=== PATIENT | female | born 1995 | race Caucasian/White ===

== ENCOUNTER 2017-10-12 21:12 | Emergency (ER) | payer MEDICAID, SELFPAY ==
[2017-10-12 21:13] VITALS: BP 144/102; PULSE 87; RESP 20; TEMP 36.5; O2SAT 96; BMI 42.9
[2017-10-12 22:28] LABS: Absolute Lymphocyte Count 2.84 X10^3/ul (0.83-4.51); Absolute Neutrophil Count 10.5 X10^3/uL (2.0-7.7); Basophil# 0.02 X10^3/uL; Basophil% 0.1 % (0-1); Eosinophil# 0.05 X10^3/uL; Eosinophils% 0.3 % (0-5); Hematocrit 45.5 % (37-47); Hemoglobin 15.1 g/dl (12.0-15.0); Lymphocyte # 2.84 X10^3/ul (4.0); Lymphocyte % 19.9 % (19-41); Mean Corp Hgb Conc 33.2 g/gl (32-36); Mean Corpuscular Hgb 29.3 pg (27.0-32.0); Mean Corpuscular Volume 88.2 fL (81-99); Mean Platelet Vol. 9.1 fl (6.2-12.0); Monocyte# 0.84 X10^3/uL; Monocyte% 5.9 % (0-10); Neutrophil # 10.49 X10^3/uL (2.7-7.7); Neutrophil % 73.4 % (47-70); Platelet Count 283 K/mm3 (150-450); RBC Distribution Width CV 12.7 % (11.6-14.6); RBC Distribution Width SD 40.8 fl (35.1-43.9); Red Blood Count 5.16 M/mm3 (4.2-5.4); White Blood Count 14.3 K/mm3 (4.4-11.0)
[2017-10-12 22:29] LABS: POSITIVE COUNT NO; POSITIVE DIFFERENTIAL NO; POSITIVE MORPHOLOGY NO
[2017-10-12 22:50] LABS: Anion Gap 8 (5-15); BUN 7 mg/dL (7-18); BUN/Creat Ratio 9.6 RATIO (10-20); Calcium,Total 8.9 mg/dL (8.5-10.1); Chloride 107 mmol/L (98-107); Creatinine, Serum 0.73 mg/dL (0.55-1.02); EST Glomerular Filtration Rate 104 mL/min (>60); Est Glom Filt Rate - Afr Amer 126 mL/min (>60); Estimated Creatinine Clearance 102.61 ml/min; Glucose 99 mg/dL (74-106); Potassium 3.9 mmol/L (3.5-5.1); Sodium Level 140 mmol/L (136-145)
[2017-10-12 22:51] LABS: Alcohol, Blood (Medical)-Serum < 3.0 mg/dL
[2017-10-12 23:25] LABS: Pregnancy, Serum, hCG Quali. NEGATIVE Negative (0-9 Nonpreg)
--- NOTE | 2017-10-12 23:34 | NURSING ---
CALLED CRISIS TO SEE THIS PT, JEWELS IS CABLE RESPOOLER
[2017-10-12 23:55] VITALS: BP 132/82; PULSE 96; O2SAT 97
[2017-10-13 00:07] LABS: Vista UDS pH Range 6
[2017-10-13 00:20] LABS: Amphetamine Urine VISTA NEGATIVE (<1000 ng/mL); Barbiturate Urine VISTA NEGATIVE (< 200 ng/mL); Benzodiazepine Urine VISTA NEGATIVE (< 200 ng/mL); Cocaine Urine VISTA NEGATIVE (< 300 ng/mL); Ecstacy Urine VISTA NEGATIVE (< 500 ng/mL); Methadone Urine VISTA NEGATIVE (< 300 ng/mL); PCP Urine VISTA NEGATIVE (< 25 ng/mL); THC Urine VISTA NEGATIVE (< 50 ng/mL)
[2017-10-13 00:35] VITALS: BP 140/78; PULSE 82; RESP 17; O2SAT 96
--- NOTE | 2017-10-13 02:32 | ED.DCSUM_ITS ---
- ER Visit Summary Date of Service: 10/13/17 Chief Complaint: Suicidal thoughts History of Present Illness: The patient is a 22 F who has been feeling depressed due to in the past year, experienced of a nephew, then she had a miscarriage, than a month ago she had an ectopic . She just started treatment at the counseling center and is on no medications for depression yet. She was crying and acting out earlier, her fianc? said that when she does that she usually just needs her space and some time alone. However then she was in the bathroom carrying on and so he checked on her and she was getting some pills and acting as if she was trying to take a bunch of them. He said maybe a handful, less than 10 total, she does not know what the medication was as it was someone else's prescription. She said at that time, she had the intention of harming herself now is no longer suicidal though. She regrets doing that. Her boyfriend shook her to get the pills out of her mouth, she ended up swallowing none of them. She has no physical symptoms now and no recent illnesses. They had called crisis and they recommended that she be evaluated in the ER. Physical Examination: Normal vital signs, depressed affect but otherwise her physical exam is normal. Test Results: Labs, toxicology, all negative/normal. Emergency Department Course and Treatment: Crisis evaluated patient, they came up with a safety plan for home and close outpatient follow-up, she will be seen today later, at the counseling center for a counseling appointment. She is asking for something to take on an as-needed basis to help her calm down, I gave her a prescription for Vistaril and spoke with her fianc? separate from the patient, he is comfortable with her having that medication will help her manage it. I gave her a limited supply. Treatment Plan: As above Disposition: Discharge home Impression: Suicidal thoughts Major depression Situational reaction to stress This note was generated with [employer] dictation software. It may contain incorrect words, spelling, and punctuation that were not noted in review of the chart prior to signing ED Disposition - Plan for ED Patient: Disposition: Home or Assisted Living Chief Complaint: Suicidal Instructions: ED Depression Prescriptions: Hydroxyzine Pamoate [Vistaril] 50 mg PO 4X/DAY PRN PRN #20 cap PRN Reason: Anxiety Referrals: Counseling,Center [GROUP OF PHYSICIANS] - Keep Xavier appointment
[2017-10-13 02:33] VITALS: BP 158/97; PULSE 72; RESP 18; O2SAT 96
== END 2017-10-13 02:46 | disposition home or self-care (01) ==
PROVIDERS: Emergency Provider Emergency Medicine
DX: R45.851 Suicidal ideations (principal); F32.9 Major depressive disorder, single episode, unspecified; F43.9 Reaction to severe stress, unspecified; F41.9 Anxiety disorder, unspecified; E66.9 Obesity, unspecified
CPT/HCPCS: 80048; 80307; 80320; 84703; 85025; 99284; G0480

== ENCOUNTER 2018-03-14 09:46 | Emergency (ER) | payer MEDICAID, SELFPAY ==
[2018-03-14 09:47] VITALS: BP 137/82; PULSE 112; RESP 18; TEMP 36.3; O2SAT 95; BMI 42.1
--- NOTE | 2018-03-14 10:18 | ED.DCSUM_ITS ---
- ER Visit Summary Date of Service: 03/14/18 Chief Complaint: [Abdominal pain] History of Present Illness: The patient is a 22 F [presents the emergency department with complaint of abdominal pain off and on for the last 2 weeks. Patient states the first episode she had was about 2 weeks ago and it woke her up from sleep one morning. Patient states the pain will typically last about an hour and then resolved. Patient states at times she gets nauseated and does vomit when the pain hits. Patient states that about a week and a half ago she started having watery stools and has had typically anywhere from 5-10 watery stools per day. Patient denies any fever. She denies recent antibiotic usage or recent travel. Patient denies any sick contacts.] Physical Examination: [HEENT-PERRLA, EOMI. Cranial nerves II through XII grossly intact. TMs clear. Mucous membranes moist. No adenopathy. Cardiovascular-regular rate and rhythm without murmur or ectopy Lungs-clear to auscultation, chest wall stable without crepitus or subcu emphysema Abdomen-normoactive bowel sounds, soft. Patient has some diffuse tenderness on palpation with some mild guarding. No rebound, rigidity or perineal signs noted. Patient has a negative Angela sign. Extremities-intact ?4, normal range of motion, normal pulses, atraumatic] Test Results: [CBC with differential obtained showed a white count of 10.7, hemoglobin 14.6, hematocrit 44, platelets 269. Chemistries showed slight depressed potassium at 2.9 chemistries otherwise unremarkable. LFTs were normal. Urinalysis was unremarkable. HCG was negative.] Emergency Department Course and Treatment: [Patient was medicated in the emergency department with Bentyl, Toradol, and Phenergan.] Treatment Plan: [At this point I do not feel any imaging is indicated as patient has had intermittent abdominal pain for weeks. Her abdominal exam is benign. She has no tenderness over the area of the gallbladder. I do not feel her exam and history consistent with appendicitis. Stool was sent for enteric pathogens.] Disposition: [Discharged home in stable condition]. Patient will be referred to Dr. Janneth Cespedes for follow-up if her symptoms persist. Impression: [Abdominal pain-etiology uncertain Diarrhea] This note was generated with [employer]ation software. It may contain incorrect words, spelling, and punctuation that were not noted in review of the chart prior to signing ED Disposition - Plan for ED Patient: Chief Complaint: Abd Pain Referrals: Care Physician,No Primary [Primary Care Provider] -
[2018-03-14] MEDS: Ketorolac 30 MG/ML Syringe IV (10:27)
[2018-03-14] MEDS: Dicyclomine 20 MG/2 ML Vial IM (10:27)
[2018-03-14] MEDS: 0.9% Normal Saline 1,000 ML 125 ML IV (10:27)
[2018-03-14 10:34] LABS: Color, Urine Yellow (Yellow); Glucose, Dipstick Normal (Normal); Ketone-Dipstick 5 mg/dl (Negative); Leukocyte Esterase-Dipstick 100 /ul (Negative); Nitrite-Dipstick Negative (Negative); Occult Blood-Urine 10 /ul (Negative); Protein-Dipstick 30 mg/dl (Negative); Urine Clarity Cloudy (Clear); Urine Urobilinogen 1 mg/dl (Normal)
[2018-03-14 10:35] LABS: Absolute Lymphocyte Count 2.43 X10^3/ul (0.83-4.51); Absolute Neutrophil Count 7.3 X10^3/uL (2.0-7.7); Basophil# 0.03 X10^3/uL; Basophil% 0.3 % (0-1); Eosinophil# 0.19 X10^3/uL; Eosinophils% 1.8 % (0-5); Hematocrit 43.7 % (37-47); Hemoglobin 14.6 g/dl (12.0-15.0); Lymphocyte # 2.43 X10^3/ul (4.0); Lymphocyte % 22.8 % (19-41); Mean Corp Hgb Conc 33.4 g/gl (32-36); Mean Corpuscular Volume 86.9 fL (81-99); Mean Platelet Vol. 8.8 fl (6.2-12.0); Monocyte# 0.71 X10^3/uL; Monocyte% 6.6 % (0-10); Neutrophil # 7.31 X10^3/uL (2.7-7.7); Neutrophil % 68.4 % (47-70); Platelet Count 269 K/mm3 (150-450); RBC Distribution Width CV 13.3 % (11.6-14.6); RBC Distribution Width SD 42.3 fl (35.1-43.9); Red Blood Count 5.03 M/mm3 (4.2-5.4); White Blood Count 10.7 K/mm3 (4.4-11.0)
[2018-03-14 10:40] LABS: POSITIVE COUNT NO; POSITIVE DIFFERENTIAL NO; POSITIVE MORPHOLOGY NO; Urine Bilirubin Dipstick 1 mg/dL (Negative)
[2018-03-14 10:43] LABS: Bacteria 2+ /hpf (None Seen); Calcium Oxalate Crystals Ur 1+ /hpf (<or=2+); Mucous, Urine 2+ /hpf (<or=2+); Red Blood Cells-Urine 0-5 SEEN /hpf (0-5); Squamous Epithelial Cells - UA 5-10 SEEN /hpf (5-10); White Blood Cells 0-5 SEEN /hpf (0-5)
[2018-03-14 10:51] LABS: AST(SGOT) 15 U/L (15-37); Alanine Aminotransfer ALT/SGPT 25 U/L (13-56); Albumin, Serum 3.7 g/dL (3.2-5.0); Alkaline Phosphatase 106 U/L (45-117); Anion Gap 10 (5-15); BUN 7 mg/dL (7-18); BUN/Creat Ratio 8.1 RATIO (10-20); Calcium,Total 8.3 mg/dL (8.5-10.1); Chloride 104 mmol/L (98-107); Creatinine, Serum 0.86 mg/dL (0.55-1.02); EST Glomerular Filtration Rate 85 mL/min (>60); Est Glom Filt Rate - Afr Amer 103 mL/min (>60); Globulin 3.8 g/dL (2.2-4.2); Glucose 103 mg/dL (74-106); Lipase 83 U/L (73-393); Potassium 2.9 mmol/L (3.5-5.1); Protein, Total 7.5 g/dL (6.4-8.2); Sodium Level 141 mmol/L (136-145)
[2018-03-14 10:53] LABS: Pregnancy, Serum, hCG Quali. NEGATIVE Negative (0-9 Nonpreg)
[2018-03-14] MEDS: proMETHazine 25 MG/ML Syringe 12.5 MG IV (11:45)
[2018-03-14 11:47] VITALS: BP 134/83; PULSE 91; RESP 15; O2SAT 99
--- NOTE | 2018-03-14 12:01 | ED.DEP ---
ED Disposition - Plan for ED Patient: Chief Complaint: Abd Pain Instructions: ED Abdominal Pain Unkn Cause, ED Gastroenteritis Report Pend Prescriptions: Ondansetron [Zofran Odt] 4 mg PO Q8H PRN PRN #10 tab PRN Reason: Nausea Dicyclomine HCl [Bentyl] 10 mg PO TIDAC #20 cap Lansoprazole [Prevacid] 30 mg PO DAILY #30 cap Referrals: Care Physician,No Primary [Primary Care Provider] - Janneth Cespedes MD [STAFF PHYSICIAN] - 3-5 Days
[2018-03-14 12:10] VITALS: BP 117/81; PULSE 86; RESP 12; O2SAT 99
== END 2018-03-14 12:13 | disposition home or self-care (01) ==
LOC: ED 10:47
PROVIDERS: Emergency Provider Emergency Medicine
DX: R10.9 Unspecified abdominal pain (principal); R19.7 Diarrhea, unspecified; R11.2 Nausea with vomiting, unspecified
CPT/HCPCS: 80053; 81001; 83690; 84703; 85025; 87506; 96361; 96372; 96374; 96375; 99283; J7030

== ENCOUNTER → 2018-09-29 16:26 | Outpatient (CLI) | payer MEDICAID, SELFPAY ==
[2018-09-29 17:41] LABS: hCG Titer Quant., Serum < 1 mIU/mL (<9 non-preg)
== END ==
PROVIDERS: Referring Provider Obstetrics & Gynecology; Visit Provider Obstetrics & Gynecology
DX: N91.2 Amenorrhea, unspecified (principal)
CPT/HCPCS: 36415; 84702

== ENCOUNTER → 2019-07-07 16:37 | Outpatient (CLI) | payer MEDICAID, SELFPAY ==
[2019-07-07 18:18] LABS: hCG Titer Quant., Serum 112 mIU/mL (1-3)
== END ==
PROVIDERS: Visit Provider Obstetrics & Gynecology
DX: N91.2 Amenorrhea, unspecified (principal); O20.0 Threatened abortion; R87.613 High grade squamous intraepithelial lesion on cytologic smear of cervix (HGSIL); Z12.4 Encounter for screening for malignant neoplasm of cervix; Z11.3 Encounter for screening for infections with a predominantly sexual mode of transmission
CPT/HCPCS: 36415; 84702

== ENCOUNTER → 2019-07-09 16:58 | Outpatient (CLI) | payer MEDICAID, SELFPAY ==
[2019-07-09 17:26] LABS: hCG Titer Quant., Serum 77 mIU/mL (1-3)
== END ==
PROVIDERS: Referring Provider Obstetrics & Gynecology; Visit Provider Obstetrics & Gynecology
DX: N91.2 Amenorrhea, unspecified (principal); O20.0 Threatened abortion; Z3A.00 Weeks of gestation of pregnancy not specified
CPT/HCPCS: 36415; 84702

== ENCOUNTER 2019-07-14 16:36 | Outpatient (RCR) | payer MEDICAID, SELFPAY ==
[2019-07-14 17:48] LABS: hCG Titer Quant., Serum 43 mIU/mL (1-3)
== END 2019-07-14 18:00 | disposition home or self-care (01) ==
LOC: LAB 16:36
PROVIDERS: Referring Provider Obstetrics & Gynecology; Visit Provider Obstetrics & Gynecology
DX: O03.9 Complete or unspecified spontaneous abortion without complication (principal)
CPT/HCPCS: 36415; 84702

== ENCOUNTER 2020-04-11 16:30 | Emergency (ER) | payer MEDICAID, SELFPAY ==
[2020-04-11 16:31] VITALS: BP 142/62; PULSE 99; RESP 19; TEMP 36.9; O2SAT 96; BMI 49.4
[2020-04-11 17:08] VITALS: BP 142/62; PULSE 99; RESP 19; TEMP 36.9; O2SAT 96
--- NOTE | 2020-04-11 17:11 | CT_ITS ---
STUDY: CT ABDOMEN AND PELVIS WITH CONTRAST REASON FOR EXAM: Female, 24 years old. LT ABD PAIN. H/O R SIDE OVARIAN CYST SX LAST FRI RADIATION DOSAGE (If Supplied By Facility): CTDIvol = ( 13.75 ) mGy, DLP = ( 1357.82 ) mGycm TECHNIQUE: Transaxial images were obtained from the dome of the diaphragm to the symphysis pubis without oral contrast. Oral and amp; IV Gastrografin and amp; 100mL Isovue-300 was administered. Sagittal and coronal images were reconstructed. Individualized dose optimization techniques were used for this CT. COMPARISON: Previous study of 03/06/2016 FINDINGS: The visualized lung bases are unremarkable. The visualized portions of the heart are within normal limits. Normal liver. Normal gallbladder and extrahepatic biliary system. Normal spleen. Normal pancreas. Normal bilateral adrenal glands. Normal right kidney. Normal left kidney. Normal visualized stomach. Normal small intestine. Normal colon. The appendix is visualized and appears normal. Normal abdominal aorta. Normal inferior vena cava. Normal retroperitoneum. Normal urinary bladder. Uterus and adnexal structures are within normal limits. There is a tiny amount of free fluid in the deep pelvis. There are several punctate air densities in the subcutaneous soft tissues of the umbilical region and left rectus muscle. Normal osseous structures. CT/Abdomen/Pelvis WITH Contrast IMPRESSION: Tiny amount of free fluid in the deep pelvis. No ovarian cyst is seen. Several punctate air densities seen in the subcutaneous soft tissues of the umbilical region and left rectus muscle. These are of unknown etiology or significance. Electronically Signed: Bart Sanchez MD at 19:30 EDT , Service support ,
--- NOTE | 2020-04-11 17:14 | ED.DCSUM_ITS ---
- ER Visit Summary Date of Service: 04/11/20 Chief Complaint: Abdominal pain History of Present Illness: The patient is a 24 F who presents with abdominal pain that began yesterday. Patient states it has gradually gotten worse. Patient describes the pain is burning and aching. Patient states the pain is over the lower abdomen. Patient states it started on the left but is spreading over to the right side. Patient states her pain is worse with movement. Patient states she had recent surgery 5 days ago for ovarian cyst. Patient denies any nausea or vomiting. Patient denies any diarrhea, melena, or hematochezia. Patient denies any dysuria or hematuria. Patient denies any fevers or chills. Patient states she is currently on her menstrual cycle. Physical Examination: Vital signs are stable. Patient is afebrile. Patient is in no acute distress. Oral mucosa is pink and moist. Neck is supple. Trachea is midline. There is no JVD. Heart was regular rate and rhythm. Lungs are clear and equal bilaterally. Abdomen is soft. Bowel sounds are normal. There is tenderness over the lower abdomen. There is no rebound or guarding noted. There is some mild erythema and induration over the lower part of the incision. There is no discharge or drainage. There is no fluctuance or abscess formation. Cranial nerves II through XII are intact. There are no focal motor or sensory deficits noted. Test Results: CBC shows mild leukocytosis of 14.8. Comprehensive metabolic profile and urinalysis were normal. Lactate was normal. Serum hCG was negative. CT scan of the abdomen and pelvis was obtained. There is no acute intra-abdominal pathology. There are small pockets of air in the infraumbilical area. This is most likely consistent with recent surgery. Interpreted by the radiologist and reviewed by myself. Emergency Department Course and Treatment: Patient was given morphine and Zofran here. Patient was given a dose of Unasyn here. Patient was started on Augmentin. Patient was instructed to follow-up with her surgeon and primary care physician in 5 to 7 days. Patient was instructed to return if worse in any way. Patient understood and was agreeable with the plan. All questions were answered. Disposition: Discharge home Impression: Abdominal cellulitis This note was generated with [employer] dictation software. It may contain incorrect words, spelling, and punctuation that were not noted in review of the chart prior to signing ED Disposition - Plan for ED Patient: Disposition: Home or Assisted Living Diagnosis: Abdominal wall cellulitis Instructions: ED Cellulitis Prescriptions: Amox/Clavulanate Tablet [Augmentin Tablet] 875 mg PO Q12H #20 tab Prescription Printed Hydrocodone Bitart/Apap 5-325 [Art 5MG-325MG] 1 tab PO Q6H PRN PRN 3 Days #10 tab PRN Reason: Pain Prescription Printed Referrals: Carlos Zavala MD [Primary Care Provider] -
[2020-04-11 17:48] LABS: Absolute Lymphocyte Count 2.61 X10^3/uL (0.83-4.51); Absolute Neutrophil Count 11.1 X10^3/uL (2.0-7.7); Basophil# 0.04 X10^3/uL; Basophil% 0.3 % (0-1); Eosinophil# 0.11 X10^3/uL; Eosinophils% 0.7 % (0-5); Hematocrit 43.2 % (37-47); Lymphocyte # 2.61 X10^3/ul (4.0); Lymphocyte % 17.6 % (19-41); Mean Corp Hgb Conc 32.4 g/dL (32-36); Mean Corpuscular Hgb 29.2 pg (27.0-32.0); Mean Platelet Vol. 9.1 fl (6.2-12.0); Monocyte# 0.89 X10^3/uL; NRBC Flagged by Analyzer 0 % (0-5); Neutrophil % 74.8 % (47-70); Platelet Count 326 K/mm3 (150-450); RBC Distribution Width CV 12.6 % (11.6-14.6); RBC Distribution Width SD 41.6 fl (35.1-43.9); White Blood Count 14.8 K/mm3 (4.4-11.0)
[2020-04-11 17:50] LABS: Bacteria 0 SEEN /hpf (None Seen); Mucous, Urine 0 SEEN /hpf (<or=2+); Red Blood Cells-Urine 0 SEEN /hpf (0-5)
[2020-04-11 17:52] LABS: Color, Urine Yellow (Yellow); Glucose, Dipstick Normal (Normal); Ketone-Dipstick Negative (Negative); Leukocyte Esterase-Dipstick 25 /ul (Negative); Nitrite-Dipstick Negative (Negative); Occult Blood-Urine 10 /ul (Negative); Protein-Dipstick Negative (Negative); Urine Bilirubin Dipstick Negative (Negative); Urine Clarity Clear (Clear); Urine Urobilinogen Normal (Normal)
[2020-04-11] MEDS: 0.9% Normal Saline 1,000 ML 1000 ML IV (17:56)
[2020-04-11] MEDS: Ondansetron 4 MG/2 ML Vial IV (17:57)
[2020-04-11] MEDS: Morphine 4 MG/ML Syringe IV (17:58)
[2020-04-11 18:06] LABS: ALB/GLOB Ratio 0.9 RATIO (0.9-2.4); AST(SGOT) 16 U/L (15-37); Alanine Aminotransfer ALT/SGPT 44 U/L (13-56); Albumin, Serum 3.5 g/dL (3.2-5.0); Alkaline Phosphatase 100 U/L (45-117); Anion Gap 4 (5-15); BUN 8 mg/dL (7-18); BUN/Creat Ratio 11.3 RATIO (10-20); Calcium,Total 8.8 mg/dL (8.5-10.1); Chloride 104 mmol/L (98-107); Creatinine, Serum 0.71 mg/dL (0.55-1.02); EST Glomerular Filtration Rate 106 mL/min (>60); Est Glom Filt Rate - Afr Amer 128 mL/min (>60); Estimated Creatinine Clearance 99.33 ml/min; Glucose 78 mg/dL (74-106); Potassium 3.5 mmol/L (3.5-5.1); Protein, Total 7.5 g/dL (6.4-8.2); Sodium Level 140 mmol/L (136-145)
[2020-04-11 18:08] LABS: Internal QC Validated? YES +Cl - CLEAR BKGD; Pregnancy, Serum, hCG Quali. NEGATIVE Negative
[2020-04-11 18:27] LABS: Lactic Acid 1.3 mmol/L (0.4-1.9)
[2020-04-11 19:01] LABS: Squamous Epithelial Cells - UA 5-10 SEEN /hpf (5-10); White Blood Cells 0-5 SEEN /hpf (0-5)
[2020-04-11 19:31] VITALS: BP 137/94; PULSE 97; RESP 16; RESP 18; TEMP 37.4; O2SAT 97
[2020-04-11 21:03] VITALS: BP 141/93; PULSE 90; PULSE 96; RESP 14; RESP 16; TEMP 37.2; O2SAT 98; O2SAT 99
[2020-04-11 22:07] VITALS: BP 141/93; PULSE 96; RESP 16; TEMP 37.2; O2SAT 99
== END 2020-04-11 22:09 | disposition home or self-care (01) ==
PROVIDERS: Emergency Provider Emergency Medicine; PCP Family Medicine
DX: L03.311 Cellulitis of abdominal wall (principal); E66.9 Obesity, unspecified; K21.9 Gastro-esophageal reflux disease without esophagitis; F41.9 Anxiety disorder, unspecified; G43.909 Migraine, unspecified, not intractable, without status migrainosus; Z79.899 Other long term (current) drug therapy
CPT/HCPCS: 74177; 80053; 81001; 83605; 84703; 85025; 96361; 96365; 96374; 96375; 99285; J7030; A4216; J0295; J2405

== ENCOUNTER 2020-04-12 22:10 | Emergency (ER) | payer MEDICAID, SELFPAY ==
[2020-04-11 16:31] VITALS: BMI 49.4
[2020-04-12 22:11] VITALS: BP 158/86; PULSE 89; RESP 16; TEMP 36.4; O2SAT 96; BMI 49.4
--- NOTE | 2020-04-12 23:14 | ED.VIS.GI ---
History of Present Illness Chief Complaint: Wound Informant: Patient - Abdominal Pain/Flank Pain Onset: Days Context: Gradual Onset Narrative: Patient is a 24-year-old female with morbid obesity presenting with drainage from her operative incision site. Patient had exploratory laparoscopy on 04/06 at [facility] for concern for suspected right ovarian torsion. He was found to have a ruptured hemorrhagic cyst. She came to the ER yesterday where she was seen for worsening pain in her incision site and redness. Patient was thought to have cellulitis and had a CT and blood work. She was given a dose of Unasyn and discharged home with Augmentin. Patient followed up with her local OB, Dr. Vega at [facility] today. Was thought that her abdominal pain was more from muscle soreness associated with her incision?per the patient. Tonight patient did not have any change in her pain was continued to have diffuse abdominal pain. She started to have bloody drainage from the base of her incision and came to the emergency room for further evaluation. She denies any fever or chills. She denies any nausea or vomiting. Said some mild constipation but attributes that to her pain medication. Her last bowel movement was yesterday. She been taking Percocet at home for pain. Patient denies any urinary symptoms. Past Medical History - Allergies and Home Meds Allergies/Adverse Reactions: Allergies hydromorphone HCl [From Dilaudid] Allergy (Severe, Verified 04/12/20 22:13) Anaphylaxis meperidine HCl [From Demerol] Adverse Reaction (Verified 04/12/20 22:13) PT STATES DOES NOT LIKE THE WAY IT MAKES HER FEEL Primary Care Physician: Carlos Zavala MD [Primary Care Provider] - Bright Vega MD [STAFF PHYSICIAN] - Past Medical History: - - History of ectopic Surgical History: - - Left salpingectomy Lives: Spouse/ Significant Other Smoking Status: Former smoker Review of Systems General: Denies: Chills, Fever, Sweats Eyes: Denies: Visual changes - bilaterally, Diplopia ENT: Denies: Rhinorrhea, Sore throat Cardiovascular: Denies: Chest pain, Palpitations Respiratory: Denies: Dyspnea, Cough, Dyspnea on exertion Gastrointestinal: Reports: Abdominal pain, Constipation. Denies: Nausea, Vomiting, Diarrhea, Melena, Hematochezia Genitourinary: Denies: Dysuria, Hematuria, Frequency Musculoskeletal: Denies: Back pain, Extremity Pain Skin: Reports: Wounds - Lower mid abdomen. Denies: Rash Neurological: Denies: Headache, Weakness, Numbness Physical Exam Vital Signs/Narrative: Vital Signs Temp Pulse Resp BP Pulse Ox 04/12/20 22:11 97.6 F L 89 16 158/86 H 96 Inital Vital Signs reviewed: Yes General: Well nourished, Well developed, Obese, No Acute Distress Head: Normocephalic, Atraumatic Eyes: Perrl, EOMI ENT: Moist mucous membranes, No rhinorrhea Neck: Supple, Nontender Cardiovascular: Regular rate, Regular rhythm, No murmurs Respiratory: No distress, CTA bilaterally, Chest nontender Abdomen: Soft, Nondistended, Normal bowel sounds, Tender - Diffuse but more focused in the suprapubic region and the left side. Negative for: Guarding, Rebound tenderness Back: Nontender, Normal Inspection. Negative for: CVA tenderness Extremities: Nontender, No edema Skin: Normal color, Rash, - - Surgical midline incision below the level of the umbilicus. At the base of the incision patient has bloody/purulent discharge coming out with surrounding erythema and some mild skin induration. It is tender to palpation. Neurological: Alert, Oriented x3, Cranial nerves II-XII grossly intact, Normal Strength, Normal Sensation Psychological: Normal affect, Normal Mood Diagnostic/Tx/Re-eval Laboratory Data 04/12/20 04/12/20 04/12/20 23:14 23:14 23:14 WBC 13.6 H RBC 4.46 Hgb 13.0 Hct 40.0 MCV 89.7 MCH 29.1 MCHC 32.5 RDW Std Deviation 41.9 RDW Coeff of Michel 12.7 Plt Count 326 MPV 9.4 Immature Gran % (Auto) 0.700 Neut % (Auto) 68.3 Lymph % (Auto) 22.6 [place] % (Auto) 7.2 Eos % (Auto) 0.9 Baso % (Auto) 0.3 Absolute Neuts (auto) 9.3 H Absolute Lymphs (auto) 3.06 Nucleated RBC % 0 Sodium 140 Potassium 4.1 Chloride 107 Carbon Dioxide 29.0 Anion Gap 4 L BUN 11 Creatinine 0.67 Estim Creat Clear Calc 105.26 Est GFR (MDRD) Af Amer 137 Est GFR (MDRD) Non-Af 113 BUN/Creatinine Ratio 16.5 Glucose 102 Lactic Acid 1.3 Calcium 8.6 Total Bilirubin 0.60 AST 56 H ALT 49 Alkaline Phosphatase 109 Total Protein 6.9 Albumin 3.1 L Globulin 3.8 Albumin/Globulin Ratio 0.8 L Lipase 82 Urine Color Urine Clarity Urine pH Ur Specific [place] Urine Protein Urine Glucose (UA) Urine Ketones Urine Occult Blood Urine Nitrite Urine Bilirubin Urine Urobilinogen Ur Leukocyte Esterase Urine RBC Urine WBC Ur Squamous Epith Cells Urine Bacteria Urine Mucus Urine Test 04/13/20 04/13/20 00:01 00:01 WBC RBC Hgb Hct MCV MCH MCHC RDW Std Deviation RDW Coeff of Michel Plt Count MPV Immature Gran % (Auto) Neut % (Auto) Lymph % (Auto) [place] % (Auto) Eos % (Auto) Baso % (Auto) Absolute Neuts (auto) Absolute Lymphs (auto) Nucleated RBC % Sodium Potassium Chloride Carbon Dioxide Anion Gap BUN Creatinine Estim Creat Clear Calc Est GFR (MDRD) Af Amer Est GFR (MDRD) Non-Af BUN/Creatinine Ratio Glucose Lactic Acid Calcium Total Bilirubin AST ALT Alkaline Phosphatase Total Protein Albumin Globulin Albumin/Globulin Ratio Lipase Urine Color Yellow Urine Clarity Clear Urine pH 7.0 Ur Specific [place] 1.010 Urine Protein Negative Urine Glucose (UA) Normal Urine Ketones Negative Urine Occult Blood 150 H Urine Nitrite Negative Urine Bilirubin Negative Urine Urobilinogen 12 H Ur Leukocyte Esterase 25 H Urine RBC 0-5 SEEN Urine WBC 0-5 SEEN Ur Squamous Epith Cells 0-5 SEEN Urine Bacteria 0 SEEN Urine Mucus 0 SEEN Urine Test Negative - Medical Decision Making Patient is evaluated for bleeding from her operative site. Patient is one-week postop from exploratory laparoscopy for suspected ovarian torsion. Patient did not have a torsion. She has had difficulty with pain control since the surgery and was seen yesterday and diagnosed with surgical site and cellulitis. Patient's drainage is consistent with a spontaneous draining abscess. CT from yesterday is reviewed which does show small superficial abscess this suspect is the source of the drainage. Patient has improvement of her leukocytosis and while her abdomen is tender it is not peritoneal. Her lactate is normal. She does not have any acute laboratory abnormalities. I do not think repeat imaging is indicated at this time. Patient is given morphine and Zofran for pain control in the emergency room. Wound culture is obtained from the site but patient will be continued on Augmentin. I do not think there is been enough time to consider this a failure of outpatient antibiotics as she was a started on them yesterday. In addition as the surgical site is now draining well I do not think it needs to be opened up further. Case is discussed with Dr. Vega, her [employer], who is agreeable with this plan. He actually evaluated her earlier today and it sounds like her abdominal exam is not changed except for the now draining abscess. Patient is counseled on signs and symptoms requiring return to the emergency room. Patient verbalizes agreement and understand this plan. Patient discharged home in stable and improved condition. ED Disposition - Plan for ED Patient: Disposition: Home or Assisted Living Diagnosis: Abdominal wall abscess at site of surgical wound Instructions: ED Abscess Antibiotic Treatment Only, ED Wound Infection after surgery Referrals: Carlos Zavala MD [Primary Care Provider] - Bright Vega MD [STAFF PHYSICIAN] - Additional Instructions: Continue taking antibiotics as prescribed. Continue to encourage drainage of the abscess with warm compresses. Please follow-up closely with your [employer], Dr. Vega.
[2020-04-12] MEDS: morphine 8 MG/ML Syringe 6 MG IV (23:20)
[2020-04-12] MEDS: Ondansetron 4 MG/2 ML Vial IV (23:27)
[2020-04-12 23:52] LABS: Absolute Lymphocyte Count 3.06 X10^3/uL (0.83-4.51); Absolute Neutrophil Count 9.3 X10^3/uL (2.0-7.7); Basophil# 0.04 X10^3/uL; Basophil% 0.3 % (0-1); Eosinophil# 0.12 X10^3/uL; Eosinophils% 0.9 % (0-5); Lymphocyte # 3.06 X10^3/ul (4.0); Lymphocyte % 22.6 % (19-41); Mean Corp Hgb Conc 32.5 g/dL (32-36); Mean Corpuscular Hgb 29.1 pg (27.0-32.0); Mean Corpuscular Volume 89.7 fL (81-99); Mean Platelet Vol. 9.4 fl (6.2-12.0); Monocyte# 0.98 X10^3/uL; Monocyte% 7.2 % (0-10); NRBC Flagged by Analyzer 0 % (0-5); Neutrophil # 9.26 X10^3/uL (2.7-7.7); Neutrophil % 68.3 % (47-70); Platelet Count 326 K/mm3 (150-450); RBC Distribution Width CV 12.7 % (11.6-14.6); RBC Distribution Width SD 41.9 fl (35.1-43.9); Red Blood Count 4.46 M/mm3 (4.2-5.4); White Blood Count 13.6 K/mm3 (4.4-11.0)
[2020-04-12 23:54] LABS: ALB/GLOB Ratio 0.8 RATIO (0.9-2.4); AST(SGOT) 56 U/L (15-37); Alanine Aminotransfer ALT/SGPT 49 U/L (13-56); Albumin, Serum 3.1 g/dL (3.2-5.0); Alkaline Phosphatase 109 U/L (45-117); Anion Gap 4 (5-15); BUN 11 mg/dL (7-18); BUN/Creat Ratio 16.5 RATIO (10-20); Calcium,Total 8.6 mg/dL (8.5-10.1); Chloride 107 mmol/L (98-107); Creatinine, Serum 0.67 mg/dL (0.55-1.02); EST Glomerular Filtration Rate 113 mL/min (>60); Est Glom Filt Rate - Afr Amer 137 mL/min (>60); Estimated Creatinine Clearance 105.26 ml/min; Globulin 3.8 g/dL (2.2-4.2); Glucose 102 mg/dL (74-106); Lipase 82 U/L (73-393); Potassium 4.1 mmol/L (3.5-5.1); Protein, Total 6.9 g/dL (6.4-8.2); Sodium Level 140 mmol/L (136-145)
[2020-04-13 00:01] LABS: Lactic Acid 1.3 mmol/L (0.4-1.9)
[2020-04-13 00:10] LABS: Bacteria 0 SEEN /hpf (None Seen); Mucous, Urine 0 SEEN /hpf (<or=2+)
[2020-04-13 00:11] LABS: Color, Urine Yellow (Yellow); Glucose, Dipstick Normal (Normal); Ketone-Dipstick Negative (Negative); Leukocyte Esterase-Dipstick 25 /ul (Negative); Nitrite-Dipstick Negative (Negative); Occult Blood-Urine 150 /ul (Negative); Protein-Dipstick Negative (Negative); Urine Bilirubin Dipstick Negative (Negative); Urine Clarity Clear (Clear); Urine Urobilinogen 12 mg/dl (Normal)
[2020-04-13 00:14] LABS: Internal QC Validated? YES +Cl - CLEAR BKGD; Pregnancy, Urine Negative Negative
[2020-04-13 00:16] VITALS: RESP 16
[2020-04-13 00:17] LABS: Red Blood Cells-Urine 0-5 SEEN /hpf (0-5); Squamous Epithelial Cells - UA 0-5 SEEN /hpf (5-10); White Blood Cells 0-5 SEEN /hpf (0-5)
[2020-04-13 02:18] VITALS: RESP 16
== END 2020-04-13 02:18 | disposition home or self-care (01) ==
PROVIDERS: Emergency Provider Emergency Medicine; PCP Family Medicine
DX: T81.41XA Infection following a procedure, superficial incisional surgical site, initial encounter (principal); L02.211 Cutaneous abscess of abdominal wall; K59.00 Constipation, unspecified; E66.01 Morbid (severe) obesity due to excess calories; Z87.891 Personal history of nicotine dependence
CPT/HCPCS: 80053; 81001; 81025; 83605; 83690; 85025; 87070; 87205; 96374; 96375; 99283; A4216; J2405

== ENCOUNTER → 2020-05-03 11:38 | Outpatient (CLI) | payer MEDICAID, SELFPAY ==
[2020-04-12 22:11] VITALS: BMI 49.4
[2020-05-03 12:04] LABS: Bacteria 0 SEEN /hpf (None Seen); Mucous, Urine 0 SEEN /hpf (<or=2+); Red Blood Cells-Urine 0 SEEN /hpf (0-5)
[2020-05-03 14:12] LABS: Color, Urine Yellow (Yellow); Glucose, Dipstick Normal (Normal); Ketone-Dipstick Negative (Negative); Leukocyte Esterase-Dipstick 100 /ul (Negative); Nitrite-Dipstick Negative (Negative); Occult Blood-Urine Negative /ul (Negative); Protein-Dipstick Negative (Negative); Urine Bilirubin Dipstick Negative (Negative); Urine Clarity Sl. Cloudy (Clear); Urine Urobilinogen Normal (Normal)
[2020-05-03 14:18] LABS: Squamous Epithelial Cells - UA 0-5 SEEN /hpf (5-10); White Blood Cells 10-25 SEEN /hpf (0-5)
== END ==
PROVIDERS: PCP Family Medicine; Visit Provider Obstetrics & Gynecology
DX: R30.0 Dysuria (principal)
CPT/HCPCS: 81001; 87077; 87086; 87088; 87186

== ENCOUNTER → 2020-05-22 | Outpatient (CLI) | payer MEDICAID, SELFPAY | END | disposition home or self-care (01) | LOC: LABSPEC 16:47 | PROVIDERS: PCP Family Medicine; Visit Provider Obstetrics & Gynecology | DX: N39.0 Urinary tract infection, site not specified (principal) | CPT/HCPCS: 87086; 87088 ==

== ENCOUNTER → 2020-05-31 16:38 | Outpatient (CLI) | payer MEDICAID, SELFPAY | PROVIDERS: PCP Family Medicine; Visit Provider Obstetrics & Gynecology | DX: R30.0 Dysuria (principal) | CPT/HCPCS: 87077; 87086; 87088; 87186 ==

== ENCOUNTER 2021-12-10 09:37 | Emergency (ER) | payer MEDICAID, SELFPAY ==
[2021-12-10 09:40] VITALS: BP 154/104; PULSE 68; RESP 14; TEMP 36.1; O2SAT 97; BMI 48.7
--- NOTE | 2021-12-10 09:54 | ED.VIS.FEGU ---
HPI HPI - Female History of Present Illness Chief Complaint: Vag Bleeding Detail of Chief Complaint: Patient presents with vaginal bleeding that started 3 days ago Informant: patient Narrative Narrative: Patient presents to the emergency department with vaginal bleeding that initially started 3 days ago and she felt was a normal period. Patient states this morning she was having a lot of lower abdominal cramping which initially started last evening. Patient passed a large clot and I was concerned that she might be having a miscarriage. Patient has not missed any periods. Patient is on the Nexplanon contraceptive. She denies urinary symptoms. Patient states that after she passed a clot she is now just having minimal bleeding. She denies feeling lightheaded or dizzy. Patient is G6, P1 with 3 abortions and 2 ectopic pregnancies. Prior similar symptoms: Yes PFSH PFSH Home Medications amoxicillin-pot clavulanate 875 mg PO Q12H #20 tab 04/11/20 [Rx Last Taken Unknown] meloxicam 15 mg PO DAILY 04/11/20 [History Last Taken Unknown] memantine 10 mg PO DAILY 04/11/20 [History Last Taken Unknown] omeprazole 20 mg PO DAILY 04/11/20 [History Last Taken Unknown] oxycodone-acetaminophen 1 tab PO Q4H PRN PRN 04/11/20 [History Last Taken Unknown] trazodone 50 mg PO QHS 04/11/20 [History Last Taken Unknown] Allergy/AdvReac Type Severity Reaction Status Date / Time hydromorphone HCl Allergy Severe Anaphylaxis Verified 12/10/21 09:39 [From Dilaudid] meperidine HCl [From Demerol] AdvReac PT STATES Verified 12/10/21 09:39 DOES NOT LIKE THE WAY IT MAKES HER FEEL Social History Smoking Status: Former smoker ROS ROS ED Constitutional Constitutional ED: Reports systems reviewed and no addt'l complaints, except as documented; Denies body ache(s), change in weight or chills Eyes Eyes: Denies acute decrease in peripheral vision, change in vision, double vision or loss of vision ENT ENT ED: Reports none; Denies ear pain, lip swelling, loss taste/smell, neck pain, otalgia or sore throat Cardiovascular Cardiovascular: Reports none; Denies abdominal pain, chest pain with activity, leg edema, lightheadedness, palpitations, rapid heart rate or syncope Respiratory/Chest Respiratory/Chest: Reports none; Denies change in mental status, dry cough, dyspnea, hemoptysis, shortness of breath at rest or shortness of breath with exertion Gastrointestinal Gastrointestinal: Reports none and abdominal pain; Denies change in stool character, diarrhea, hematemesis, hematochezia, melena, rectal bleeding or vomiting Genitourinary Genitourinary ED: Reports none and other Details: Vaginal bleeding ; Denies abdominal discomfort, anuria, dysuria, genital pain or polyuria Musculoskeletal Musculoskeletal: Reports none; Denies arthralgias, back pain, difficulty walking, extremity pain, muscle weakness or myalgias Integumentary Reports none; Denies abscess or rash Neurologic Neurologic: Reports none; Denies abnormal gait, confusion, focal weakness, frequent falls, headache(s), loss of vision, numbness, paresthesias, radicular pain, vertigo or weakness Psychiatric Psychiatric: Reports systems reviewed and no addt'l complaints, except as documented and none; Denies behavioral changes, confusion, difficulty concentrating, hallucinations, suicidal ideation, tactile hallucinations or visual hallucinations Endocrine Endocrinology: Denies none, cold intolerance, excessive sweating, fatigue or heat intolerance Hematologic/Lymphatic Hematologic/Lymphatic: Reports none; Denies anemia, easy bleeding or easy bruising Allergic/Immunologic Allergic/Immunologic ED: Denies as per HPI, none, lip swelling, mouth swelling, throat swelling, tongue swelling or hives EXAM Physical Exam Const Vital Signs: 12/10/21 09:40 12/10/21 10:13 Temperature 97 F L Temperature Source Temporal Pulse Rate 68 Pulse Rate [Lying] 72 Pulse Rate [Sitting (for 1 minute prior to obtaining)] 73 Pulse Rate [Standing (for 1 minute prior to obtaining)] 68 Respiratory Rate 14 Blood Pressure 154/104 H Blood Pressure [Lying] 141/77 H Blood Pressure [Sitting (for 1 minute prior to obtaining)] 130/66 H Blood Pressure [Standing (for 1 minute prior to obtaining)] 135/83 H Blood Pressure Mean 120 Blood Pressure Mean [Lying] 98 Blood Pressure Mean [Sitting (for 1 minute prior to obtaining)] 87 Blood Pressure Mean [Standing (for 1 minute prior to obtaining)] 100 Pulse Ox 97 Oxygen Delivery Method Room Air Positive well nourished and well developed General Appearance ED: well developed and NAD HEENT Reports TM's clear and moist mucous membranes normocephalic and atraumatic; Negative for trauma or tenderness Tympanic Membrane ED: Yes TM's clear Eyes PERRL and EOMs intact bilaterally General Eye ED: Negative for pale conjunctiva or scleral icterus Neck no lymphadenopathy, supple and no JVD General: Negative for tenderness Chest Wall inspection of chest normal and palpation of chest normal Chest: Negative for tenderness Resp normal respiratory effort and clear to auscultation bilaterally Effort and Inspection: Negative for respiratory distress or pain with movement Auscultation: Negative for rhonchi, wheezes or diminished lung sounds Cardio regular rate, regular rhythm, S1 normal heart sound, S2 normal heart sound and no murmurs Peripheral Pulses: pulses 2+ throughout GI normal to inspection, nondistended, normoactive bowel sounds, soft to palpation, non-tender, non-distended and no masses Back/Spine no CVA tenderness and no thoracic nor lumbar tenderness Extremity normal to inspection General Extremety ED: Negative for edema General Extremity: Negative for edema Neuro oriented x3, CN's II-XII intact bilaterally, no sensory deficits noted and gait normal Sensorium / Orientation: awake, alert, oriented to person, oriented to place and oriented to time Motor Exam: strength 5/5 throughout and strength abnormal Psych mental status grossly normal Skin no rashes or lesions noted and no wounds MDM MDM MDM Narrative Medical decision making narrative: IV line established on arrival. Lab work was unremarkable. I did do a Hemoccult that was positive although she had brown stool. On rectal exam I did not appreciate any hemorrhoids or fissures or masses in the rectal vault. Patient had a CT scan of the abdomen pelvis due to the fact that she has had bright red blood per rectum for about 3 months. Patient does not know her family history as she is adopted. On CT scan of the abdomen pelvis there is nothing acute noted and no evidence for Crohn's or ulcerative colitis. At this point I feel patient can follow-up with GI for possible colonoscopy. Patient advised to return if persistent heavy bleeding, worsening abdominal pain, lightheadedness, or condition should worsen anyway. Orthostatic vital signs were negative here. Lab Data Attestation: I reviewed the patient's lab results. Labs: Laboratory Results - last 24 hr 12/10/21 12/10/21 12/10/21 09:45 10:05 10:05 WBC 8.3 RBC 4.90 Hgb 14.6 Hct 42.4 MCV 86.5 MCH 29.8 MCHC 34.4 RDW Std Deviation 40.5 RDW Coeff of Michel 12.9 Plt Count 255 MPV 9.0 Immature Gran % (Auto) 0.500 Neut % (Auto) 64.7 Lymph % (Auto) 25.2 [place] % (Auto) 8.8 Eos % (Auto) 0.6 Baso % (Auto) 0.2 Absolute Neuts (auto) 5.3 Absolute Lymphs (auto) 2.08 Nucleated RBC % 0 Serum , Qual NEGATIVE Urine Color Yellow Urine Clarity Sl. Cloudy Urine pH 8.0 Ur Specific [place] 1.010 Urine Protein Negative Urine Glucose (UA) Normal Urine Ketones Negative Urine Occult Blood 250 H Urine Nitrite Negative Urine Bilirubin Negative Urine Urobilinogen Normal Ur Leukocyte Esterase Negative Urine RBC 25-50 SEEN Urine WBC 0 SEEN Ur Squamous Epith Cells 0-5 SEEN Urine Bacteria 1+ Urine Mucus 0 SEEN Radiography Diagnostic Testing: Clinical Impression(s) from Imaging Studies Abdomen/Pelvis CT 12/10/21 10:35 IMPRESSION: Normal enhanced CT of the abdomen and pelvis. Electronically Signed: Saul Ahmadi MD at 11:08 EDT , Discharge Plan Triage Chief Complaint: Vag Bleeding ED Provider: John Smalls Dx/Rx/DC Orders Clinical Impression: Acute lower GI bleeding, Abnormal vaginal bleeding, Abdominal pain Instructions: ED Abdominal Pain Unkn Cause Fem, ED MENSTRUAL CRAMPING, ED Lower GI Bleeding (Stable) Prescriptions: No Action trazodone 50 MG tablet 50 mg PO QHS RF: 0 meloxicam 15 MG tablet 15 mg PO DAILY RF: 0 oxycodone-acetaminophen 1 TABLET tablet 1 tab PO Q4H PRN PRN (Reason: Pain) RF: 0 omeprazole 20 MG capsule,delayed release(DR/EC) 20 mg PO DAILY RF: 0 memantine 10 MG tablet 10 mg PO DAILY RF: 0 amoxicillin-pot clavulanate 875 MG tablet 875 mg PO Q12H Qty: 20 RF: 0 Primary Care Provider: Carlos Zavala Referrals: Carlos Zavala MD [Primary Care Provider] - Shira,DO Oli [STAFF PHYSICIAN] - 3-5 Days Disposition Disposition: Home, Self Care
[2021-12-10 10:05] LABS: Mucous, Urine 0 SEEN /hpf (<or=2+); White Blood Cells 0 SEEN /hpf (0-5)
[2021-12-10 10:07] LABS: Color, Urine Yellow (Yellow); Glucose, Dipstick Normal (Normal); Ketone-Dipstick Negative (Negative); Leukocyte Esterase-Dipstick Negative /ul (Negative); Nitrite-Dipstick Negative (Negative); Occult Blood-Urine 250 /ul (Negative); Protein-Dipstick Negative (Negative); Urine Bilirubin Dipstick Negative (Negative); Urine Clarity Sl. Cloudy (Clear); Urine Urobilinogen Normal (Normal)
[2021-12-10 10:12] LABS: Absolute Lymphocyte Count 2.08 X10^3/uL (0.83-4.51); Absolute Neutrophil Count 5.3 X10^3/uL (2.0-7.7); Basophil# 0.02 X10^3/uL; Basophil% 0.2 % (0-1); Eosinophil# 0.05 X10^3/uL; Eosinophils% 0.6 % (0-5); Hematocrit 42.4 % (37-47); Hemoglobin 14.6 g/dL (12.0-15.0); Lymphocyte # 2.08 X10^3/ul (0.83-4.51); Lymphocyte % 25.2 % (19-41); Mean Corp Hgb Conc 34.4 g/dL (32-36); Mean Corpuscular Hgb 29.8 pg (27.0-32.0); Mean Corpuscular Volume 86.5 fL (81-99); Monocyte# 0.73 X10^3/uL; Monocyte% 8.8 % (0-10); NRBC Flagged by Analyzer 0 % (0-5); Neutrophil # 5.34 X10^3/uL (2.7-7.7); Neutrophil % 64.7 % (47-70); Platelet Count 255 K/mm3 (150-450); RBC Distribution Width CV 12.9 % (11.6-14.6); RBC Distribution Width SD 40.5 fl (35.1-43.9); White Blood Count 8.3 K/mm3 (4.4-11.0)
[2021-12-10 10:13] VITALS: BP 130/66; BP 135/83; BP 141/77; PULSE 68; PULSE 72; PULSE 73
[2021-12-10 10:14] LABS: Red Blood Cells-Urine 25-50 SEEN /hpf (0-5)
[2021-12-10 10:15] LABS: Bacteria 1+ /hpf (None Seen); Squamous Epithelial Cells - UA 0-5 SEEN /hpf (5-10)
[2021-12-10 10:34] LABS: Internal QC Validated? YES +Cl - CLEAR BKGD; Pregnancy, Serum, hCG Quali. NEGATIVE Negative
--- NOTE | 2021-12-10 10:35 | CT_ITS ---
STUDY: CT ABDOMEN AND PELVIS WITH CONTRAST REASON FOR EXAM: Female, 26 years old. Abdominal pain, rectal bleeding RADIATION DOSAGE (If Supplied By Facility): CTDIvol = ( 15.42 ) mGy, DLP = ( 1276.37 ) mGycm TECHNIQUE: Transaxial images were obtained from the dome of the diaphragm to the symphysis pubis without oral contrast. IV 100mL Isovue-300 was administered. Sagittal and coronal images were reconstructed. Individualized dose optimization techniques were used for this CT. COMPARISON: Comparison is made with prior examination dated 04/11/2020. FINDINGS: The visualized lung bases are unremarkable. The visualized portions of the heart are within normal limits. Normal liver. Normal gallbladder and extrahepatic biliary system. Normal spleen. Normal pancreas. Normal bilateral adrenal glands. Normal right kidney. Normal left kidney. Normal visualized stomach. Normal small intestine. Normal colon. The appendix is visualized and appears normal. Normal abdominal aorta. Normal inferior vena cava. Normal retroperitoneum. Normal urinary bladder. Follicles are seen in both ovaries. Normal abdominal wall. Normal osseous structures. CT/Abdomen/Pelvis W IV Cont ONLY IMPRESSION: Normal enhanced CT of the abdomen and pelvis. Electronically Signed: Saul Ahmadi MD at 11:08 EDT ,
== END 2021-12-10 11:24 | disposition home or self-care (01) ==
PROVIDERS: Emergency Provider Emergency Medicine; PCP Family Medicine; Visit Provider Emergency Medicine
DX: K92.2 Gastrointestinal hemorrhage, unspecified (principal); Z87.891 Personal history of nicotine dependence; N93.9 Abnormal uterine and vaginal bleeding, unspecified
CPT/HCPCS: 74177; 81001; 82274; 84703; 85025; 99284; Q9967; A4216

== ENCOUNTER → 2022-03-27 | Outpatient (CLI) | payer MEDICAID, SELFPAY ==
[2022-03-31 22:06] LABS: Chlamydia By Nucleic Acid AMP Negative (Negative)
[2022-03-31 23:29] LABS: Gonococcus By Nucleic Acid AMP Negative (Negative)
== END | disposition home or self-care (01) ==
LOC: LABSPEC 15:34
PROVIDERS: PCP Family Medicine; Visit Provider Obstetrics & Gynecology
DX: Z11.3 Encounter for screening for infections with a predominantly sexual mode of transmission (principal)
CPT/HCPCS: 87491; 87591

== ENCOUNTER 2022-05-27 20:49 | Emergency (ER) | payer MEDICAID, SELFPAY ==
[2022-05-27 20:51] VITALS: BP 129/96; PULSE 93; RESP 16; TEMP 36.2; O2SAT 95; BMI 31.7
--- NOTE | 2022-05-27 21:44 | EDS_ITS ---
HPI History of Present Illness Chief Complaint: Abd Pain Informant: patient Onset/Context/Timing Onset: Yesterday Context: Gradual Onset Timing: Waxes and wanes Current Severity: Mild Maximum Severity: Moderate Narrative Narrative: Patient presents secondary to lower abdominal pain. She points to the suprapubic area and bilateral groin lines. She states she also has some mild back pain making it hard to stand upright. Pain started yesterday and has been waxing and waning since. No fever or chills. She was recently diagnosed with a UTI at urgent care. She is on an antibiotic. We pulled up her urine culture on my chart. This revealed E. coli but mixed gama were noted and there was no antibiotic report available. Patient states that she had her IUD replaced about a month ago and never followed up to ensure it was located appropriately. This has made her nervous that this might be causing her pain. [facility] Medical History Ovarian cyst Home Medications memantine 10 mg tablet 10 mg PO DAILY 04/11/20 [History Last Taken Unknown] omeprazole 20 mg capsule,delayed release 20 mg PO DAILY 04/11/20 [History Last Taken Unknown] trazodone 50 mg tablet 50 mg PO QHS 04/11/20 [History Last Taken Unknown] buspirone 10 mg tablet 10 mg PO BID 05/27/22 [History Last Taken Unknown] hydrochlorothiazide 12.5 mg capsule 12.5 mg PO DAILY 05/27/22 [History Last Taken Unknown] metoprolol succinate 25 mg tablet,extended release 24 hr 25 mg PO DAILY 05/27/22 [History Last Taken Unknown] Allergy/AdvReac Type Severity Reaction Status Date / Time hydromorphone HCl Allergy Severe Anaphylaxis Verified 05/27/22 20:55 [From Dilaudid] meperidine HCl [From Demerol] AdvReac PT STATES Verified 05/27/22 20:55 DOES NOT LIKE THE WAY IT MAKES HER FEEL Surgical History History of salpingectomy Social History Smoking Status: Former smoker ROS ROS ED Constitutional Constitutional ED: Denies chills or fever(s) Eyes Eyes: Denies change in vision or discharge from eye(s) ENT ENT ED: Denies discharge from eye(s), rhinorrhea or sore throat Cardiovascular Cardiovascular: Denies chest pain or palpitations Respiratory/Chest Respiratory/Chest: Denies cough or dyspnea Gastrointestinal Gastrointestinal: Reports abdominal pain; Denies diarrhea, nausea or vomiting Genitourinary Genitourinary ED: Denies difficulty urinating or dysuria Musculoskeletal Musculoskeletal: Reports back pain; Denies extremity pain Integumentary Denies Abrasions or rash Neurologic Neurologic: Denies headache(s) or weakness Psychiatric Psychiatric: Denies anxiety or depression Allergic/Immunologic Allergic/Immunologic ED: Denies lip swelling or urticaria EXAM Physical Exam Const Vital Signs: 05/27/22 20:51 Temperature 97.2 F L Temperature Source Temporal Pulse Rate 93 Respiratory Rate 16 Blood Pressure 129/96 H Blood Pressure Mean 107 Pulse Ox 95 Oxygen Delivery Method Room Air Positive well nourished and well developed General Appearance ED: well developed HEENT Reports normocephalic and head/scalp atraumatic Eyes PERRL and EOMs intact bilaterally Neck supple Chest Wall inspection of chest normal and palpation of chest normal Resp normal respiratory effort and clear to auscultation bilaterally Cardio regular rate and regular rhythm GI normal to inspection, nondistended, normoactive bowel sounds GI Narrative: No reproducible tenderness to palpation. Palpation: soft Back/Spine no CVA tenderness Extremity normal to inspection Neuro oriented x3 and no sensory deficits noted Sensorium / Orientation: alert Motor Exam: strength 5/5 throughout Psych mental status grossly normal Skin no rashes or lesions noted MDM MDM MDM Narrative Medical decision making narrative: Lab work and urinalysis obtained. Pelvis x-ray ordered. Lab Data Attestation: I reviewed the patient's lab results. Labs: Laboratory Results - last 24 hr 05/27/22 05/27/22 05/27/22 21:45 21:45 21:45 WBC 13.2 H RBC 4.95 Hgb 14.8 Hct 44.3 MCV 89.5 MCH 29.9 MCHC 33.4 RDW Std Deviation 41.8 RDW Coeff of Michel 12.8 Plt Count 308 MPV 9.1 Immature Gran % (Auto) 0.800 Neut % (Auto) 61.4 Lymph % (Auto) 31.0 [place] % (Auto) 5.6 Eos % (Auto) 0.7 Baso % (Auto) 0.5 Absolute Neuts (auto) 8.1 H Absolute Lymphs (auto) 4.08 Nucleated RBC % 0 [address] Path Review May foll Atypical Lymphocytes 2+ Reactive Lymphocytes 1+ Platelet Estimate ADEQUATE RBC Morphology N CHROM Anisocytosis RARE Macrocytosis RARE Sodium 143 Potassium 3.3 L Chloride 106 Carbon Dioxide 31.0 Anion Gap 6 BUN 9 Creatinine 0.81 Estim Creat Clear Calc 89.29 Est GFR (MDRD) Af Amer 107 Est GFR (MDRD) Non-Af 89 BUN/Creatinine Ratio 11.1 Glucose 91 Calcium 9.2 Urine Color Yellow Urine Clarity Clear Urine pH 5.0 Ur Specific [place] 1.030 Urine Protein 15 H Urine Glucose (UA) Normal Urine Ketones 5 H Urine Occult Blood 10 H Urine Nitrite Negative Urine Bilirubin Negative Urine Urobilinogen Normal Ur Leukocyte Esterase 25 H Urine RBC 0 SEEN Urine WBC 0-5 SEEN Ur Squamous Epith Cells 0-5 SEEN Urine Bacteria 1+ Urine Mucus 0 SEEN Urine Test Negative Radiography Diagnostic Testing: Clinical Impression(s) from Imaging Studies Pelvis X-Ray 05/27/22 22:00 IMPRESSION: IUD projects over the midline. No acute abnormal finding. Electronically Signed: Ney Medina MD at 22:17 EDT , Treatment and Re-Evaluation Narrative: CBC reveals a mildly elevated white count at 13.2 with no left shift. Chemistry studies significantly for slightly low potassium at 3.3. Urinalysis shows 1+ bacteria with 0-5 white blood cells. Urine test is negative. Pelvis x-ray per my interpretation reveals no acute abnormalities. IUD appears to be in appropriate position. Radiology interpretation is reviewed and agrees. I discussed with the patient I do believe her symptoms are secondary to her UTI which has been partially treated. Repeat urine culture was sent tonight. She is currently on nitrofurantoin. I advised her that if we find that this will n ot cover her infection, she will receive a phone call we will switch her antibiotics. She voices understanding and agreement. Discharge Plan Triage Chief Complaint: Abd Pain ED Provider: Evelyn Win Dx/Rx/DC Orders Clinical Impression: Pelvic pain, UTI (urinary tract infection) Instructions: ED Cystitis Female Adult Prescriptions: No Action trazodone 50 MG tablet 50 mg PO QHS omeprazole 20 MG capsule,delayed release(DR/EC) 20 mg PO DAILY memantine 10 MG tablet 10 mg PO DAILY buspirone 10 mg tablet 10 mg PO BID Label Comments: TAKE 1 TABLET BY MOUTH TWICE DAILY hydrochlorothiazide 12.5 mg capsule 12.5 mg PO DAILY Label Comments: TAKE 1 CAPSULE BY MOUTH ONCE DAILY metoprolol succinate 25 mg tablet extended release 24 hr 25 mg PO DAILY Label Comments: TAKE 1 TABLET BY MOUTH ONCE DAILY Primary Care Provider: Carlos Zavala Referrals: Carlos Zavala MD [Primary Care Provider] - 1 Week if not improving Disposition Disposition: Home, Self Care
[2022-05-27 21:57] LABS: Mucous, Urine 0 SEEN /hpf (<or=2+); Red Blood Cells-Urine 0 SEEN /hpf (0-5)
--- NOTE | 2022-05-27 22:00 | RAD_ITS ---
STUDY: X-RAY - PELVIS REASON FOR EXAM: Female, 26 years old. Pelvic pain, IUD TECHNIQUE: One view of the pelvis was obtained. COMPARISON: 12/10/2021 CT FINDINGS: There is a nonobstructive partially visualized bowel gas pattern. Normal visualized soft tissue structures. IUD projects over the midline. Normal bilateral iliac wings, sacroiliac joints and visualized sacrum. Normal visualized bilateral superior and inferior pubic rami. Normal pubic symphysis. Normal ischial tuberosities. Normal visualized right femoral head. Normal right acetabulum. Normal right hip joint. Normal visualized left femoral head. Normal left acetabulum. Normal left hip joint. RAD/Pelvis 1 or 2 Views IMPRESSION: IUD projects over the midline. No acute abnormal finding. Electronically Signed: Ney Medina MD at 22:17 EDT ,
[2022-05-27 22:01] LABS: Absolute Lymphocyte Count 4.08 X10^3/uL (0.83-4.51); Absolute Neutrophil Count 8.1 X10^3/uL (2.0-7.7); Basophil# 0.06 X10^3/uL; Basophil% 0.5 % (0-1); Eosinophil# 0.09 X10^3/uL; Eosinophils% 0.7 % (0-5); Hematocrit 44.3 % (37-47); Hemoglobin 14.8 g/dL (12.0-15.0); Lymphocyte # 4.08 X10^3/ul (0.83-4.51); Mean Corp Hgb Conc 33.4 g/dL (32-36); Mean Corpuscular Hgb 29.9 pg (27.0-32.0); Mean Corpuscular Volume 89.5 fL (81-99); Mean Platelet Vol. 9.1 fl (6.2-12.0); Monocyte# 0.74 X10^3/uL; Monocyte% 5.6 % (0-10); NRBC Flagged by Analyzer 0 % (0-5); Neutrophil % 61.4 % (47-70); POSITIVE MORPHOLOGY YES; Platelet Count 308 K/mm3 (150-450); RBC Distribution Width CV 12.8 % (11.6-14.6); RBC Distribution Width SD 41.8 fl (35.1-43.9); Red Blood Count 4.95 M/mm3 (4.2-5.4); White Blood Count 13.2 K/mm3 (4.4-11.0)
[2022-05-27 22:02] LABS: Differential Indicated SCAN CRITERIA MET
[2022-05-27 22:09] LABS: Color, Urine Yellow (Yellow); Glucose, Dipstick Normal (Normal); Ketone-Dipstick 5 mg/dl (Negative); Leukocyte Esterase-Dipstick 25 /ul (Negative); Nitrite-Dipstick Negative (Negative); Occult Blood-Urine 10 /ul (Negative); Protein-Dipstick 15 mg/dl (Negative); Urine Bilirubin Dipstick Negative (Negative); Urine Clarity Clear (Clear); Urine Urobilinogen Normal (Normal)
[2022-05-27 22:18] LABS: Anion Gap 6 (5-15); BUN 9 mg/dL (7-18); BUN/Creat Ratio 11.1 RATIO (10-20); Calcium,Total 9.2 mg/dL (8.5-10.1); Chloride 106 mmol/L (98-107); Creatinine, Serum 0.81 mg/dL (0.55-1.02); EST Glomerular Filtration Rate 89 mL/min (>60); Est Glom Filt Rate - Afr Amer 107 mL/min (>60); Estimated Creatinine Clearance 89.29 ml/min; Glucose 91 mg/dL (74-106); Potassium 3.3 mmol/L (3.5-5.1); Sodium Level 143 mmol/L (136-145)
[2022-05-27 22:20] LABS: Bacteria 1+ /hpf (None Seen); Internal QC Validated? YES +Cl - CLEAR BKGD; Squamous Epithelial Cells - UA 0-5 SEEN /hpf (5-10); White Blood Cells 0-5 SEEN /hpf (0-5)
[2022-05-27 22:21] LABS: Pregnancy, Urine Negative Negative
[2022-05-27 22:25] LABS: Anisocytosis RARE; Atypical Lymphocyte 2+ %; Macrocytosis RARE; Platelet Estimate ADEQUATE (ADEQ); Reactive Lymphocyte 1+; Red Cell Morphology N CHROM NORMAL (NORM C&C)
[2022-05-27 23:07] VITALS: BP 117/79; PULSE 88; RESP 18; O2SAT 96
[2022-05-28 12:13] LABS: Pathologist Review Reviewed
== END 2022-05-27 23:07 | disposition home or self-care (01) ==
PROVIDERS: Emergency Provider Emergency Medicine; PCP Family Medicine; Visit Provider Emergency Medicine
DX: N39.0 Urinary tract infection, site not specified (principal); B96.20 Unspecified Escherichia coli [E. coli] as the cause of diseases classified elsewhere; Z87.891 Personal history of nicotine dependence
CPT/HCPCS: 72170; 80048; 81001; 81025; 85025; 87086; 87088; 99283; A4216

== ENCOUNTER 2023-01-21 09:36 | Emergency (ER) | payer MEDICAID, SELFPAY ==
[2023-01-21 09:38] VITALS: BP 156/97; PULSE 76; RESP 14; TEMP 36.2; O2SAT 97; BMI 49.1
--- NOTE | 2023-01-21 09:53 | EX.ED.DYSGE1 ---
HPI History of Present Illness Chief Complaint: Chest Other Informant: patient Onset/Context/Timing Onset: Weeks Context: Gradual Onset Timing: Waxes and wanes Quality: Sharp Location: Lower chest Worsened by: Laying down Relieved by: Sitting up Narrative Narrative: Patient presents with pain and swelling to her lower chest area that has been constant for the past couple weeks. Patient states it is worse when she lays down. Patient states it is better when she sits up. Patient denies any trauma or injury. Patient states the swelling is approximately the size of a baseball. Patient denies any fevers or chills. Patient does admit to some shortness of breath. Patient denies any nausea or vomiting. Patient denies any diaphoresis. [facility] Medical History (Updated 01/21/23 @ 11:[address] Favian Caceres DO) Anxiety Hypertension Ovarian cyst Home Medications memantine 10 mg tablet 10 mg PO DAILY 04/11/20 [History Last Taken Unknown] omeprazole 20 mg capsule,delayed release 20 mg PO DAILY 04/11/20 [History Last Taken Unknown] trazodone 50 mg tablet 50 mg PO QHS 04/11/20 [History Last Taken Unknown] buspirone 10 mg tablet 10 mg PO BID 05/27/22 [History Last Taken Unknown] hydrochlorothiazide 12.5 mg capsule 12.5 mg PO DAILY 05/27/22 [History Last Taken Unknown] metoprolol succinate 25 mg tablet,extended release 24 hr 25 mg PO DAILY 05/27/22 [History Last Taken Unknown] ibuprofen 600 mg tablet 600 mg PO Q8H PRN PRN pain #20 TABLETS 01/21/23 [Rx Last Taken Unknown] Allergy/AdvReac Type Severity Reaction Status Date / Time hydromorphone HCl Allergy Severe Anaphylaxis Verified 01/21/23 09:38 [From Dilaudid] meperidine HCl [From Demerol] AdvReac PT STATES Verified 01/21/23 09:38 DOES NOT LIKE THE WAY IT MAKES HER FEEL Surgical History (Updated 01/21/23 @ 09:[address] Favian Caceres DO) History of salpingectomy Hx of ovarian cystectomy Hx of tonsillectomy Social History Smoking Status: Former smoker ROS ROS ED Constitutional Constitutional ED: Denies chills or fever(s) Eyes Eyes: Denies blurry vision or change in vision ENT ENT ED: Denies rhinorrhea or sore throat Cardiovascular Cardiovascular: Reports chest pain; Denies palpitations Respiratory/Chest Respiratory/Chest: Reports dyspnea; Denies cough Gastrointestinal Gastrointestinal: Denies nausea or vomiting Genitourinary Genitourinary ED: Denies dysuria or hematuria Musculoskeletal Musculoskeletal: Denies back pain or neck pain Integumentary Denies abscess or rash Neurologic Neurologic: Reports headache(s); Denies weakness Allergic/Immunologic Allergic/Immunologic ED: Denies mouth swelling or urticaria EXAM Physical Exam Const Vital Signs: 01/21/23 09:38 Temperature 97.2 F L Temperature Source Temporal Pulse Rate 76 Respiratory Rate 14 Blood Pressure 156/97 H Blood Pressure Mean 116 Pulse Ox 97 Oxygen Delivery Method Room Air Positive well nourished, well developed and obese General Appearance ED: well developed and NAD Nutritional Appearance: obese HEENT Reports moist mucous membranes Neck supple and no JVD Chest Wall Chest Narrative: There is tenderness over the lower sternum and xiphoid process. There is no mass palpated. There is no edema. There is no erythema or warmth. There is no bony crepitance or step-off. GI non-tender and non-distended Palpation: soft Extremity normal to inspection General Extremety ED: Negative for edema or tenderness General Extremity: Negative for edema Neuro oriented x3, CN's II-XII intact bilaterally and no sensory deficits noted Sensorium / Orientation: alert Motor Exam: strength 5/5 throughout Psych mental status grossly normal Skin no rashes or lesions noted MDM MDM MDM Narrative Medical decision making narrative: Differential diagnosis includes musculoskeletal pain, hiatal hernia, GERD, and mass. Chest x-ray will be obtained to assess for sternal fracture and mass. Radiography Diagnostic Testing: PA and lateral chest x-ray was obtained. There are 2 views. On my independent interpretation, lung fernandes are clear. There is normal cardiac silhouette. Bony thorax is normal. There is no acute process noted. Radiologist also interpreted the x-ray and agrees. Treatment and Re-Evaluation :: Patient was given a dose of Toradol here. Patient is feeling better on reevaluation. Patient was advised of her findings. Patient was advised that this may be musculoskeletal in etiology. Patient was instructed to follow-up with her primary care physician in 5 to 7 days. Patient was given a prescription for ibuprofen. Patient understood and was agreeable with the plan. All questions were answered. Discharge Plan Triage Chief Complaint: Chest Other ED Provider: Favian Caceres Dx/Rx/DC Orders Clinical Impression: Chest pain, Morbid obesity with BMI of 45.0-49.9, adult Instructions: ED Chest Wall Pain, Costochondritis, ED Strain Chest Wall Prescriptions: New ibuprofen 600 mg tablet 600 mg PO Q8H PRN PRN (Reason: pain) Qty: 20 0RF No Action trazodone 50 MG tablet 50 mg PO QHS omeprazole 20 MG capsule,delayed release(DR/EC) 20 mg PO DAILY memantine 10 MG tablet 10 mg PO DAILY buspirone 10 mg tablet 10 mg PO BID Label Comments: TAKE 1 TABLET BY MOUTH TWICE DAILY hydrochlorothiazide 12.5 mg capsule 12.5 mg PO DAILY Label Comments: TAKE 1 CAPSULE BY MOUTH ONCE DAILY metoprolol succinate 25 mg tablet extended release 24 hr 25 mg PO DAILY Label Comments: TAKE 1 TABLET BY MOUTH ONCE DAILY Stand Alone Forms: ED Work / School Excuse Primary Care Provider: Carlos Zavala Referrals: Carlos Zavala MD [Primary Care Provider] - 5-7 Days Disposition Disposition: Home, Self Care
[2023-01-21] MEDS: Ketorolac 60 MG/2 ML Vial IM (10:12)
--- NOTE | 2023-01-21 10:40 | RAD_ITS ---
STUDY: X-RAY CHEST REASON FOR EXAM: Female, 27 years old. Chest pain/pressure TECHNIQUE: PA and lateral views of the chest. COMPARISON: None. FINDINGS: The lungs are clear and expanded. There is no demonstrated pleural abnormality. Normal size heart. Normal mediastinum and godfrey. Normal visualized pulmonary arteries. Normal visualized aortic arch and descending thoracic aorta. Normal visualized thoracic spine. Normal visualized ribs, clavicles, and shoulders. There is no demonstrated abnormality of the visualized soft tissue structures of the upper abdomen. RAD/Chest PA and Lateral IMPRESSION: Normal x-ray examination of the chest. Electronically Signed: Denver Luque MD at 10:58 EDT ,
[2023-01-21 11:10] VITALS: BP 113/71; PULSE 75; RESP 16; O2SAT 98
== END 2023-01-21 11:11 | disposition home or self-care (01) ==
PROVIDERS: Emergency Provider Emergency Medicine; PCP Family Medicine; Visit Provider Emergency Medicine
DX: R07.9 Chest pain, unspecified (principal); E66.01 Morbid (severe) obesity due to excess calories; Z68.42 Body mass index [BMI] 45.0-49.9, adult; I10 Essential (primary) hypertension; Z87.891 Personal history of nicotine dependence; F41.9 Anxiety disorder, unspecified; Z79.899 Other long term (current) drug therapy
CPT/HCPCS: 71046; 96372; 99283

== ENCOUNTER 2023-04-28 20:02 | Emergency (ER) | payer MEDICAID, SELFPAY ==
[2023-04-28 20:02] VITALS: BP 133/86; PULSE 88; RESP 18; TEMP 35.5; O2SAT 97; BMI 47.5
--- NOTE | 2023-04-28 20:30 | CT_ITS ---
INDICATION: Pain EXAMINATION: CT ABDOMEN AND PELVIS WITHOUT CONTRAST - CT Abdomen And Pelvis W/O Contrast Injection TECHNIQUE: Helically acquired images were obtained of the abdomen and pelvis without oral or IV contrast. A radiation dose optimization technique was used for this scan. IV Contrast dosage and agent: None. Oral contrast: None. RADIATION DOSAGE (If Supplied By Facility): CTDIvol = ( 23.95 ) mGy, DLP = ( 1268.44 ) mGycm COMPARISON: 12/10/2021. FINDINGS: LOWER CHEST: Lung bases are clear. No cardiomegaly or pericardial effusion. LIVER: Homogeneous. No focal mass. GALLBLADDER AND BILIARY TREE: No calcified gallstones. No gallbladder distension or wall edema. No intra- or extrahepatic biliary ductal dilation. PANCREAS: No focal cystic or solid mass. SPLEEN: Normal size without focal cystic or solid mass. ADRENAL GLANDS: No nodules. KIDNEYS AND URETERS: Normal right kidney. Left lower renal pole stone measuring 5 mm, otherwise unremarkable left kidney. No hydronephrosis. PERITONEUM: No ascites or free air. No other fluid collection. BOWEL: No evidence of acute appendicitis. No stomach or bowel distension. No focal inflammatory change. LYMPH NODES: No enlarged mesenteric or retroperitoneal lymph nodes. VESSELS: Aorta is non-dilated. URINARY BLADDER: Unremarkable. REPRODUCTIVE ORGANS: There is a right adnexal simple cyst measuring 5.3 x 4.2 x 4.8 cm. There is an IUD in place. ABDOMINAL WALL: No discrete abdominal or pelvic wall hernia. BONES: No lytic or blastic abnormality. CT/Abdomen/Pelvis without Cont IMPRESSION: Nonobstructive stone within the left kidney measuring 5 mm. Remainder of abdominal viscera are unremarkable. No acute appendicitis or bowel obstruction. Electronically Signed: Verenicejusta Greertramaine, at 21:40 EDT ,
--- NOTE | 2023-04-28 20:33 | ED.VIS.GI ---
HPI HPI - GI History of Present Illness Chief Complaint: Abd Pain Informant: patient Narrative Narrative: Patient presents with abdominal and flank pain. Patient states she was driving home and started to get some pain in the epigastric area. It seemed to be more on the right than the left. She now states the pain is there and a little bit on her right side. The pain waxes and wanes but never goes away. She gets nausea but no vomiting. No change in bowel habits. She is denying urinary symptoms now. However, she states she was at urgent care about 3 or 4 days ago. She was having pain in her pelvic area every time she urinated. Urine was checked and it was negative for infection. She then thought this was likely an ovarian cyst because she has had those before. That pain is better though. It still there but much better. Patient has never had kidney stone. She has never had cholecystectomy or biliary disease. Only abdominal surgery was ovarian cyst and a right tubal ligation done for ectopic. Of note, chart states she has an allergy to Demerol. She states this is not a true allergy she just does not like how she feels. She states she does have some intolerance of Dilaudid. I was going to get her medicine then I noticed that listed anaphylaxis. She denies this. She states she has never had anaphylaxis to anything. She never had trouble breathing or swelling or even a rash. She has had Percocet and hydrocodone and other pain meds without difficulty. I will treat her with fentanyl. [facility] Medical History Anxiety Hypertension Ovarian cyst Home Medications memantine 10 mg tablet 10 mg PO DAILY 04/11/20 [History Last Taken Unknown] omeprazole 20 mg capsule,delayed release 20 mg PO DAILY 04/11/20 [History Last Taken Unknown] trazodone 50 mg tablet 50 mg PO QHS 04/11/20 [History Last Taken Unknown] buspirone 10 mg tablet 10 mg PO BID 05/27/22 [History Last Taken Unknown] hydrochlorothiazide 12.5 mg capsule 12.5 mg PO DAILY 05/27/22 [History Last Taken Unknown] metoprolol succinate 25 mg tablet,extended release 24 hr 25 mg PO DAILY 05/27/22 [History Last Taken Unknown] ibuprofen 600 mg tablet 600 mg PO Q8H PRN PRN pain #20 TABLETS 01/21/23 [Rx Last Taken Unknown] ondansetron 4 mg disintegrating tablet 4 mg PO Q8H PRN PRN Nausea #10 tabs 04/28/23 [Rx Last Taken Unknown] oxycodone-acetaminophen 5 mg-325 mg tablet 1 tab PO Q6H PRN PRN Pain 3 days #12 TABLETS 04/28/23 [Rx Last Taken Unknown] Allergy/AdvReac Type Severity Reaction Status Date / Time hydromorphone HCl Allergy Severe Anaphylaxis Verified 04/28/23 20:03 [From Dilaudid] meperidine HCl [From Demerol] AdvReac PT STATES Verified 04/28/23 20:03 DOES NOT LIKE THE WAY IT MAKES HER FEEL Surgical History History of salpingectomy Hx of ovarian cystectomy Hx of tonsillectomy Social History Smoking Status: Former smoker ROS ROS ED ROS Narrative A complete review of systems was performed and is negative except as documented in the history of present illness. Some specific details below. Constitutional: No recent fevers or chills. She overall feels good except for the above complaints. EYE: No visual complaints or pain. No change in eye color. ENT: No difficulty swallowing. No swelling. No pain. CV: No chest pain or palpitations. Respiratory: No dyspnea. No hemoptysis. No difficulty taking breaths. GI: Please see history of present illness. : See history of present illness. No hematuria noted. Musculoskeletal: No recent trauma. No pains other than the right flank slightly in the back area. Skin: No rash. Nondiaphoretic. Neuro: No weakness or numbness. Endocrine: No polyuria or polydipsia. EXAM Physical Exam Narrative Exam Narrative: CONSTITUTIONAL: Patient does not look a little bit uncomfortable. She is kind of moving a little bit and holding her right side. HEENT: No notable trauma. Mucous membranes moist. No sinus tenderness. No indication of pain with swallowing. EYES: No conjunctival injection. No proptosis. CARDIOVASCULAR: Regular rate. Regular rhythm. No notable murmur. No JVD. RESPIRATORY: No respiratory distress. Breathing is unlabored. No wheezes. No rhonchi. No rales. No pain with a deep breath. GASTROINTESTINAL: Obese but does not appear to be distended. Bowel sounds are normal. She does have a little bit of epigastric and more right upper quadrant tenderness. But she also has some right CVA area tenderness. No rashes seen. No mass. The left side of her abdomen and lower abdomen are completely benign and do not even referred pain when I palpate the area. GENITOURINARY: No tenderness over the bladder. No notable CVA tenderness. MUSCULOSKELETAL: Atraumatic. No peripheral edema. No cord. No tenderness along the deep venous system. No asymmetry. NEUROLOGICAL: Patient is alert and appropriate. No focal deficit noted. SKIN: No noted rashes. No diaphoresis. PSYCHIATRIC: Patient is calm. Mood is appropriate. Const Vital Signs: 04/28/23 20:02 Temperature 96 F L Temperature Source Temporal Pulse Rate 88 Respiratory Rate 18 Blood Pressure 133/86 H Blood Pressure Mean 101 Pulse Ox 97 Oxygen Delivery Method Room Air MDM MDM MDM Narrative Medical decision making narrative: Patient CBC does show mild elevation of the white count hemoglobin. Platelets are normal. Patient's electrolytes are normal including glucose. No sign of acute kidney injury. Patient's liver function test are normal. Patient's lipase is normal. Patient's serum is negative. Patient's urine shows no significant signs of infection. My independent interpretation of her CT scan of the abdomen does not show any acute process. Final reading shows normal gallbladder. There is a kidney stone left but no obstruction. But she has no symptoms over there. Patient's recheck. There are times she feels good in time she is cramping. She has mild tenderness in right upper quadrant. But she is doing better. We will get her second dose of pain meds. When I saw her the second time the second dose of meds been ordered but not given. I will give her some Toradol also. I think this is likely biliary colic. She states she has had an ovarian cyst that they see on CAT scan. She has had that for a long time. She is not really having much pain down there although. Her pain is up higher. She does have a sister who had a gallbladder removal at somewhere in her young 20s. I explained that without fever recurrent vomiting signs of inflammation we should be able to treat this as an outpatient. Certainly if she develops worsening symptoms she may need to come back. But we would like to try to get this to calm down. I will give her number of surgeon for follow-up. We discussed reasons to return. Lab Data Attestation: I reviewed the patient's lab results. Labs: Laboratory Results - last 24 hr 04/28/23 04/28/23 20:50 21:06 WBC 15.7 H RBC 5.19 Hgb 15.4 H Hct 46.1 MCV 88.8 MCH 29.7 MCHC 33.4 RDW Std Deviation 40.7 RDW Coeff of Michel 12.5 Plt Count 331 MPV 9.2 Immature Gran % (Auto) 0.400 Neut % (Auto) 68.3 Lymph % (Auto) 24.4 [place] % (Auto) 6.0 Eos % (Auto) 0.5 Baso % (Auto) 0.4 Absolute Neuts (auto) 10.7 H Absolute Lymphs (auto) 3.83 Nucleated RBC % 0 Sodium 137 Potassium 3.5 Chloride 105 Carbon Dioxide 23.0 Anion Gap 9 BUN 16 Creatinine 0.87 Estim Creat Clear Calc 82.39 Est GFR (MDRD) Af Amer 99 Est GFR (MDRD) Non-Af 82 BUN/Creatinine Ratio 18.4 Glucose 87 Calcium 9.1 Total Bilirubin 0.40 AST 14 L ALT 33 Alkaline Phosphatase 70 Total Protein 7.3 Albumin 3.9 Globulin 3.4 Albumin/Globulin Ratio 1.1 Lipase 40 Serum , Qual NEGATIVE Urine Color Yellow Urine Clarity Sl. Cloudy Urine pH 5.0 Ur Specific Moffit 1.025 Urine Protein Negative Urine Glucose (UA) Normal Urine Ketones 5 H Urine Occult Blood 10 H Urine Nitrite Negative Urine Bilirubin Negative Urine Urobilinogen Normal Ur Leukocyte Esterase 25 H Urine RBC 0-5 SEEN Urine WBC 0-5 SEEN Ur Squamous Epith Cells 0-5 SEEN Urine Bacteria RARE Urine Mucus 0 SEEN Radiography Diagnostic Testing: Clinical Impression(s) from Imaging Studies Abdomen/Pelvis CT 04/28/23 20:30 IMPRESSION: Nonobstructive stone within the left kidney measuring 5 mm. Remainder of abdominal viscera are unremarkable. No acute appendicitis or bowel obstruction. Electronically Signed: Verenice Dickens, at 21:40 EDT , Discharge Plan Triage Chief Complaint: Abd Pain ED Provider: Joe Samuel Dx/Rx/DC Orders Clinical Impression: Abdominal pain, Nausea, Biliary colic Instructions: ED Pain, Acute, Uncertain Cause Prescriptions: New oxycodone-acetaminophen [oxycodone-acetaminophen] 5-325 mg tablet 1 tab PO Q6H PRN PRN (Reason: Pain) 3 Days Qty: 12 0RF ondansetron [ondansetron] 4 mg tablet,disintegrating 4 mg PO Q8H PRN PRN (Reason: Nausea) Qty: 10 0RF No Action trazodone 50 MG tablet 50 mg PO QHS omeprazole 20 MG capsule,delayed release(DR/EC) 20 mg PO DAILY memantine 10 MG tablet 10 mg PO DAILY buspirone 10 mg tablet 10 mg PO BID Patient Comments: TAKE 1 TABLET BY MOUTH TWICE DAILY hydrochlorothiazide 12.5 mg capsule 12.5 mg PO DAILY Patient Comments: TAKE 1 CAPSULE BY MOUTH ONCE DAILY metoprolol succinate 25 mg tablet extended release 24 hr 25 mg PO DAILY Patient Comments: TAKE 1 TABLET BY MOUTH ONCE DAILY ibuprofen 600 mg tablet 600 mg PO Q8H PRN PRN (Reason: pain) Qty: 20 0RF Primary Care Provider: Carlos Zavala Referrals: Kd Cardona MD [Med Staff - Active Staff] - As soon as possible Carlos Zavala MD [Primary Care Provider] - 3-5 Days Disposition Disposition: Home, Self Care
[2023-04-28 21:01] LABS: Absolute Lymphocyte Count 3.83 X10^3/uL (0.83-4.51); Absolute Neutrophil Count 10.7 X10^3/uL (2.0-7.7); Basophil# 0.06 X10^3/uL; Basophil% 0.4 % (0-1); Eosinophil# 0.08 X10^3/uL; Eosinophils% 0.5 % (0-5); Hematocrit 46.1 % (37-47); Hemoglobin 15.4 g/dL (12.0-15.0); Lymphocyte # 3.83 X10^3/ul (0.83-4.51); Lymphocyte % 24.4 % (19-41); Mean Corp Hgb Conc 33.4 g/dL (32-36); Mean Corpuscular Hgb 29.7 pg (27.0-32.0); Mean Corpuscular Volume 88.8 fL (81-99); Mean Platelet Vol. 9.2 fl (6.2-12.0); Monocyte# 0.94 X10^3/uL; NRBC Flagged by Analyzer 0 % (0-5); Neutrophil # 10.73 X10^3/uL (2.7-7.7); Neutrophil % 68.3 % (47-70); Platelet Count 331 K/mm3 (150-450); RBC Distribution Width CV 12.5 % (11.6-14.6); RBC Distribution Width SD 40.7 fl (35.1-43.9); Red Blood Count 5.19 M/mm3 (4.2-5.4); White Blood Count 15.7 K/mm3 (4.4-11.0)
[2023-04-28] MEDS: 0.9% Normal Saline 1,000 ML 1000 ML IV (21:02)
[2023-04-28] MEDS: Ondansetron 4 MG/2 ML Vial IV (21:03)
[2023-04-28] MEDS: fentaNYL 100 MCG/2 ML Ampul 25 MCG IV ×2 (21:03→21:51)
[2023-04-28 21:11] LABS: Mucous, Urine 0 SEEN /hpf (<or=2+)
[2023-04-28 21:16] LABS: Internal QC Validated? YES +Cl - CLEAR BKGD; Pregnancy, Serum, hCG Quali. NEGATIVE Negative
[2023-04-28 21:18] LABS: ALB/GLOB Ratio 1.1 RATIO (0.9-2.4); AST(SGOT) 14 U/L (15-37); Alanine Aminotransfer ALT/SGPT 33 U/L (13-56); Albumin, Serum 3.9 g/dL (3.2-5.0); Alkaline Phosphatase 70 U/L (45-117); Anion Gap 9 (5-15); BUN 16 mg/dL (7-18); BUN/Creat Ratio 18.4 RATIO (10-20); Calcium,Total 9.1 mg/dL (8.5-10.1); Chloride 105 mmol/L (98-107); Creatinine, Serum 0.87 mg/dL (0.55-1.02); EST Glomerular Filtration Rate 82 mL/min (>60); Est Glom Filt Rate - Afr Amer 99 mL/min (>60); Estimated Creatinine Clearance 82.39 ml/min; Globulin 3.4 g/dL (2.2-4.2); Glucose 87 mg/dL (74-106); Lipase 40 U/L (13-75); Potassium 3.5 mmol/L (3.5-5.1); Protein, Total 7.3 g/dL (6.4-8.2); Sodium Level 137 mmol/L (136-145)
[2023-04-28 21:20] LABS: Color, Urine Yellow (Yellow); Glucose, Dipstick Normal (Normal); Ketone-Dipstick 5 mg/dl (Negative); Leukocyte Esterase-Dipstick 25 /ul (Negative); Nitrite-Dipstick Negative (Negative); Occult Blood-Urine 10 /ul (Negative); Protein-Dipstick Negative (Negative); Specific Gravity, Urine 1.025 (1.002-1.030); Urine Bilirubin Dipstick Negative (Negative); Urine Clarity Sl. Cloudy (Clear); Urine Urobilinogen Normal (Normal)
[2023-04-28 21:34] LABS: Red Blood Cells-Urine 0-5 SEEN /hpf (0-5); Squamous Epithelial Cells - UA 0-5 SEEN /hpf (5-10); White Blood Cells 0-5 SEEN /hpf (0-5)
[2023-04-28 21:35] LABS: Bacteria RARE /hpf (None Seen)
[2023-04-28] MEDS: Ketorolac 15 MG/ML Vial IV (22:22)
== END 2023-04-28 22:43 | disposition home or self-care (01) ==
PROVIDERS: Emergency Provider Emergency Medicine; PCP Family Medicine; Visit Provider Emergency Medicine
DX: K80.50 Calculus of bile duct without cholangitis or cholecystitis without obstruction (principal); Z87.891 Personal history of nicotine dependence; I10 Essential (primary) hypertension; F41.9 Anxiety disorder, unspecified; Z90.6 Acquired absence of other parts of urinary tract; R11.0 Nausea; R10.9 Unspecified abdominal pain
CPT/HCPCS: 74176; 80053; 81001; 83690; 84703; 85025; 99283; J7030; A4216; J2405

== ENCOUNTER 2023-07-01 07:23 | Emergency (ER) | payer SELFPAY ==
[2023-07-01 07:24] VITALS: BP 144/98; PULSE 62; RESP 14; TEMP 36.4; O2SAT 98; BMI 45.3
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
== END 2023-07-01 09:01 | disposition home or self-care (01) ==
PROVIDERS: Emergency Provider Emergency Medicine; PCP Family Medicine; Visit Provider Emergency Medicine
DX: S40.011A Contusion of right shoulder, initial encounter (principal); I10 Essential (primary) hypertension; S20.20XA Contusion of thorax, unspecified, initial encounter; Z87.891 Personal history of nicotine dependence; F41.9 Anxiety disorder, unspecified; Z79.899 Other long term (current) drug therapy; V48.5XXA Car driver injured in noncollision transport accident in traffic accident, initial encounter; Y92.410 Unspecified street and highway as the place of occurrence of the external cause
CPT/HCPCS: 71046; 73030; 99282

== ENCOUNTER 2023-08-29 09:15 | Emergency (ER) | payer SELFPAY ==
[2023-08-29 09:16] VITALS: BP 134/83; PULSE 85; RESP 16; TEMP 35.8; O2SAT 96; BMI 45.4
--- OUTSIDE RECORDS SUMMARY | 2023-08-29 09:42 | XMS RPT_ITS | CCD ---
Author Name Unknown Address [id number] [place] [address] Organization [facility] Care Team Providers Care Department Supervisor Name Role Phone REMINGTON ASKEW MD Admitting Unavailable REMINGTON ASKEW MD Primary Care Unavailable REMINGTON ASKEW MD Attending Unavailable CARLOS OQUENDO Consulting Unavailable CARLOS OQUENDO Referring Unavailable PROVIDER, UNKNOWN Consulting Unavailable DESIRAE, DR KEREN Yip Attending Unavaila LOLLY Murphy DO Consulting Unavailable LOLLY HYLTON DO Referring Unavailable DESIRAE, DR KEREN Yip Admitting Unavaila ble DESIRAE, DR KEREN Yip Primary Care Unavaila ble PROVIDER, UNKNOWN Consulting Unavailable FRANCI BAY MD Admitting Unavailable FRANCI BAY MD Primary Care Unavailable FRANCI BAY MD Attending Unavailable LOLLY HYLTON DO Consulting Unavailable LOLLY HYLTON DO Referring Unavailable PROVIDER, UNKNOWN Consulting Unavailable Carlos Oquendo MD Primary Care Provider CHELSEA JACQUES MD Attending Unavailable CARLOS OQUENDO MD Consulting Unavailable CARLOS OQUENDO MD Referring Unavailable CHELSEA JACQUES MD Admitting Unavailable CHELSEA JACQUES MD Primary Care Unavailable PROVIDER, UNKNOWN Consulting Unavailable LOLLY MILLER DO Admitting Unavailable LOLLY MILLER DO Primary Care Unavailable LOLLY MILLER DO Attending Unavailable RENITA LOPEZ DO Admitting Unavailable RENITA LOPEZ DO Primary Care Unavailable RENITA LOPEZ DO Attending Unavailable CARLOS OQUENDO MD Consulting Unavailable CARLOS OQUENDO MD Referring Unavailable PROVIDER, UNKNOWN Consulting Unavailable ENRRIQUE LOPEZ Admitting Unavailable ENRRIQUE LOPEZ Primary Care Unavailable ENRRIQUE LOPEZ Attending Unavailable CARLOS OQUENDO MD Consulting Unavailable CARLOS OQUENDO MD Referring Unavailable PROVIDER, UNKNOWN Consulting Unavailable Carlos Oquendo MD Primary Care Provider Carlos Oquendo MD Primary Care Provider DESIRAE ST MD Primary Care Physician CAROL GIRON Referring Unavailable AZRA, CARLOS A Primary Care Unavailable CARLTON CHAMBERS Attending Unavailable MACIEL LAI, DESIRAE Melton Primary Care Unavailable DESIRAE ST MD Primary Care Unavailable REID DO, DR DAIN Pulido Consulting Unavailable REID DO, DR DAIN Pulido Admitting Unavailable REID DO, DR DAIN Pulido Attending Unavailable AZRA, CARLOS A Referring Unavailable AZRA, CARLOS A Primary Care Unavailable AZRA, CARLOS A Referring Unavailable AZRA, CARLOS A Primary Care Unavailable AZRACARLOS GIL A Attending Unavailable AZRA, CARLOS A Primary Care Unavailable AZRA, CARLOS A Primary Care Unavailable AZRA, CARLOS A Primary Care Unavailable ISIAH MICHAEL Attending Unavailable AZRA, CARLOS A Primary Care Unavailable MERVIN MATHIS Attending Unavailable KORY PANG Referring Unavailable AZRA, CARLOS A Primary Care Unavailable CAROL GIRON Attending Unavailable AZRA, CARLOS A Primary Care Unavailable AZRA, CARLOS A Primary Care Unavailable VIRAJ JONES Attending Unavailable AZRA, CARLOS A Primary Care Unavailable YANELI MAS Attending Unavailable Allergies Allergy Classification Reported Allergen(s) Allergy Type Date of Onset Reaction(s) Facility (3 sources) HYDROmorphone Drug Allergy [facility] Repository (3 sources) Meperidine Drug Allergy [facility] Repository (20 sources) HYDROmorphone; Translations: [HYDROMORPHONE (BULK)] Drug Allergy 5 Shortness of Breath [facility] Work Phone: (20 sources) Meperidine; Translations: [meperidine] Drug Allergy 7 Mental Status Change, Other: See Comments [facility] Work Phone: (19 sources) topiramate; Translations: [TOPIRAMATE] Drug Allergy 2 Other: See Comments [facility] (6 sources) HYDROmorphone; Translations: [hydromorphone] Drug Allergy 5 Anaphylaxis, Shortness of Breath [facility] Medications Current Medications Medication Drug Class(es) Dates Sig (Normalized) Sig (Original) busPIRone (19 sources) Start: 09-14-2022 Buspar use busPIRone Oral, qDay, 0 Refill(s) Start Date: 09/14/22 Status: Ordered Completed/Discontinued Medications Medication Drug Class(es) Dates Sig (Normalized) Sig (Original) 24 hr desvenlafaxine succinate 25 mg extended release oral tablet (10 sources) Serotonin and Norepinephrine Reuptake Inhibitor Start: 11-06-2022 take 1 tablet by mouth once daily, then take 1 tablet by mouth every twenty-four hours desvenlafaxine ER (PRISTIQ) 25 mg 24 hr tablet Take 25 mg by mouth once daily. 0 11/06/2022 Active Problems Active Problems Problem Classification Problem Date Documented Date Episodic/Chronic Anxiety disorders (19 sources) Mixed anxiety and depressive disorder; Translations: [Anxiety disorder, unspecified] Onset: 03-04-2017 01-14-2021 Chronic Bacterial infection; unspecified site (1 source) Other specified bacterial agents as the cause of diseases classified elsewhere; Translations: [Bacterial sinusitis] Onset: 08-27-2023 Episodic Disorders of lipid metabolism (20 sources) Dyslipidemia; Translations: [Hyperlipidemia, unspecified] Onset: 12-03-2018 12-03-2018 Chronic Esophageal disorders (19 sources) Gastroesophageal reflux disease without esophagitis; Translations: [Gastro-esophageal reflux disease without esophagitis] Onset: 02-07-2020 02-07-2020 Chronic Essential hypertension (20 sources) Essential hypertension; Translations: [Essential (primary) hypertension] Onset: 11-15-2018 12-03-2018 Chronic Immunizations and screening for infectious disease (1 source) Contact with or exposure to other viral diseases; Translations: [Exposure to 2019 novel coronavirus] Episodic Miscellaneous mental health disorders (1 source) Psychological and behavioral factors associated with disorders or diseases classified elsewhere; Translations: [Psychological factors affecting morbid obesity] Onset: 05-20-2023 Chronic Other connective tissue disease (2 sources) Finding of sternum structure; Translations: [Other symptoms and signs involving the musculoskeletal system] Episodic Other connective tissue disease (1 source) Other symptoms and signs involving the musculoskeletal system; Translations: [Xiphoid prominence] Onset: 01-29-2023 Episodic Other liver diseases (18 sources) Lesion of liver; Translations: [Liver disease, unspecified] Onset: 03-04-2017 06-08-2017 Chronic Other lower respiratory disease (1 source) Snoring; Translations: [Snoring] Episodic Other non-traumatic joint disorders (1 source) Pain in elbow; Translations: [Pain in right elbow] Episodic Other non-traumatic joint disorders (1 source) Shoulder pain; Translations: [Pain in right shoulder] Episodic Other nutritional; endocrine; and metabolic disorders (19 sources) Morbid obesity; Translations: [Morbid (severe) obesity due to excess calories] Onset: 06-08-2017 2020 Chronic Other nutritional; endocrine; and metabolic disorders (19 sources) Body mass index 40+ - severely obese; Translations: [Morbid (severe) obesity due to excess calories] Onset: 03-19-2020 01-14-2021 Chronic Other nutritional; endocrine; and metabolic disorders (1 source) Psychosomatic factor in physical condition; Translations: [Morbid (severe) obesity due to excess calories] 04-17-2023 Chronic Other nutritional; endocrine; and metabolic disorders (3 sources) Morbid (severe) obesity due to excess calories; Translations: [Psychological factors affecting morbid obesity] Onset: 08-01-2020 Chronic Other skin disorders (2 sources) Mass of chest wall; Translations: [Localized swelling, mass and lump, trunk] Episodic Other skin disorders (1 source) Localized swelling, mass and lump, trunk; Translations: [Chest wall mass] Onset: 01-29-2023 Episodic Other upper respiratory infections (1 source) Chronic sinusitis, unspecified; Translations: [Bacterial sinusitis] Onset: 08-27-2023 Chronic Ovarian cyst (1 source) Cyst of ovary; Translations: [Unspecified ovarian cyst, unspecified side] Onset: 09-14-2022 Episodic Residual codes; unclassified (1 source) Hypersomnia; Translations: [Hypersomnia, unspecified] Chronic Residual codes; unclassified (7 sources) Obstructive sleep apnea syndrome; Translations: [Obstructive sleep apnea (adult) (pediatric)] Onset: 01-28-2023 01-28-2023 Chronic Residual codes; unclassified (1 source) Hypersomnia, unspecified; Translations: [Hypersomnolence] Onset: 01-08-2023 Chronic Residual codes; unclassified (3 sources) Procedure and treatment not carried out due to patient leaving prior to being seen by health care provider; Translations: [Procedure and treatment not carried out due to patient leaving prior to being seen by health care provider] Onset: 02-19-2022 Episodic Unclassified (1 source) Cough, unspecified; Translations: [Cough, unspecified] Onset: 11-15-2021 Past or Other Problems Problem Classification Problem Date Documented Da te Episodic/Chronic Genitourinary symptoms and ill-defined conditions (3 sources) Urgent desire to urinate; Translations: [Urgency of urination] Onset: 04-25-2023 Episodic Headache; including migraine (19 sources) Headache; Translations: [Headache, unspecified headache type] Onset: 06-08-2017 01-14-2021 Episodic Malaise and fatigue (1 source) Other fatigue; Translations: [Lethargic infant] Onset: 02-04-2023 Episodic Other aftercare (20 sources) Patient encounter status; Translations: [Other half-way (current) drug therapy] Onset: 01-14-2021 01-14-2021 Episodic Other aftercare (1 source) Other half-way (current) drug therapy; Translations: [On angiotensin receptor blockers (ARB)] Onset: 02-04-2023 Episodic Other and unspecified benign neoplasm (18 sources) Dysplastic nevus of skin; Translations: [Melanocytic nevi, unspecified] Onset: 2021 09-16-2021 Episodic Other and unspecified benign neoplasm (5 sources) Lipoma of trunk; Translations: [Benign lipomatous neoplasm of skin and subcutaneous tissue of trunk] Onset: 02-03-2023 02-03-2023 Episodic Other lower respiratory disease (1 source) Snoring; Translations: [Snores] Onset: 01-08-2023 Episodic Other non-traumatic joint disorders (18 sources) Pain in right knee; Translations: [Pain in joint, lower leg] Onset: 01-02-2020 01-02-2020 Episodic Other screening for suspected conditions (not mental disorders or infectious disease) (1 source) Encounter for screening for diabetes mellitus; Translations: [Encounter for screening for diabetes mellitus] Onset: 01-14-2021 Episodic Other upper respiratory disease (18 sources) Mucocele of maxillary sinus; Translations: [Cyst and mucocele of nose and nasal sinus] Onset: 06-17-2017 01-07-2019 Episodic Pneumonia (except that caused by tuberculosis or sexually transmitted disease) (1 source) Pneumonia, unspecified organism; Translations: [Pneumonia, unspecified organism] Onset: 11-15-2021 Episodic Residual codes; unclassified (18 sources) Family history of neoplasm of brain; Translations: [Family history of other specified conditions] Onset: 06-08-2017 06-08-2017 Episodic Screening and history of mental health and substance abuse codes (18 sources) Ex-smoker; Translations: [Personal history of nicotine dependence] Onset: 2021 2021 Episodic Unclassified (1 source) Cough, unspecified; Translations: [Cough, unspecified] Onset: 11-15-2021 Viral infection (18 sources) Condyloma acuminatum of the anogenital region; Translations: [Anogenital (venereal) warts] Onset: 12-21-2014 12-26-2019 Episodic Results Test Name Value Interpretation Reference Range Facil ity Vital Signs Date Time Vital Sign Value Performing Clinician Rli maciejy 04-25-2023 10:25-0400 Body temperature 97.7 [degF] Viraj Jones MD Work Phone: [facility] 04-25-2023 10:25-0400 Body weight 127.01 kg Viraj Jones MD Work Phone: [facility] 04-25-2023 10:25-0400 Diastolic blood pressure 86 mm[Hg] Viraj Jones MD Work Phone: [facility] 04-25-2023 10:25-0400 Heart rate 60 /min Viraj Jones MD Work Phone: [facility] 04-25-2023 10:25-0400 Respiratory rate 18 /min Viraj Jones MD Work Phone: [facility] 04-25-2023 10:25-0400 SaO2% (BldA) [Mass fraction] 96 % Viraj Jones MD Work Phone: [facility] 04-25-2023 10:25-0400 Systolic blood pressure 128 mm[Hg] Viraj Jones MD Work Phone: [facility] 01-27-2023 11:33-0400 Body temperature 99.1 [degF] Carol Giron PA-C Work Phone: [facility] 01-27-2023 11:33-0400 Body weight 127.01 kg Carol Giron PA-C Work Phone: [facility] 01-27-2023 11:33-0400 Diastolic blood pressure 82 mm[Hg] Carol Giron PA-C Work Phone: [facility] 01-27-2023 11:33-0400 Heart rate 90 /min Carol Giron PA-C Work Phone: [facility] 01-27-2023 11:33-0400 Respiratory rate 18 /min Carol Giron PA-C Work Phone: [facility] 01-27-2023 11:33-0400 Systolic blood pressure 130 mm[Hg] Carol Giron PA-C Work Phone: [facility] 12-26-2022 08:10-0400 Body weight 127.91 kg Carlos Oquendo MD Work Phone: [facility] 12-26-2022 08:10-0400 Diastolic blood pressure 98 mm[Hg] Carlos Oquendo MD Work Phone: [facility] 12-26-2022 08:10-0400 Heart rate 84 /min Carlos Oquendo MD Work Phone: [facility] 12-26-2022 08:10-0400 Respiratory rate 18 /min Carlos Oquendo MD Work Phone: [facility] 12-26-2022 08:10-0400 Systolic blood pressure 142 mm[Hg] Carlos Oquendo MD Work Phone: [facility] 09-14-2022 16:22-0500 Body temperature 97.52 [degF] DR DAIN REID DO [facility] 09-14-2022 16:22-0500 Diastolic Blood Pressure Non-Invasive [address] DAIN REID DO [facility] 09-14-2022 16:22-0500 Heart rate 64 /min DR DAIN REID DO [facility] 09-14-2022 16:22-0500 Reason For Taking VItal Signs DR DAIN REID DO [facility] 09-14-2022 16:22-0500 Respiratory rate 16 /min DR DAIN REID DO [facility] 09-14-2022 16:22-0500 Systolic Blood Pressure Non-Invasive [address] DAIN REID DO [address] [place] [address] 09-14-2022 13:44-0500 Diastolic Blood Pressure Non-Invasive [address] DAIN REDI DO [facility] 09-14-2022 13:44-0500 Systolic Blood Pressure Non-Invasive [address] DAIN REID DO [facility] 09-14-2022 09:01-0500 Body temperature 97.34 [degF] DR DAIN REID DO [facility] 09-14-2022 09:01-0500 Diastolic Blood Pressure Non-Invasive [address] DAIN REID DO [facility] 09-14-2022 09:01-0500 Heart rate 75 /min DR DAIN REID DO [facility] 09-14-2022 09:01-0500 Reason For Taking VItal Signs DR DAIN REID DO [facility] 09-14-2022 09:01-0500 Respiratory rate 16 /min DR DAIN REID DO [facility] 09-14-2022 09:01-0500 Systolic Blood Pressure Non-Invasive [address] DAIN REID DO [facility] 09-14-2022 02:20-0500 Body temperature 98.06 [degF] DR DAIN REID DO [facility] 09-14-2022 02:20-0500 Heart rate 65 /min DR DAIN REID DO [facility] 09-14-2022 02:20-0500 Reason For Taking VItal Signs DR DAIN REID DO [facility] 09-14-2022 02:20-0500 Respiratory rate 16 /min DR DAIN REID DO [facility] 09-14-2022 02:16-0500 Body height 162.[address] DAIN REID DO [facility] 09-14-2022 02:16-0500 Body weight 122.[address] DAIN REID DO [facility] 09-14-2022 02:16-0500 Body weight 46.41 kg/m2 DR DAIN REID DO [facility] 09-13-2022 12:55-0500 Body temperature 98.06 [degF] DR DAIN REID DO [facility] 09-13-2022 12:55-0500 Body weight 122.[address] DAIN REID DO [facility] 09-11-2022 10:05-0500 Body temperature 98.01 [degF] Bernadine Hanson APRN.BINDERY CUTTER OPERATOR Work Phone: [facility] 09-11-2022 10:05-0500 Body weight 134.45 kg Bernadine Hanson APRN.BINDERY CUTTER OPERATOR Work Phone: [facility] 09-11-2022 10:05-0500 Diastolic blood pressure 90 mm[Hg] Bernadine Hanson APRN.BINDERY CUTTER OPERATOR Work Phone: [facility] 09-11-2022 10:05-0500 Heart rate 93 /min Bernadine Hanson APRN.BINDERY CUTTER OPERATOR Work Phone: [facility] 09-11-2022 10:05-0500 Respiratory rate 16 /min Bernadine Hanson [employer]IVER.BINDERY CUTTER OPERATOR Work Phone: [facility] 09-11-2022 10:05-0500 SaO2% (BldA) [Mass fraction] 99 % Bernadine Hanson [employer]IVER.BINDERY CUTTER OPERATOR Work Phone: [facility] 09-11-2022 10:05-0500 Systolic blood pressure 124 mm[Hg] Bernadine Hanson [employer] DRIVER.BINDERY CUTTER OPERATOR Work Phone: [facility] 07-22-2022 16:46-0500 Body temperature 97.81 [degF] Jerry Galdino [employer]IVER.BINDERY CUTTER OPERATOR Work Phone: [facility] 07-22-2022 16:46-0500 Body weight 136.53 kg Jerry Ahmadi [employer] DRIVER.BINDERY CUTTER OPERATOR Work Phone: [facility] 07-22-2022 16:46-0500 Diastolic blood pressure 72 mm[Hg] Jerry Galdino [employer] DRIVER.BINDERY CUTTER OPERATOR Work Phone: [facility] 07-22-2022 16:46-0500 Heart rate 76 /min Jerry Galdino [employer] T[employer] DRIVER.BINDERY CUTTER OPERATOR Work Phone: [facility] 07-22-2022 16:46-0500 Respiratory rate 16 /min Jerry Galdino [employer] T[employer] DRIVER.BINDERY CUTTER OPERATOR Work Phone: [facility] 07-22-2022 16:46-0500 SaO2% (BldA) [Mass fraction] 96 % Jerry Galdino [employer] DRIVER.BINDERY CUTTER OPERATOR Work Phone: [facility] 07-22-2022 16:46-0500 Systolic blood pressure 122 mm[Hg] Jerry Galdino [employer] T[employer] DRIVER.BINDERY CUTTER OPERATOR Work Phone: [facility] 05-22-2022 12:24-0400 Body temperature 97.81 [degF] Melvi Novoa [employer] T[employer] DRIVER.BINDERY CUTTER OPERATOR Work Phone: [facility] 05-22-2022 12:24-0400 Diastolic blood pressure 90 mm[Hg] Melvi Novoa [employer] T[employer]ER DRIVER.BINDERY CUTTER OPERATOR Work Phone: [facility] 05-22-2022 12:24-0400 Heart rate 85 /min Melvi Novoa APRN.BINDERY CUTTER OPERATOR Work Phone: [facility] 05-22-2022 12:24-0400 Respiratory rate 18 /min Melvi Novoa APRN.BINDERY CUTTER OPERATOR Work Phone: [facility] 05-22-2022 12:24-0400 SaO2% (BldA) [Mass fraction] 98 % Melvi Novoa APRN.BINDERY CUTTER OPERATOR Work Phone: [facility] 05-22-2022 12:24-0400 Systolic blood pressure 148 mm[Hg] Melvi Novoa APRN.BINDERY CUTTER OPERATOR Work Phone: [facility] Encounters Encounter Date Encounter Type Care Provider Facility Start: 08-27-2023 End: 08-28-2023 ambulatory CARLOS OQUENDO Facility:[id number] Start: 08-17-2023 Refill Carlos gil MD Work Phone: [facility] Procedures Date Procedure Procedure Detail Performing Clinician Start: 04-25-2023 Urnls dip stick/tabl et rgnt auto w/o microscopy Viraj Jones MD Work Phone: Start: 07-22-2022 Radex elbow complete minimum 3 views Jerry Ahmadi APRN.BINDERY CUTTER OPERATOR Work Phone: Start: 05-22-2022 Urnls dip stick/tabl et rgnt auto w/o microscopy Kt Bishop MD Work Phone: Plan of Treatment Date Care Activity Detail Author Start: 2031 Urine microalbumin profile [facility] Start: 01-28-2024 ANNUAL PCP TEAM CHRONIC DISEASE VISIT ANNUAL PCP TEAM CHRONIC DISEASE VISIT [facility] Start: 12-27-2023 ANNUAL PCP TEAM CHRONIC DISEASE VISIT ANNUAL PCP TEAM CHRONIC DISEASE VISIT [facility] Start: 2023 Screening for malignant neoplasm of cervix HPV Testing [facility] Start: 07-22-2023 BP CONTROLLED (<130/80) BP CONTROLLED (<130/80) [facility] Start: 12-26-2022 End: 06-28-2023 Comprehensive metabolic 2000 panel - Serum or Plasma [facility] Work Phone: Immunizations Immunization Date Immunization Notes Care Provider Fa cility 2021 tetanus toxoid, redu ibrahima diphtheria toxoid, and acellular pertussis vaccine, adsorbed Carlos Oquendo MD Work Phone: [facility] Payers Date Payer Category Payer Unknown [id number] 2014 Medicaid [facility] [id number] 2014-Present [phone] [address] [place] [address] Medicaid [id number] 2014 Medicaid [id number] 2014 Unknown [id number] 1993 Unknown [id number] 1993 Unknown [id number] 1993 Unknown [id number] 1993 Unknown [id number] 1993 Unknown [id number] 1993 Unknown [id number] 1993 Unknown [id number] 1993 Unknown [id number] 1993 Unknown [id number] Social History Date Type Detail Facility Start: 03-17-2018 End: 04-25-2023 Tobacco smoking status NHIS Ex-smoker [facility] Start: 03-17-2018 End: 04-25-2023 Tobacco use and exposure Smokeless tobacco non-user [facility] Start: 01-28-2021 End: 05-20-2023 Alcohol intake Current non-drinker of alcohol (finding) [facility] Start: 2021 History SDOH Alcohol Frequency 1 [facility] Start: 2021 History SDOH Alcohol Std Drinks 98 [facility] Start: 2021 History SDOH Social Connections Phone 3 [facility] Start: 2021 History SDOH Social Connections Membership 2 [facility] Start: 12-23-2019 Education 12 [facility] Start: 1995 Sex Assigned At Female [facility] Work Phone: Start: 08-26-2021 End: 07-22-2022 Exposure to SARS-CoV-2 (event) Not sure [facility] End: 04-05-2014 History of tobacco use Current smoker [facility] Tobacco smoking status No Smokin g Status Entered [facility] Start: 08-05-2020 End: 07-30-2021 History of Social function [facility] Start: 08-05-2020 End: 07-30-2021 Social connection and isolation panel [facility] How often do you get together with friends or relatives? Patient refused [facility] Do you belong to any clubs or organizations such as quaker groups, unions, fraternal or athletic groups, or school groups? No [facility] Are you now , , , , never or living with a partner? [facility] How often to you hav e a drink containing alcohol? Never [facility] Do you feel stress - tense, restless, nervous, or anxious, or unable to sleep at night because your mind is troubled all the time - these days [OSQ] To some extent [facility] Center (I/We) worried whetammy er (my/our) food would run out before (I/we) got money to buy more. Never true [facility] Start: 01-04-2020 Gender identity Identifies as female gender (finding) [facility] Work Phone: Start: 01-04-2020 Sexual orientation Heterosexual (finding) [facility] Work Phone: End: 04-05-2014 History of tobacco use Cigarette Smoker [facility] Functional Status Date Assessment Result Facility 09-14-2022 Functional Status Room check performed [facility] 09-14-2022 Functional Status [facility] 09-14-2022 Functional Status [facility] Mental Status Date Assessment Result Facility 09-14-2022 Mental Status Oriented x [facility] 09-14-2022 Mental Status [facility] 09-13-2022 Mental Status [facility] Clinical Notes 02-01-2021 to 08-27-2023 Telephone Encounter - Dena Moore LPN - 08/20/2023 9:09 AM ESTTelephone Encounter - Dena Moore LPN - 08/19/2023 3:02 PM Gaby Arguello Ma 05/07/2023 3:29 PM EDT Note Date & Type Note Facility 08-27-2023 Note HNO ID: [id number] Author: Yaneli Mas APRN.BINDERY CUTTER OPERATOR Service: ? Author Type: Nurse Practitioner Type: Progress Notes Filed: 08/27/2023 1:27 PM Note Text: Matilde Lopes is a 28 year old female who presents with Cough (Cough chest congestion chest pain from coughing 2 days) Matilde is a 28 year old female coming in with patient complaining of coughing for 2 days. Cough is described as productive with yellow sputum. Associated symptoms include congestion and headache, nasal congestion. History is negative for chest pain, sore throat, stridor, trouble breathing, and wheezing. Temperature at home was 103.0. Activity, oral fluid intake and urine output are normal. Treatments have included OTC decongestants dayquil and Nyquil, with no. Past Medical History is negative. PAST MEDICAL HISTORY Diagnosis Date Anxiety and depression 03/04/2017 Seeing Chalo Marcelino at the [facility]. Atypical nevus 2021 left upper back medially near neck: Melanocytic nevous excised 08/2021 Condyloma acuminata 12/21/2014 Ex-smoker 2021 Family history of brain tumor 06/08/2017 Sister Simi (is a genetc tumor) Headache, unspecified headache type 06/08/2017 Liver lesion, left lobe 03/04/2017 Per hepatology 03/20/2017 benign and no further work up needed. Morbid obesity (HCC) 06/08/2017 Morbid obesity (HCC) 06/08/[address] Christian [facility] Mucous retention cyst of maxillary sinus 06/17/2017 large on Rt Obesity, Class III, BMI >= 40 03/19/2020 LIZZY (obstructive sleep apnea) 01/28/202312/2022 referred to sleep med. depression 2012 TOA (tubo-ovarian abscess) 09/08/2014 Well adult exam 2021 Last done: 2021 ACTIVE PROBLEM LIST Condyloma Acuminata Anxiety and Depression Liver Lesion, Left Lobe Family History of Brain Tumor Headache, Unspecified Headache Type Morbid Obesity (Hcc) Mucous Retention Cyst of Maxillary Sinus Hypertension, Essential Dyslipidemia Pain in Both Knees Gerd Without Esophagitis Obesity, Class III, BMI >= 40 Medication Management Encounter for Screening for Diabetes Mellitus Well Adult Exam Ex-Smoker Atypical Nevus Lizzy (Obstructive Sleep Apnea) Lipoma of Torso Current Outpatient Medications Medication Sig Dispense Refill hydroCHLOROthiazide 12.5 mg capsule Take 1 capsule by mouth once daily. 30 capsule 0 metoprolol succinate ER (TOPROL XL) 25 mg 24 hr tablet Take 1 tablet by mouth once daily. 30 tablet 0 lisdexamfetamine (VYVANSE) 40 mg capsule Take 40 mg by mouth once daily. levonorgestrel (LILETTA INTRAUTERINE) by INTRAUTERINE route. traZODone (DESYREL) 50 mg tablet Take 1 tablet by mouth daily at bedtime. [facility] 1 hydroCHLOROthiazide 25 mg tablet 25 mg. desvenlafaxine ER (PRISTIQ) 25 mg 24 hr tablet Take 25 mg by mouth once daily. omeprazole (PRILOSEC) 20 mg capsule Take 1 capsule by mouth once daily. 90 capsule 1 meloxicam (MOBIC) 15 mg tablet Take 1 tablet by mouth once daily. Take with food. (Patient not taking: Reported on 09/11/2022) 30 tablet 5 busPIRone (BUSPAR) 5 mg tablet Take 2 tablets by mouth three times daily. [facility] (Patient not taking: Reported on 04/25/2023) No current facility-administered medications for this visit. Social History Tobacco Use Smoking status: Former Types: Cigarettes Quit date: 04/05/2014 Years since quittin.4 Smokeless tobacco: Never Vaping Use Vaping Use: Never used Substance Use Topics Alcohol use: No Drug use: No Alcohol Use: No Tobacco Use: Quit 04/05/2014. Types: Cigarettes FAMILY HISTORY Adopted: Yes Problem Relation Age of Onset Coronary Artery Disease Mother 53 other (brain tumor) Sister Cancer Maternal Aunt Review of Systems Constitutional: Negative for chills, fever and malaise/fatigue. HENT: Positive for congestion, sinus pain and sore throat. Respiratory: Positive for cough and sputum production. Negative for shortness of breath, wheezing and stridor. Cardiovascular: Negative for chest pain and palpitations. Gastrointestinal: Negative for abdominal pain, nausea and vomiting. Neurological: Positive for headaches. Negative for dizziness. BP 130/90 Pulse 80 Temp 99 Resp 16 Wt 265 lb (120.2kg) SpO2 100% Physical Exam Vitals and nursing note reviewed. Constitutional: Appearance: Normal appearance. HENT: Head: Normocephalic and atraumatic. Right Ear: No mastoid tenderness. Left Ear: No mastoid tenderness. Ears: Comments: Ears: Tympanic membrane's pearly flores, + light reflex, bilateral external canal with erythema , no edema Nose: Comments: Nose: Turbinates with erythema, edema, and discharge, no complete obstructions, boggy nasal, mucus membranes pink, frontal sinus tenderness to percussion Mouth/Throat: Mouth: Mucous membranes are moist. Pharynx: Oropharynx is clear. Posterior oropharyngeal erythema pre (more content not included)... [facility] 08-20-2023 Miscellaneous Notes Left a message for pt to call the office and ask to speak to a nurse. Also mailed a letter to call the office for details, below. Dena Moore LPN Left a message for pt to call the office and ask to speak to a nurse. Dena Moore LPN Left a message for pt to call the office and ask to speak to a nurse. Dena Moore LPN Advise patient refill requests denied. No Showed to appt in May. Was advised in Jul to contact office to make an appt and never did. FREDY 01/27/23 NOV none scheduled Patient has been identified by name and date of : Yes Requested Prescriptions Pending Prescriptions Disp Refills hydroCHLOROthiazide 12.5 mg capsule 30 capsule 0 Sig: Take 1 capsule by mouth once daily. metoprolol succinate ER (TOPROL XL) 25 mg 24 hr tablet 30 tablet 0 Sig: Take 1 tablet by mouth once daily. RX INSTRUCTIONS: Patient aware RX will be sent to pharmacy. No need to notify patient. Rufina Roman documented in this encounter [facility] 05-20-2023 Note HNO ID: [id number] Author: Isiah Michael PSYD Service: ? Author Type: Physician Type: Progress Notes Filed: 05/20/2023 11:43 AM Note Text: [facility] Progress Note 05/20/2023 Billing code: Yousif Patient did not attend, cancel, or reschedule this appointment. [employer] reminder message sent with information for rescheduling. Isiah Michael Psy.D. Clinical Health Psychologist [facility] 05-07-2023 Note HNO ID: [id number] Author: Gaby Flaherty Ma Service: ? Author Type: ? Type: Progress Notes Filed: 05/08/2023 2:44 PM Note Text: CT and ER reports below: Scan on 05/06/2023 5:41 PM by ProviderIrasema PA-C: Consultation - Emergency Medicine Scan on 05/06/2023 5:35 PM by ProviderIrasema PA-C: CT Scan [facility] 05-07-2023 History of Present illness Narrative CT and ER reports below: Scan on 05/06/2023 5:41 PM by ProviderIrasema PA-C: Consultation - Emergency Medicine Scan on 05/06/2023 5:35 PM by ProviderIrasema PA-C: CT Scan documented in this encounter [facility] 04-25-2023 Note HNO ID: [id number] Author: Viraj Jones MD Service: ? Author Type: Physician Type: Progress Notes Filed: 04/25/2023 10:55 AM Note Text: Matilde Lopes is a 27 year old FEMALE who presents with Urinary Problem (Painful urination /Started 1 week ago /), Abdominal Pain (Cramping /Lower ABD/Started last night ), and Vaginal Problem (Patient has an IUD and is worried that it might of moved /Bleeding /Patient states it only happens when she urinates ) 27 years old female present with painful urination for the last 1 week Mild lower abdominal pain and cramping Patient stated that when she urinated some vaginal bleeding although not very significant bleeding Stopped when she stopped the urination She has IUD, she is concerned that IUD might have moved She is planning to see a CLINICAL QUALITY MANAGER next week There is no persistent vaginal bleeding No fever or chills. Abdominal Pain Associated symptoms include dysuria. Vaginal Problem Associated symptoms include abdominal pain. PAST MEDICAL HISTORY Diagnosis Date Anxiety and depression 03/04/2017 Seeing Chalo Marcelino at the [facility]. Atypical nevus 2021 left upper back medially near neck: Melanocytic nevous excised 08/2021 Condyloma acuminata 12/21/2014 Ex-smoker 2021 Family history of brain tumor 06/08/2017 Sister Simi (is a genetc tumor) Headache, unspecified headache type 06/08/2017 Liver lesion, left lobe 03/04/2017 Per hepatology 03/20/2017 benign and no further work up needed. Morbid obesity (HCC) 06/08/2017 Morbid obesity (HCC) 06/08/[address] [facility] Mucous retention cyst of maxillary sinus 06/17/2017 large on Rt Obesity, Class III, BMI >= 40 03/19/2020 LIZZY (obstructive sleep apnea) 01/28/202312/2022 referred to sleep med. depression 2013 TOA (tubo-ovarian abscess) 09/08/2014 Well adult exam 2021 Last done: 2021 ACTIVE PROBLEM LIST Condyloma Acuminata Anxiety and Depression Liver Lesion, Left Lobe Family History of Brain Tumor Headache, Unspecified Headache Type Morbid Obesity (Hcc) Mucous Retention Cyst of Maxillary Sinus Hypertension, Essential Dyslipidemia Pain in Both Knees Gerd Without Esophagitis Obesity, Class III, BMI >= 40 Medication Management Encounter for Screening for Diabetes Mellitus Well Adult Exam Ex-Smoker Atypical Nevus Lizzy (Obstructive Sleep Apnea) Lipoma of Torso Current Outpatient Medications Medication Sig Dispense Refill hydroCHLOROthiazide 25 mg tablet 25 mg. lisdexamfetamine (VYVANSE) 40 mg capsule Take 40 mg by mouth once daily. omeprazole (PRILOSEC) 20 mg capsule Take 1 capsule by mouth once daily. 90 capsule 1 metoprolol succinate ER (TOPROL XL) 25 mg 24 hr tablet Take 1 tablet by mouth once daily. 90 tablet 1 levonorgestrel (LILETTA INTRAUTERINE) by INTRAUTERINE route. traZODone (DESYREL) 50 mg tablet Take 1 tablet by mouth daily at bedtime. [facility] 30 tablet 1 desvenlafaxine ER (PRISTIQ) 25 mg 24 hr tablet Take 25 mg by mouth once daily. hydroCHLOROthiazide 12.5 mg capsule Take 1 capsule by mouth once daily. (Patient not taking: Reported on 04/25/2023) 90 capsule 1 meloxicam (MOBIC) 15 mg tablet Take 1 tablet by mouth once daily. Take with food. (Patient not taking: Reported on 09/11/2022) 30 tablet 5 busPIRone (BUSPAR) 5 mg tablet Take 2 tablets by mouth three times daily. [facility] (Patient not taking: Reported on 04/25/2023) No current facility-administered medications for this visit. Social History Tobacco Use Smoking status: Former Types: Cigarettes Quit date: 04/05/2014 Years since quittin.0 Smokeless tobacco: Never Vaping Use Vaping Use: Never used Substance Use Topics Alcohol use: No Drug use: No Alcohol Use: No Tobacco Use: Quit 04/05/2014. Types: Cigarettes FAMILY HISTORY Adopted: Yes Problem Relation Age of Onset Coronary Artery Disease Mother 53 other (brain tumor) Sister Cancer Maternal Aunt Review of Systems Gastrointestinal: Positive for abdominal pain. Genitourinary: Positive for dysuria and vaginal discharge. Occasional vaginal bleeding All other systems reviewed and are negative. BP 128/86 Pulse 60 Temp (Src) 97.7 (Temporal) Resp 18 Wt 280 lb (127.0kg) SpO2 96% LMP 04/01/2023 Physical Exam Vitals reviewed. Constitutional: General: She is not in acute distress. Appearance: Normal appearance. She is not ill-appearing or toxic-appearing. Cardiovascular: Rate and Rhythm: Normal rate and regular rhythm. Heart sounds: Normal heart sounds. Pulmonary: Effort: Pulmonary effort is normal. Breath sounds: Normal breath sounds. Abdominal: General: Abdomen is flat. There is no distension. Palpations: Abdomen is soft. Tenderness: There is no abdominal tenderness. There is no right CVA tenderness, left CVA tenderness, guarding or rebound. Neurolo (more content not included)... [facility] 04-25-2023 Instructions Viraj Jones MD - 04/25/2023 10:53 AM EDT Maintain hydration Follow-up with your CLINICAL QUALITY MANAGER for further evaluation and care of your symptoms Explained details documented in this encounter [facility] 04-25-2023 History of Present illness Narrative Matilde Lopes is a 27 year old FEMALE who presents with Urinary Problem (Painful urination /Started 1 week ago /), Abdominal Pain (Cramping /Lower ABD/Started last night ), and Vaginal Problem (Patient has an IUD and is worried that it might of moved /Bleeding /Patient states it only happens when she urinates ) 27 years old female present with painful urination for the last 1 week Mild lower abdominal pain and cramping Patient stated that when she urinated some vaginal bleeding although not very significant bleeding Stopped when she stopped the urination She has IUD, she is concerned that IUD might have moved She is planning to see a CLINICAL QUALITY MANAGER next week There is no persistent vaginal bleeding No fever or chills. Abdominal Pain Associated symptoms include dysuria. Vaginal Problem Associated symptoms include abdominal pain. PAST MEDICAL HISTORY Diagnosis Date Anxiety and depression 03/04/2017 Seeing Chalo Marcelino at the [facility]. Atypical nevus 2021 left upper back medially near neck: Melanocytic nevous excised 08/2021 Condyloma acuminata 12/21/2014 Ex-smoker 2021 Family history of brain tumor 06/08/2017 Sister Simi (is a genetc tumor) Headache, unspecified headache type 06/08/2017 Liver lesion, left lobe 03/04/2017 Per hepatology 03/20/2017 benign and no further work up needed. Morbid obesity (HCC) 06/08/2017 Morbid obesity (HCC) 06/08/[address] Christian [facility] Mucous retention cyst of maxillary sinus 06/17/2017 large on Rt Obesity, Class III, BMI >= 40 03/19/2020 LIZZY (obstructive sleep apnea) 01/28/202312/2022 referred to sleep med. depression 2012 TOA (tubo-ovarian abscess) 09/08/2014 Well adult exam 2021 Last done: 2021 ACTIVE PROBLEM LIST Condyloma Acuminata Anxiety and Depression Liver Lesion, Left Lobe Family History of Brain Tumor Headache, Unspecified Headache Type Morbid Obesity (Hcc) Mucous Retention Cyst of Maxillary Sinus Hypertension, Essential Dyslipidemia Pain in Both Knees Gerd Without Esophagitis Obesity, Class III, BMI >= 40 Medication Management Encounter for Screening for Diabetes Mellitus Well Adult Exam Ex-Smoker Atypical Nevus Lizzy (Obstructive Sleep Apnea) Lipoma of Torso Current Outpatient Medications Medication Sig Dispense Refill hydroCHLOROthiazide 25 mg tablet 25 mg. lisdexamfetamine (VYVANSE) 40 mg capsule Take 40 mg by mouth once daily. omeprazole (PRILOSEC) 20 mg capsule Take 1 capsule by mouth once daily. 90 capsule 1 metoprolol succinate ER (TOPROL XL) 25 mg 24 hr tablet Take 1 tablet by mouth once daily. 90 tablet 1 levonorgestrel (LILETTA INTRAUTERINE) by INTRAUTERINE route. traZODone (DESYREL) 50 mg tablet Take 1 tablet by mouth daily at bedtime. [facility] 30 tablet 1 desvenlafaxine ER (PRISTIQ) 25 mg 24 hr tablet Take 25 mg by mouth once daily. hydroCHLOROthiazide 12.5 mg capsule Take 1 capsule by mouth once daily. (Patient not taking: Reported on 04/25/2023) 90 capsule 1 meloxicam (MOBIC) 15 mg tablet Take 1 tablet by mouth once daily. Take with food. (Patient not taking: Reported on 09/11/2022) 30 tablet 5 busPIRone (BUSPAR) 5 mg tablet Take 2 tablets by mouth three times daily. [facility] (Patient not taking: Reported on 04/25/2023) No current facility-administered medications for this visit. Social History Tobacco Use Smoking status: Former Types: Cigarettes Quit date: 04/05/2014 Years since quittin.0 Smokeless tobacco: Never Vaping Use Vaping Use: Never used Substance Use Topics Alcohol use: No Drug use: No Alcohol Use: No Tobacco Use: Quit 04/05/2014. Types: Cigarettes FAMILY HISTORY Adopted: Yes Problem Relation Age of Onset Coronary Artery Disease Mother 53 other (brain tumor) Sister Cancer Maternal Aunt Review of Systems Gastrointestinal: Positive for abdominal pain. Genitourinary: Positive for dysuria and vaginal discharge. Occasional vaginal bleeding All other systems reviewed and are negative. BP 128/86 Pulse 60 Temp (Src) 97.7 (Temporal) Resp 18 Wt 280 lb (127.0kg) SpO2 96% LMP 04/01/2023 Physical Exam Vitals reviewed. Constitutional: General: She is not in acute distress. Appearance: Normal appearance. She is not ill-appearing or toxic-appearing. Cardiovascular: Rate and Rhythm: Normal rate and regular rhythm. Heart sounds: Normal heart sounds. Pulmonary: Effort: Pulmonary effort is normal. Breath sounds: Normal breath sounds. Abdominal: General: Abdomen is flat. There is no distension. Palpations: Abdomen is soft. Tenderness: There is no abdominal tenderness. There is no right CVA tenderness, left CVA tenderness, guarding or rebound. Neurological: Mental Status: She is alert. Explained to patient that urine did not show any findings suggestive for infection. Regarding her IUD which she is concerned that he might have moved I explained to patient that if it is in vaginal canal then I may be able to evaluate and take it out but if it is not in vaginal canal there will be nothing much I could do about her IUD situation. Stated that she does not think that it is not vaginal canal and also that she would prefer to see the CLINICAL QUALITY MANAGER to get herself evaluated and do not want an examination here today, which I agree with her as well. Explained to her that there is no need of antibiotics because urine did not show UTI she did not want Pyridium for symptom relief ASSESSMENT/PLAN: 1. Dysuria - ICD9: 788.1, ICD10: R30.0 - URINALYSIS, DIPSTICK ONLY Maintain hydration Follow-up with your CLINICAL QUALITY MANAGER for further evaluation and care of your symptoms Explained details Patient understand and agreed Viraj Jones MD documented in this encounter [facility] 04-17-2023 Note HNO ID: [id number] Author: Mervin Mathis, PhD Service: ? Author Type: Psychologist Type: Progress Notes Filed: 04/17/2023 2:28 PM Note Text: Matilde Lopes [id number] April 17, 2023 [facility] Bariatric and Metabolic [facility] M61 Psychology Orientation/ Welcome Group CPT: NO CHARGE (informational seminar/no treatment provided) 1:00-2:00pm Psychology Orientation Seminar Patients attended an informational seminar as their first step in the BMI program. Patients provided verbal consent related to the use of virtual visits and were reminded of the limits of confidentiality. Provided basic information about bariatric surgery procedures, benefits, lifestyle changes needed, and psychological risks. Patients were oriented to the multidisciplinary process, role of psychology in the bariatric program, and various behavioral health services provided. Reviewed psychosocial adjustment issues common after surgery, and how such problems can be prevented with pre- and post-op care. Also discussed risks of alcohol, nicotine, and marijuana after surgery and reviewed requirements for cessation and toxicology screenings. Patients were encouraged to seek or intensify mental health treatment if needed, and provided with resources to find mental health care. Lastly, briefly reviewed benefits of food diaries and encouraged patients to begin identifying barriers to weight management by tracking intake. Orders for referrals and toxicology screens were placed if requested by the patient. Following the session, patients were provided with a copy of the presentation slides, a list of recommended readings including a link to the BMI manual, and a mental health documentation form to give to mental health providers, if applicable. Orders placed by patient request: NONE Plan: Patient to be scheduled for an individual psychology consultation visit. Mervin Mathis, Ph.D. Psychologist [facility] 04-17-2023 History of Present illness Narrative Matilde Lopes [id number] April 17, 2023 [facility] Bariatric and Metabolic [facility] M61 Psychology Orientation/ Welcome Group CPT: NO CHARGE (informational seminar/no treatment provided) 1:00-2:00pm Psychology Orientation Seminar Patients attended an informational seminar as their first step in the BMI program. Patients provided verbal consent related to the use of virtual visits and were reminded of the limits of confidentiality. Provided basic information about bariatric surgery procedures, benefits, lifestyle changes needed, and psychological risks. Patients were oriented to the multidisciplinary process, role of psychology in the bariatric program, and various behavioral health services provided. Reviewed psychosocial adjustment issues common after surgery, and how such problems can be prevented with pre- and post-op care. Also discussed risks of alcohol, nicotine, and marijuana after surgery and reviewed requirements for cessation and toxicology screenings. Patients were encouraged to seek or intensify mental health treatment if needed, and provided with resources to find mental health care. Lastly, briefly reviewed benefits of food diaries and encouraged patients to begin identifying barriers to weight management by tracking intake. Orders for referrals and toxicology screens were placed if requested by the patient. Following the session, patients were provided with a copy of the presentation slides, a list of recommended readings including a link to the BMI manual, and a mental health documentation form to give to mental health providers, if applicable. Orders placed by patient request: NONE Plan: Patient to be scheduled for an individual psychology consultation visit. Mervin Mathis, Ph.D. Psychologist documented in this encounter [facility] 03-17-2023 Miscellaneous Notes Sent letter. Megan Novoa MA Left additional message for patient to contact office. Sent my chart message. Megan Novoa MA Can we try to re-contact patient and if no success send a letter. Left message for patient to call office back Reyna Calvert Ma Let patient know her sleep study does show sleep apnea. I have placed a referral to see sleep med. documented in this encounter [facility] 01-27-2023 Note HNO ID: [id number] Author: Carol Giron PA-C Service: ? Author Type: Physician Implementation Architect Type: Progress Notes Filed: 01/27/2023 11:59 AM Note Text: Chief Complaint Patient presents with: Recheck: Blood pressure HPI Matilde Lopes is a 27 year old female who presents here today for BP recheck. At last visit, patient had been off of her her HTN medications and BP was elevated. Since then she restarted medication. Has not had any issues. Patient states she has a lump in the middle of her chest. Has had it for a few months. Last week there was pain in this area as well. Went to ER due to the pain, CXR was negative. Patient states that since last week the lump is about the same size. Not as painful. Past medical history, appointments, medications, allergies reviewed. Previous Medical History PAST MEDICAL HISTORY Diagnosis Date Anxiety and depression 03/04/2017 [facility] Atypical nevus 2021 left upper back medially near neck: Melanocytic nevous excised 08/2021 Condyloma acuminata 12/21/2014 Ex-smoker 2021 Family history of brain tumor 06/08/2017 Sister Simi (is a genet tumor) Headache, unspecified headache type 06/08/2017 Liver lesion, left lobe 03/04/2017 Per hepatology 03/20/2017 benign and no further work up needed. Morbid obesity (HCC) 06/08/2017 Morbid obesity (HCC) 06/08/[address] [facility] Mucous retention cyst of maxillary sinus 06/17/2017 large on Rt Obesity, Class III, BMI >= 40 03/19/2020 depression 2013 TOA (tubo-ovarian abscess) 09/08/2014 Well adult exam 2021 Last done: 2021 Previous Surgical History PAST SURGICAL HISTORY Procedure Laterality Date ESOPHAGOGASTRODUODENOSCOPY TRANSORAL DIAGNOSTIC 05/04/2018 EGD EXTRACTION, ERUPTED TOOTH OR EXPOSED ROOT (ELEVATION AND/OR FORCEPS REMOVAL) 2015 PAST SURGICAL HISTORY OF 2002 cyst taken of back of both legs PAST SURGICAL HISTORY OF 2016 left oopherectomy secondary to ectopic. TONSILLECTOMY HX 2016 Family History FAMILY HISTORY Adopted: Yes Problem Relation Age of Onset Coronary Artery Disease Mother 53 other (brain tumor) Sister Cancer Maternal Aunt Patient Allergies ALLERGIES Allergen Reactions Demoral [Meperidine] Mental Status Change Dilaudid [Hydromorp* Shortness of Breath Topamax [Topiramate] Other: See Comments Unknown Current Medications Current Outpatient Medications on File Prior to Visit Medication Sig desvenlafaxine ER (PRISTIQ) 25 mg 24 hr tablet Take 25 mg by mouth once daily. hydroCHLOROthiazide 12.5 mg capsule Take 1 capsule by mouth once daily. omeprazole (PRILOSEC) 20 mg capsule Take 1 capsule by mouth once daily. metoprolol succinate ER (TOPROL XL) 25 mg 24 hr tablet Take 1 tablet by mouth once daily. levonorgestrel (LILETTA INTRAUTERINE) by INTRAUTERINE route. busPIRone (BUSPAR) 5 mg tablet Take 2 tablets by mouth three times daily. [facility] traZODone (DESYREL) 50 mg tablet Take 1 tablet by mouth daily at bedtime. Chalo Lowe at the [facility] meloxicam (MOBIC) 15 mg tablet Take 1 tablet by mouth once daily. Take with food. (Patient not taking: Reported on 09/11/2022) No current facility-administered medications on file prior to visit. Social History Social History Tobacco Use Smoking status: Former Smokeless tobacco: Never Substance Use Topics Alcohol use: No Drug use: No Review of Symptoms REVIEW OF SYSTEMS See hpi EXAM: BP 130/82 (BP Site: Left Arm, BP Position: Sitting, BP Cuff Size: Large Adult) Pulse 90 Temp 37.3 ?C (99.1 ?F) Resp 18 Wt 127 kg (280 lb) LMP (LMP Unknown) BMI 45.89 kg/m? General Appearance: Well appearing, alert, in no acute distress, well-hydrated, well nourished.. Chest wall.: Tenderness and swelling over xiphoid process. No pain of sternum. No step off noted. . Health Maintenance List HEPATITIS B(1 of 3 - 3-dose series) Never done COVID-19 VACCINE(1) Never done BP CONTROLLED (<130/80) Never done PAP TESTING Never done ANNUAL PCP TEAM CHRONIC DISEASE VISIT due on 12/27/2023 DTAP,TDAP,TD(2 - Td or Tdap) due on 2031 HEPATITIS C SCREENING Completed HIV SCREENING Completed INFLUENZA Discontinued Data reviewed ASSESSMENT/PLAN: 1. Hypertension, essential - ICD9: 401.9, ICD10: I10 (primary diagnosis) - good control - Continue current medication(s) - Recommended regular aerobic exercise. - Recommend home blood pressure monitoring, to bring results in on next visit - Goal of BP <130/80 2. Chest wall mass - ICD9: 786.6, ICD10: R22.2 Will get US. Suspect xiphoid sprain. If US is normal and pain is continuing, will pursue MRI for furthe4 eval of the mass. - US CHEST WALL/SOFT TISSUE 3. Xiphoid prominence - ICD9: 733.99, ICD10: R29.898 As above. - US CHEST WALL/SOFT TISSUE Carol Giron PA-C [facility] 01-27-2023 History of Present illness Narrative Chief Complaint Patient presents with: Recheck: Blood pressure HPI Matilde Lopes is a 27 year old female who presents here today for BP recheck. At last visit, patient had been off of her her HTN medications and BP was elevated. Since then she restarted medication. Has not had any issues. Patient states she has a lump in the middle of her chest. Has had it for a few months. Last week there was pain in this area as well. Went to ER due to the pain, CXR was negative. Patient states that since last week the lump is about the same size. Not as painful. Past medical history, appointments, medications, allergies reviewed. Previous Medical History PAST MEDICAL HISTORY Diagnosis Date Anxiety and depression 03/04/2017 Seeing Chalo Marcelino at the [facility]. Atypical nevus 2021 left upper back medially near neck: Melanocytic nevous excised 08/2021 Condyloma acuminata 12/21/2014 Ex-smoker 2021 Family history of brain tumor 06/08/2017 Sister Simi (is a genetc tumor) Headache, unspecified headache type 06/08/2017 Liver lesion, left lobe 03/04/2017 Per hepatology 03/20/2017 benign and no further work up needed. Morbid obesity (HCC) 06/08/2017 Morbid obesity (HCC) 06/08/[address] [facility] Mucous retention cyst of maxillary sinus 06/17/2017 large on Rt Obesity, Class III, BMI >= 40 03/19/2020 depression 2013 TOA (tubo-ovarian abscess) 09/08/2014 Well adult exam 2021 Last done: 2021 Previous Surgical History PAST SURGICAL HISTORY Procedure Laterality Date ESOPHAGOGASTRODUODENOSCOPY TRANSORAL DIAGNOSTIC 05/04/2018 EGD EXTRACTION, ERUPTED TOOTH OR EXPOSED ROOT (ELEVATION AND/OR FORCEPS REMOVAL) 2016 PAST SURGICAL HISTORY OF 2002 cyst taken of back of both legs PAST SURGICAL HISTORY OF 2016 left oopherectomy secondary to ectopic. TONSILLECTOMY HX 2016 Family History FAMILY HISTORY Adopted: Yes Problem Relation Age of Onset Coronary Artery Disease Mother 53 other (brain tumor) Sister Cancer Maternal Aunt Patient Allergies ALLERGIES Allergen Reactions Demoral [Meperidine] Mental Status Change Dilaudid [Hydromorp* Shortness of Breath Topamax [Topiramate] Other: See Comments Unknown Current Medications Current Outpatient Medications on File Prior to Visit Medication Sig desvenlafaxine ER (PRISTIQ) 25 mg 24 hr tablet Take 25 mg by mouth once daily. hydroCHLOROthiazide 12.5 mg capsule Take 1 capsule by mouth once daily. omeprazole (PRILOSEC) 20 mg capsule Take 1 capsule by mouth once daily. metoprolol succinate ER (TOPROL XL) 25 mg 24 hr tablet Take 1 tablet by mouth once daily. levonorgestrel (LILETTA INTRAUTERINE) by INTRAUTERINE route. busPIRone (BUSPAR) 5 mg tablet Take 2 tablets by mouth three times daily. [facility] traZODone (DESYREL) 50 mg tablet Take 1 tablet by mouth daily at bedtime. [facility] meloxicam (MOBIC) 15 mg tablet Take 1 tablet by mouth once daily. Take with food. (Patient not taking: Reported on 09/11/2022) No current facility-administered medications on file prior to visit. Social History Social History Tobacco Use Smoking status: Former Smokeless tobacco: Never Substance Use Topics Alcohol use: No Drug use: No Review of Symptoms REVIEW OF SYSTEMS See hpi EXAM: BP 130/82 (BP Site: Left Arm, BP Position: Sitting, BP Cuff Size: Large Adult) Pulse 90 Temp 37.3 C (99.1 F) Resp 18 Wt 127 kg (280 lb) LMP (LMP Unknown) BMI 45.89 kg/m General Appearance: Well appearing, alert, in no acute distress, well-hydrated, well nourished.. Chest wall.: Tenderness and swelling over xiphoid process. No pain of sternum. No step off noted. . Health Maintenance List HEPATITIS B(1 of 3 - 3-dose series) Never done COVID-19 VACCINE(1) Never done BP CONTROLLED (<130/80) Never done PAP TESTING Never done ANNUAL PCP TEAM CHRONIC DISEASE VISIT due on 12/27/2023 DTAP,TDAP,TD(2 - Td or Tdap) due on 2031 HEPATITIS C SCREENING Completed HIV SCREENING Completed INFLUENZA Discontinued Data reviewed ASSESSMENT/PLAN: 1. Hypertension, essential - ICD9: 401.9, ICD10: I10 (primary diagnosis) - good control - Continue current medication(s) - Recommended regular aerobic exercise. - Recommend home blood pressure monitoring, to bring results in on next visit - Goal of BP <130/80 2. Chest wall mass - ICD9: 786.6, ICD10: R22.2 Will get US. Suspect xiphoid sprain. If US is normal and pain is continuing, will pursue MRI for furthe4 eval of the mass. - US CHEST WALL/SOFT TISSUE 3. Xiphoid prominence - ICD9: 733.99, ICD10: R29.898 As above. - US CHEST WALL/SOFT TISSUE Carol Giron PA-C documented in this encounter [facility] 01-22-2023 Note HNO ID: [id number] Author: Megan Nvooa MA Service: ? Author Type: Forestry Adviser Type: Progress Notes Filed: 01/22/2023 9:59 PM Note Text: Scan on 01/21/2023 11:01 AM by External Provider, RUFUSC: X-ray Scan on 01/21/2023 6:28 PM by External Provider, RUFUSC: Consultation - Emergency Medicine Megan Novoa MA [facility] 01-15-2023 Note HNO ID: [id number] Author: Deyanira Horton Service: ? Author Type: ? Type: Progress Notes Filed: 01/15/2023 12:03 PM Note Text: Sleep Study Check-In Documentation Date: January 15, 2023 Name: Matilde Lopes Comments: HST was returned in working order without all sleep questionnaires Patient was not reached. A voicemail was left with patient to call back to complete questionnaires. Deyanira Horton [facility] 01-08-2023 Note HNO ID: [id number] Author: Adriana Phillips MD Service: ? Author Type: Physician Type: Progress Notes Filed: 01/15/2023 12:03 PM Note Text: January 08, 2023 Standing PSG Orders signed in the last 90 days None Future PSG Orders signed in the last 90 days None All Prior Sleep Studies (past 365 days) Some values may be hidden. Unless noted otherwise, only the newest values recorded on each date are displayed. Sleep Studies HOME SLEEP APNEA TEST (HSAT) Date: 01/08/23 BMI Readings from Last 2 Encounters: 12/26/22 : 46.21 kg/m? 09/11/22 : 48.57 kg/m? PAST MEDICAL HISTORY Diagnosis Date Anxiety and depression 03/04/2017 Seeing Chalo Marcelino at the [facility]. Atypical nevus 2021 left upper back medially near neck: Melanocytic nevous excised 08/2021 Condyloma acuminata 12/21/2014 Ex-smoker 2021 Family history of brain tumor 06/08/2017 Sister Simi (is a genetc tumor) Headache, unspecified headache type 06/08/2017 Liver lesion, left lobe 03/04/2017 Per hepatology 03/20/2017 benign and no further work up needed. Morbid obesity (HCC) 06/08/2017 Morbid obesity (HCC) 06/08/[address] [facility] Mucous retention cyst of maxillary sinus 06/17/2017 large on Rt Obesity, Class III, BMI >= 40 03/19/2020 depression 2013 TOA (tubo-ovarian abscess) 09/08/2014 Well adult exam 2021 Last done: 2021 The medical record was reviewed to determine if the proposed sleep study conforms to the [facility] Practice Parameters for the Indications for Polysomnography and Related Procedures, or if the sleep study is indicated for other reasons. Indications for study: LIZZY suspected with comorbid medical or sleep disorders: Morbid obesity (BMI>40 kg/m2) Sleep study to be performed: Home Sleep Apnea Test (HSAT) Special instructions: None-follow laboratory protocol [facility] Staff Note: I have read the above protocol, edited as needed, and agree to the plan. Adriana Phillips MD 2:25 PM, 01/08/2023 [facility] 01-08-2023 Note HNO ID: [id number] Author: Sari Fish Service: ? Author Type: ? Type: Progress Notes Filed: 01/15/2023 12:03 PM Note Text: Nomad# [id number] , date shipped out 01/09/23 Tracking mailout: [id number] Tracking return: [id number] [facility] 01-08-2023 Note HNO ID: [id number] Author: Sari Fish Service: ? Author Type: ? Type: Progress Notes Filed: 01/15/2023 12:03 PM Note Text: January 08, 2023 An order has been received for Home Sleep Apnea Test (HSAT) from angie Tejada. [facility] Staff. Visit prep complete. Comments :No The sleep study is scheduled for 01/08/23. Insurance: [facility] / Plan: [employer] / Product Type: Medicaid / Payer/Plan Subscr Sex Relation Sub. Ins. ID Effective Group Num 1. [facility]* MATILDE LOPES 1995 Female Self [id number] 10/01/22 [facility] [address] Sari Fish [facility] 01-01-2023 Miscellaneous Notes Letter mailed pt with results below. Dena Moore LPN Left additional message/sent my chart message. Mailed letter. Megan Novoa MA Left a message for pt to call the office and ask to speak to a nurse. Dena Moore LPN Left a message for pt to call the office and ask to speak to a nurse. Dena Moore LPN Left message for patient to contact office. Megan Novoa MA Let patient know her recent labs and urine testing were all ok except her good cholesterol was low. This can be improved through increased exercise. documented in this encounter [facility] 12-26-2022 Note HNO ID: [id number] Author: Carlos Oquendo MD Service: ? Author Type: Physician Type: Progress Notes Filed: 12/26/2022 8:42 AM Note Text: Chief Complaint Patient presents with: Blood Pressure HPI Matilde Deshpande is a 27 year old female who presents here today for follow up on Blood pressure Patient with Hx of HTN, Dyslipidemia, GERD, Headaches, Anxiety, depression, obesity, benign liver lesion, ex-smoker as well as those reviewed and addressed below and in ROS. Still at the [facility]. Office visit - blood pressure Do you check your BP at home? yes Readings? Just got a new cuff and BP's readings; 149/106; 160/100; 167/99 84 Patient has not been out of her BP medications. She ran out. Last office visit - 2021 Patient with Hx of HTN, Dyslipidemia, GERD, Headaches, Anxiety, depression, obesity, benign liver lesion, ex-smoker as well as those reviewed and addressed below and in ROS. Mother in Oct 2020 due to a suspected FL. At home her BP's have been running 140's/90-100's Past medical history, appointments, medications, allergies reviewed. Previous Medical History PAST MEDICAL HISTORY Diagnosis Date Anxiety and depression 03/04/2017 Seeing Chalo Marcelino at the [facility]. Atypical nevus 2021 left upper back medially near neck: Melanocytic nevous excised 08/2021 Condyloma acuminata 12/21/2014 Ex-smoker 2021 Family history of brain tumor 06/08/2017 Sister Simi (is a genet tumor) Headache, unspecified headache type 06/08/2017 Liver lesion, left lobe 03/04/2017 Per hepatology 03/20/2017 benign and no further work up needed. Morbid obesity (HCC) 06/08/2017 Morbid obesity (HCC) 06/08/[address] [facility] Mucous retention cyst of maxillary sinus 06/17/2017 large on Rt Obesity, Class III, BMI >= 40 03/19/2020 depression 2013 TOA (tubo-ovarian abscess) 09/08/2014 Well adult exam 2021 Last done: 2021 Previous Surgical History PAST SURGICAL HISTORY Procedure Laterality Date ESOPHAGOGASTRODUODENOSCOPY TRANSORAL DIAGNOSTIC 05/04/2018 EGD EXTRACTION, ERUPTED TOOTH OR EXPOSED ROOT (ELEVATION AND/OR FORCEPS REMOVAL) 2015 PAST SURGICAL HISTORY OF 2002 cyst taken of back of both legs PAST SURGICAL HISTORY OF 2016 left oopherectomy secondary to ectopic. TONSILLECTOMY HX 2016 Family History FAMILY HISTORY Adopted: Yes Problem Relation Age of Onset Coronary Artery Disease Mother 53 other (brain tumor) Sister Cancer Maternal Aunt Patient Allergies ALLERGIES Allergen Reactions Demoral [Meperidine] Mental Status Change Topamax [Topiramate] Other: See Comments Unknown Dilaudid [Hydromorp* Shortness of Breath Current Medications Current Outpatient Medications on File Prior to Visit Medication Sig hydroCHLOROthiazide (HYDRODIURIL, ESIDRIX) 12.5 mg capsule Take 1 capsule by mouth once daily. omeprazole (PRILOSEC) 20 mg capsule Take 1 capsule by mouth once daily. metoprolol succinate ER (TOPROL XL) 25 mg 24 hr tablet Take 1 tablet by mouth once daily. levonorgestrel (LILETTA INTRAUTERINE) by INTRAUTERINE route. meloxicam (MOBIC) 15 mg tablet Take 1 tablet by mouth once daily. Take with food. (Patient not taking: Reported on 09/11/2022) busPIRone (BUSPAR) 5 mg tablet Take 2 tablets by mouth three times daily. [facility] traZODone (DESYREL) 50 mg tablet Take 1 tablet by mouth daily at bedtime. [facility] No current facility-administered medications on file prior to visit. Social History Social History Tobacco Use Smoking status: Former Smokeless tobacco: Never Substance Use Topics Alcohol use: No Drug use: No Review of Symptoms REVIEW OF SYSTEMS GENERAL: No unintentional weight loss, malaise or fevers NECK: Negative for lumps, goiter, pain and significant neck swelling RESPIRATORY: Negative for cough, hemoptysis, wheezing, has noted rusty dyspnea or shortness of breath since being off her BP meds. No orthopnea or paroxysmal nocturnal shortness of breath. Does wake up gasping at times. Feels tired during the day and snores. CARDIOVASCULAR: Negative for chest pain, hypertension, CHF or palpitations. Some leg swelling with being off her water pill. GI: No nausea, vomiting, or diarrhea and No frequent heartburn or reflux symptoms PSYCH: Negative for sleep disturbance, mood disorder and recent psychosocial stressors. Seeing psych ENDOCRINE: Negative for cold or heat intolerance, polyuria, polydipsia and goiter NEURO: No history of syncope, paralysis, seizures or tremors. Has had a few bad headache's after blurring on the left eye. No nausea or vomiting. EXAM: BP 142/98 (BP Site: Left Arm, BP Position: Sitting, BP Cuff Size: Large Adult) Pulse 84 Resp 18 Wt 127.9 kg (282 lb) LMP (LMP Unknown) BMI 46.21 kg/m? Last 5 Encounter Wt Readings: Date: Wt: (more content not included)... [facility] 12-26-2022 History of Present illness Narrative Chief Complaint Patient presents with: Blood Pressure HPI Matilde Deshpande is a 27 year old female who presents here today for follow up on Blood pressure Patient with Hx of HTN, Dyslipidemia, GERD, Headaches, Anxiety, depression, obesity, benign liver lesion, ex-smoker as well as those reviewed and addressed below and in ROS. Still at the [facility]. Office visit - blood pressure Do you check your BP at home? yes Readings? Just got a new cuff and BP's readings; 149/106; 160/100; 167/99 84 Patient has not been out of her BP medications. She ran out. Last office visit - 2021 Patient with Hx of HTN, Dyslipidemia, GERD, Headaches, Anxiety, depression, obesity, benign liver lesion, ex-smoker as well as those reviewed and addressed below and in ROS. Mother in Oct 2020 due to a suspected [place]. At home her BP's have been running 140's/90-100's Past medical history, appointments, medications, allergies reviewed. Previous Medical History PAST MEDICAL HISTORY Diagnosis Date Anxiety and depression 03/04/2017 Seeing Chalo Marcelino at the [facility]. Atypical nevus 2021 left upper back medially near neck: Melanocytic nevous excised 08/2021 Condyloma acuminata 12/21/2014 Ex-smoker 2021 Family history of brain tumor 06/08/2017 Sister Simi (is a genet tumor) Headache, unspecified headache type 06/08/2017 Liver lesion, left lobe 03/04/2017 Per hepatology 03/20/2017 benign and no further work up needed. Morbid obesity (HCC) 06/08/2017 Morbid obesity (HCC) 06/08/[address] [facility] Mucous retention cyst of maxillary sinus 06/17/2017 large on Rt Obesity, Class III, BMI >= 40 03/19/2020 depression 2013 TOA (tubo-ovarian abscess) 09/08/2014 Well adult exam 2021 Last done: 2021 Previous Surgical History PAST SURGICAL HISTORY Procedure Laterality Date ESOPHAGOGASTRODUODENOSCOPY TRANSORAL DIAGNOSTIC 05/04/2018 EGD EXTRACTION, ERUPTED TOOTH OR EXPOSED ROOT (ELEVATION AND/OR FORCEPS REMOVAL) 2015 PAST SURGICAL HISTORY OF 2002 cyst taken of back of both legs PAST SURGICAL HISTORY OF 2015 left oopherectomy secondary to ectopic. TONSILLECTOMY HX 2016 Family History FAMILY HISTORY Adopted: Yes Problem Relation Age of Onset Coronary Artery Disease Mother 53 other (brain tumor) Sister Cancer Maternal Aunt Patient Allergies ALLERGIES Allergen Reactions Demoral [Meperidine] Mental Status Change Topamax [Topiramate] Other: See Comments Unknown Dilaudid [Hydromorp* Shortness of Breath Current Medications Current Outpatient Medications on File Prior to Visit Medication Sig hydroCHLOROthiazide (HYDRODIURIL, ESIDRIX) 12.5 mg capsule Take 1 capsule by mouth once daily. omeprazole (PRILOSEC) 20 mg capsule Take 1 capsule by mouth once daily. metoprolol succinate ER (TOPROL XL) 25 mg 24 hr tablet Take 1 tablet by mouth once daily. levonorgestrel (LILETTA INTRAUTERINE) by INTRAUTERINE route. meloxicam (MOBIC) 15 mg tablet Take 1 tablet by mouth once daily. Take with food. (Patient not taking: Reported on 09/11/2022) busPIRone (BUSPAR) 5 mg tablet Take 2 tablets by mouth three times daily. [facility] traZODone (DESYREL) 50 mg tablet Take 1 tablet by mouth daily at bedtime. [facility] No current facility-administered medications on file prior to visit. Social History Social History Tobacco Use Smoking status: Former Smokeless tobacco: Never Substance Use Topics Alcohol use: No Drug use: No Review of Symptoms REVIEW OF SYSTEMS GENERAL: No unintentional weight loss, malaise or fevers NECK: Negative for lumps, goiter, pain and significant neck swelling RESPIRATORY: Negative for cough, hemoptysis, wheezing, has noted rusty dyspnea or shortness of breath since being off her BP meds. No orthopnea or paroxysmal nocturnal shortness of breath. Does wake up gasping at times. Feels tired during the day and snores. CARDIOVASCULAR: Negative for chest pain, hypertension, CHF or palpitations. Some leg swelling with being off her water pill. GI: No nausea, vomiting, or diarrhea and No frequent heartburn or reflux symptoms PSYCH: Negative for sleep disturbance, mood disorder and recent psychosocial stressors. Seeing psych ENDOCRINE: Negative for cold or heat intolerance, polyuria, polydipsia and goiter NEURO: No history of syncope, paralysis, seizures or tremors. Has had a few bad headache's after blurring on the left eye. No nausea or vomiting. EXAM: BP 142/98 (BP Site: Left Arm, BP Position: Sitting, BP Cuff Size: Large Adult) Pulse 84 Resp 18 Wt 127.9 kg (282 lb) LMP (LMP Unknown) BMI 46.21 kg/m Last 5 Encounter Wt Readings: Date: Wt: 12/26/2022 127.9 kg (282 lb) 09/11/2022 134.4 kg (296 lb 6.4 oz) 07/22/2022 136.5 kg (301 lb) 05/22/2022 0 kg () 09/13/2021 128.4 kg (283 lb) General Appearance: Well appearing, alert, in no acute distress, well-hydrated, well nourished. and Morbidly obese. Neck: Supple, no adenopathy; thyroid symmetric, normal size, no bruits. Lungs: Lungs clear to auscultation. No wheezing, rhonchi, rales.. Heart: RRR without murmur, gallop, or rubs. No ectopy. Abdomen: Normal abdominal exam, Abdomen soft, non-tender. Bowel sounds normal. No masses, organomegaly. Extremities: No deformities, edema, skin discoloration, . Good capillary refill. . Peripheral Pulses: Normal. Health Maintenance List HEPATITIS B(1 of 3 - 3-dose series) Never done COVID-19 VACCINE(1) Never done BP CONTROLLED (<130/80) Never done PAP TESTING Never done ANNUAL PCP TEAM CHRONIC DISEASE VISIT due on 09/27/2022 DTAP,TDAP,TD(2 - Td or Tdap) due on 2031 HEPATITIS C SCREENING Completed HIV SCREENING Completed INFLUENZA Discontinued Data reviewed A/P ASSESSMENT/PLAN: 1. Hypertension, essential - ICD9: 401.9, ICD10: I10 (primary diagnosis) - poor control - Begin HCTZ, metoprolol (Lopressor/Toprol) - Recommended regular aerobic exercise. - Recommend home blood pressure monitoring, to bring results in on next visit - Goal of BP <130/80 Check - COMP METABOLIC PANEL - URINALYSIS, WITH MICROSCOPIC - LIPID PANEL, NONFASTING - HOME SLEEP APNEA TEST (HSAT) 2. Dyslipidemia - ICD9: 272.4, ICD10: E78.5 - to be determined upon return of lab results - Encouraged following a low fat, low cholesterol diet. - Discussed the benefits of regular aerobic exercise and weight loss. - Encouraged following a low carbohydrate, healthy oil intake diet. - COMP METABOLIC PANEL - URINALYSIS, WITH MICROSCOPIC - LIPID PANEL, NONFASTING 3. GERD without esophagitis - ICD9: 530.81, ICD10: K21.9 - Continue treatment with Prilosec 20 mg every day - discussed slow wean to see if she can go to as needed use. 4. Headache, unspecified headache type - ICD9: 784.0, ICD10: R51.9 - suspect migraines. Patient to try to get tylenol or NSAID on board as soon as possible when she notes the vision symptom. 5. Anxiety and depression - ICD9: 300.00, 311, ICD10: F41.9, F32.A - management per Psych 6. Morbid obesity (HCC) - ICD9: 278.01, ICD10: E66.01 Weight decreasing - Behavioral intervention - HOME SLEEP APNEA TEST (HSAT) 7. Obesity, Class III, BMI >= 40 - ICD9: 278.01, ICD10: E66.01 Weight decreasing - Behavioral intervention - HOME SLEEP APNEA TEST (HSAT) 8. Hypersomnolence - ICD9: 780.54, ICD10: G47.10 Check - HOME SLEEP APNEA TEST (HSAT) 9. Snores - ICD9: 786.09, ICD10: R06.83 Check - HOME SLEEP APNEA TEST (HSAT) 10. Encounter for screening for diabetes mellitus - ICD9: V77.1, ICD10: Z13.1 Check - HGB A1C Requested Prescriptions Signed Prescriptions Disp Refills hydroCHLOROthiazide 12.5 mg capsule 90 capsule 1 Sig: Take 1 capsule by mouth once daily. omeprazole (PRILOSEC) 20 mg capsule 90 capsule 1 Sig: Take 1 capsule by mouth once daily. metoprolol succinate ER (TOPROL XL) 25 mg 24 hr tablet 90 tablet 1 Sig: Take 1 tablet by mouth once daily. F/u 4 weeks HTN visit and 6 months for BRI Oquendo MD documented in this encounter [facility] 12-18-2022 Miscellaneous Notes Letter mailed to pt. Dena Moore LPN Left message for pt to contact office. Sent pt My Chart message to contact office. Lewis Herrera LPN Left a message for pt to call the office and ask to speak to a nurse. Dena Moore LPN Left a message for pt to call the office and ask to speak to a nurse. Dena Moore LPN Left message for pt to contact office. Lewis Herrera LPN Prescription denied. She has not seen us for routine visit since 07/2021. And has only seen express care providers since aug 2021. Patient has been identified by name and date of : Patient phones for refill(s): Requested Prescriptions Pending Prescriptions Disp Refills hydroCHLOROthiazide 12.5 mg capsule 30 capsule 0 Sig: Take 1 capsule by mouth once daily. metoprolol succinate ER (TOPROL XL) 25 mg 24 hr tablet 30 tablet 0 Sig: Take 1 tablet by mouth once daily. Date of last office visit in primary care: 09/27/2021, no future appt scheduled, patient keeps telling me she saw PCP few months ago, computer shows was in express care Last 2 Encounter Wt Readings: Date: Wt: 09/11/2022 134.4 kg (296 lb 6.4 oz) 07/22/2022 136.5 kg (301 lb) Previous labs/tests for medication: Blood Pressure: BUN (mg/dL) Date Value 2021 15 Sodium (mmol/L) Date Value 2021 141 Last 1 Encounter BP Readings: Date: BP: 09/11/2022 124/90 Please advise. Thank you. Alvina Shah LPN documented in this encounter [facility] 09-15-2022 Note . MICRO - Microbiology PROCEDURE: Affirm Pathogens DNA Direct Probe [*1] SOURCE: Vaginal Fluid BODY SITE: Cervix COLLECTED DATE/TIME: 09/13/2022 19:15 EST RECEIVED DATE/TIME: 09/14/2022 19:06 EST START DATE/TIME: 09/14/2022 19:06 EST FREE TEXT SOURCE: FINAL REPORTS Final Report [] Verified Date/Time/Personnel: 09/15/2022 10:17 EST Gardnerella vaginalis DNA Probe Positive Eva species DNA Probe Positive Trichomonas vaginalis DNA Probe Negative Performing Locations *1: This test was performed at: [facility], [address] [place] [address], [id number] ([place]) 09-14-2022 Note To whom it may concern, Patient was seen in the hospital on 09/14/2022. Please excuse her from work until 09/17/2022. If there are any questions please feel free to call [facility]. Thank you, Eveline Pereira M.D. Digitally Signed by EVELINE PEREIRA MD on 09/14/2022 05:19 PM [facility] 09-14-2022 Hospital Discharge instructions Patient Education 09/14/2022 14:58:15 Ovarian Cyst Ovarian Cyst An ovarian cyst is a fluid-filled sac that forms on an ovary. The ovaries are small organs that produce eggs in women. Various types of cysts can form on the ovaries. Some may cause symptoms and require treatment. Most ovarian cysts go away on their own, are not cancerous (are benign), and do not cause problems. Common types of ovarian cysts include: Functional (follicle) cysts. ?Occur during the menstrual cycle, and usually go away with the next menstrual cycle if you do not get . ?Usually cause no symptoms. Endometriomas. ?Are cysts that form from the tissue that lines the uterus (endometrium). ?Are sometimes called chocolate cysts because they become filled with blood that turns brown. ?Can cause pain in the lower abdomen during intercourse and during your period. Cystadenoma cysts. ?Develop from cells on the outside surface of the ovary. ?Can get very large and cause lower abdomen pain and pain with intercourse. ?Can cause severe pain if they twist or break open (rupture). Dermoid cysts. ?Are sometimes found in both ovaries. ?May contain different kinds of body tissue, such as skin, teeth, hair, or cartilage. ?Usually do not cause symptoms unless they get very big. Theca lutein cysts. ?Occur when too much of a certain hormone (human chorionic gonadotropin) is produced and overstimulates the ovaries to produce an egg. ?Are most common after having procedures used to assist with the conception of a baby (in vitro fertilization). What are the causes? Ovarian cysts may be caused by: Ovarian hyperstimulation syndrome. This is a condition that can develop from taking fertility medicines. It causes multiple large ovarian cysts to form. Polycystic ovarian syndrome (PCOS). This is a common hormonal disorder that can cause ovarian cysts, as well as problems with your period or fertility. What increases the risk? The following factors may make you more likely to develop ovarian cysts: Being overweight or obese. Taking fertility medicines. Taking certain forms of hormonal control. Smoking. What are the signs or symptoms? Many ovarian cysts do not cause symptoms. If symptoms are present, they may include: Pelvic pain or pressure. Pain in the lower abdomen. Pain during sex. Abdominal swelling. Abnormal menstrual periods. Increasing pain with menstrual periods. How is this diagnosed? These cysts are commonly found during a routine pelvic exam. You may have tests to find out more about the cyst, such as: Ultrasound. X-ray of the pelvis. CT scan. MRI. Blood tests. How is this treated? Many ovarian cysts go away on their own without treatment. Your health care provider may want to check your cyst regularly for 2 3 months to see if it changes. If you are in menopause, it is especially important to have your cyst monitored closely because menopausal women have a higher rate of ovarian cancer. When treatment is needed, it may include: Medicines to help relieve pain. A procedure to drain the cyst (aspiration). Surgery to remove the whole cyst. Hormone treatment or control pills. These methods are sometimes used to help dissolve a cyst. Follow these instructions at home: Take lztm-elc-praavkn and prescription medicines only as told by your health care provider. Do not drive or use heavy machinery while taking prescription pain medicine. Get regular pelvic exams and Pap tests as often as told by your health care provider. Return to your normal activities as told by your health care provider. Ask your health care provider what activities are safe for you. Do not use any products that contain nicotine or tobacco, such as cigarettes and e-cigarettes. If you need help quitting, ask your health care provider. Keep all follow-up visits as told by your health care provider. This is important. Contact a health care provider if: Your periods are late, irregular, or painful, or they stop. You have pelvic pain that does not go away. You have pressure on your bladder or trouble emptying your bladder completely. You have pain during sex. You have any of the following in your abdomen: ?A feeling of fullness. ?Pressure. ?Discomfort. ?Pain that does not go away. ?Swelling. You feel generally ill. You become constipated. You lose your appetite. You develop severe acne. You start to have more body hair and facial hair. You are gaining weight or losing weight without changing your exercise and eating habits. You think you may be . Get help right away if: You have abdominal pain that is severe or gets worse. You cannot eat or drink without vomiting. You suddenly develop a fever. Your menstrual period is much heavier than usual. This information is not intended to replace advice given to you by your health care provider. Make sure you discuss any questions you have with your health care provider. Document Released: 08/17/2006 Document Revised: 11/15/2018 Document Reviewed: 01/18/2017 [employer] Patient Education 2020 [employer]. Follow Up Care 09/13/2022 12:39:27 With:DESIRAE ST MD Address: [address] [place] [address] [address] [address] [place] [address] [phone] When:1-2 days [facility] 09-14-2022 Note Discharge Instructions Thank you for allowing [facility] to assist you with your healthcare needs. The following is important discharge information regarding your hospital visit. Your Care Team DESIRAE ST MD Your Diagnosis Abdominal pain Hemorrhagic cyst of ovary, Ovarian cyst What to do next Follow Up Appointments Follow Up with DESIRAE ST MD When Within 1-2 days Where: [address] [place] [address] [address] [address] [place] [address] [phone] The Following Activity and Diet Have Been Ordered for You Discharge Activity - Ordered -- May Shower Sexual [place] Restricted Driving Restricted, No tub bath for 2 weeks. No driving until pain free. No sexual intercourse for 6 weeks. Do not lift greater than 15lbs for 4 weeks., 09/14/22 14:21:00 EST Discharge Diet - Ordered -- No changes were made to your diet during your hospital stay. Please resume your pre hospitalization diet on discharge., 09/14/22 14:21:00 EST The Following Equipment Has Been Ordered for You Discharge Home Equipment Discharge Wound Care - Ordered -- Keep incision clean and dry. Change dressings as needed. Call if temperature greater than 100.3F, increased bleeding or pain, or foul odor/discharge noticed from incision., 09/14/22 14:21:00 EST The Following Treatments Have Been Ordered for You Discharge Labs No qualifying data available. Discharge Radiology No qualifying data available. Other Therapies No qualifying data available. Post Acute Orders No qualifying data available. Someone Will Contact You Regarding These Home Health Referrals No home referrals have been ordered for you. No one will call you. Allergies Demerol Dilaudid Medications Please ask your primary doctor or pharmacist before taking any other medication not listed, including over the counter drugs, herbal medications, vitamins and or supplements as they may interact with your home medications. What How Much When Why Instructions Last Dose New docusate (Colace 100 mg oral capsule) 1 cap by mouth Two (2) times a day Duration: 30 Days Pickup at [facility] [address] New ibuprofen (ibuprofen 600 mg oral tablet) 1 tab(s) by mouth Every 6 hours as needed for for pain Take with food or milk. Pickup at [facility] [address] New ondansetron (ondansetron 4 mg oral tablet, disintegrating) 1 tab(s) by mouth Every 6 hours as needed for Nausea/Vomiting Pickup at [facility] [address] New oxyCODONE (oxyCODONE 5 mg oral tablet ( IMMEDIATE release )) 1 tab(s) by mouth Every 6 hours as needed for Pain, scale 4-6 Hemorrhagic cyst of ovary Duration: 2 Days Pickup at [facility] [address] New senna (senna (sennosides) 8.6 mg oral tablet) 1 tab(s) by mouth Daily at bedtime Pickup at [facility] [address] Unchanged busPIRone (Buspar use busPIRone ) by mouth Once a day Unchanged FLUoxetine (PROzac) by mouth Once a day Unchanged hydroCHLOROthiazide (hydroCHLOROthiazide 25 mg oral tablet) 1 tab(s) by mouth Once a day Unchanged omeprazole (PriLOSEC) 10 Milligram by mouth Once a day Pharmacy Information [facility] [address]: [address] [place], [place] [phone] Please take this list to your next doctor s visit. Bring all medications you take, including over the counter medications, herbals and other supplements with you to your doctor s visit. Patients and families are reminded to discard old lists and to update any records with all medication providers or retail pharmacies. Education Materials Ovarian Cyst An ovarian cyst is a fluid-filled sac that forms on an ovary. The ovaries are small organs that produce eggs in women. Various types of cysts can form on the ovaries. Some may cause symptoms and require treatment. Most ovarian cysts go away on their own, are not cancerous (are benign), and do not cause problems. Common types of ovarian cysts include: Functional (follicle) cysts. ? Occur during the menstrual cycle, and usually go away with the next menstrual cycle if you do not get . ? Usually cause no symptoms. Endometriomas. ? Are cysts that form from the tissue that lines the uterus (endometrium). ? Are sometimes called chocolate cysts because they become filled with blood that turns brown. ? Can cause pain in the lower abdomen during intercourse and during your period. Cystadenoma cysts. ? Develop from cells on the outside surface of the ovary. ? Can get very large and cause lower abdomen pain and pain with intercourse. ? Can cause severe pain if they twist or break open (rupture). Dermoid cysts. ? Are sometimes found in both ovaries. ? May contain different kinds of body tissue, such as skin, teeth, hair, or cartilage. ? Usually do not cause symptoms unless they get very big. Theca lutein cysts. ? Occur when too much of a certain hormone (human chorionic gonadotropin) is produced and overstimulates the ovaries to produce an egg. ? Are most common after having procedures used to assist with the conception of a baby (in vitro fertilization). What are the causes? Ovarian cysts may be caused by: Ovarian hyperstimulation syndrome. This is a condition that can develop from taking fertility medicines. It causes multiple large ovarian cysts to form. Polycystic ovarian syndrome (PCOS). This is a common hormonal disorder that can cause ovarian cysts, as well as problems with your period or fertility. What increases the risk? The following factors may make you more likely to develop ovarian cysts: Being overweight or obese. Taking fertility medicines. Taking certain forms of hormonal control. Smoking. What are the signs or symptoms? Many ovarian cysts do not cause symptoms. If symptoms are present, they may include: Pelvic pain or pressure. Pain in the lower abdomen. Pain during sex. Abdominal swelling. Abnormal menstrual periods. Increasing pain with menstrual periods. How is this diagnosed? These cysts are commonly found during a routine pelvic exam. You may have tests to find out more about the cyst, such as: Ultrasound. X-ray of the pelvis. CT scan. MRI. Blood tests. How is this treated? Many ovarian cysts go away on their own without treatment. Your health care provider may want to check your cyst regularly for 2 3 months to see if it changes. If you are in menopause, it is especially important to have your cyst monitored closely because menopausal women have a higher rate of ovarian cancer. When treatment is needed, it may include: Medicines to help relieve pain. A procedure to drain the cyst (aspiration). Surgery to remove the whole cyst. Hormone treatment or control pills. These methods are sometimes used to help dissolve a cyst. Follow these instructions at home: Take jmux-mlq-wotkxpo and prescription medicines only as told by your health care provider. Do not drive or use heavy machinery while taking prescription pain medicine. Get regular pelvic exams and Pap tests as often as told by your health care provider. Return to your normal activities as told by your health care provider. Ask your health care provider what activities are safe for you. Do not use any products that contain nicotine or tobacco, such as cigarettes and e-cigarettes. If you need help quitting, ask your health care provider. Keep all follow-up visits as told by your health care provider. This is important. Contact a health care provider if: Your periods are late, irregular, or painful, or they stop. You have pelvic pain that does not go away. You have pressure on your bladder or trouble emptying your bladder completely. You have pain during sex. You have any of the following in your abdomen: ? A feeling of fullness. ? Pressure. ? Discomfort. ? Pain that does not go away. ? Swelling. You feel generally ill. You become constipated. You lose your appetite. You develop severe acne. You start to have more body hair and facial hair. You are gaining weight or losing weight without changing your exercise and eating habits. You think you may be . Get help right away if: You have abdominal pain that is severe or gets worse. You cannot eat or drink without vomiting. You suddenly develop a fever. Your menstrual period is much heavier than usual. This information is not intended to replace advice given to you by your health care provider. Make sure you discuss any questions you have with your health care provider. Document Released: 08/17/2006 Document Revised: 11/15/2018 Document Reviewed: 01/18/2017 [employer] Patient Education 2020 [employer]. Additional Information VACCINATE! IT SAVES LIVES! Members of the community who have not yet received the COVID-19 vaccine and would like to receive it can visit one of [facility] vaccine clinics. There are many vaccine clinic locations within the [facility]. For locations and available times, please visit https://[email or web address].de io.gov/. It is important to note that some COVID mobile vaccine clinics are held outdoors and may be canceled in rainy or stormy conditions. To learn more about pediatric vaccinations (ages 5-11), we invite you to visit the [facility] webpage. [email or web address].org/pa [email or web address]-[email or web address] ypxq-[email or web address]-[email or web address].[email or web address] To learn more about the COVID-19 vaccine, we invite you to visit the [facility] website for a list of frequently asked questions. [email or web address] quently_[email or web address] [facility] Patient Portal Access Instructions: Stay connected with your healthcare team and access your personal medical information anytime with the [facility] Patient Portal.If you would like a full copy of your medical records, please contact the [facility] Medical Records Department, Thursday through Thursday between 8a.m. and 4:30p.m. Please follow the directions below to access the portal: 1.Access the email account you provided upon registration to the hospital.2.Look for an invitation email from [facility].3.Open the email and access the invitation link: Accept Invitation to [facility]4.Fill in the required fernandes to create your account. Sign into www.[employer] with your username and password that you created in the above steps to stay up to date. You can then view a summary of results, a summary of your visits, and the ability to download your summaries to your computer or send the information securely to a physician. Remember that your healthcare information is confidential, so carefully consider who you will allow to register on the [employer] Patient Portal for access to your information. You can also access the [employer] [facility] Patient Portal on the [employer]. Simply click on Health Records under Health Data and then click on the [employer] logo. HOW TO SAFELY DISPOSE OF PRESCRIPTION MEDICATIONS Please use one of the following methods to safely dispose of your unused medications. 1.Use a drug disposal kit: the drug disposal pouch allows you to safely discard your old and unused drugs. Ask your nurse to give you one when you are discharged.2.Visit a local take-back location: Many local pharmacies and police departments have programs that collect old and unwanted prescription drugs. Call your local pharmacy or go to http://Oxitec.tagUin/0A5Hc2u to find one close to you.3.Make use of household items: Use cat litter or old coffee grounds to dispose medications if other options are not available. Mix your drugs with these household products, seal them in an airtight container and throw it into the garbage. Call [facility]: [phone] to be sure your drugs can be disposed of in this way. Some medicines may require a different approach.4.Never flush your medications down the toilet. IF YOU HAVE BEEN PRESCRIBED AN OPIOID FOR PAIN If you have been prescribed an opioid (such as hydrocodone, oxycodone or morphine), it is critical to understand the possible side effects and risks of opioid pain medications. Even when taken as directed, opioids can have several side effects including: Tolerance, meaning you might need to take more of a medication for the same pain relief. Nausea, vomiting and/or constipation. Sleepiness, dizziness, dry mouth, confusion, depression or itching. Physical dependence, meaning you have withdrawal symptoms when a medication is stopped, can develop within a few days. KNOW YOUR RESPONSIBILITIES It is important to know exactly how much and how often to take the opioid pain medications you are prescribed. Never take opioids in higher amounts or more often than prescribed. Do not combine opioids with alcohol or other drugs that cause drowsiness, such as benzodiazepines, also known as benzos, including diazepam and alprazolam, muscle relaxants or sleep aids. Never sell or share prescription opioids. This is illegal. Store opioids in a secure place and out of reach of others (including children, family, friends and visitors). The last page of this document has been signed and retained as a CHART COPY. Signatures Patient Education Materials Ovarian Cyst Medication Leaflets My discharge plan and instructions have been reviewed and explained to me and IMARIANNE KERIA K understand my current condition and have read and understand these discharge instructions. I have received a written copy of the plan/instructions. If I have questions, I am aware that I should contact my doctor. Patient/Lath Hand Signature: Date/Time: Relationship to Patient: ____ Witness Name/Signature: Date/Time: [facility] 09-14-2022 History and physical note Date of Service 09/13/22 Chief Complaint [place] [facility] to [facility] transport due to RLQ History of Present Illness The patient is a 27yo who presented to the [place] ED early this afternoon, the patient reported worsening RLQ pain which she describes as constant and worsening over the last 3 days has been on and off, but is now worse. She has a history of ectopic x2 and noted that the pain felt similar as it was referring to her shoulders. The patient rated her pain at a 9/10 there. She underwent a sterile speculum exam later this evening, and the PA in the ER reported cervical motion tenderness on exam. The patient had received 30mg of Toradol for pain around 1400. The exam was not performed until later in the evening. After her sterile speculum exam around 1900 the patient received 4mg of morphine. Due to concern for RLQ pain, and possible abscess vs ruptured cyst vs appendicitis on CT/TVUS the patient was transferred from [place] ED to [facility] [place] [facility] for further evaluation. Upon arrival to the ED here she reports worsening pain after transport in the [place]. She reports feeling nauseous and lightheaded. States she did have several episodes of vomiting earlier in the day due to pain. She denies fevers, urinary symptoms, vaginal discharge/bleeding, constipation, diarrhea. 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 She does have Liletta IUD which was placed recently - the patient sees Dr. Vega in [place]. Denies concern for STD. CLINICAL QUALITY MANAGER HX - Currently has IUD in place for BC - Denies any hx of STDs - LMP sometime in July but notes she only - Denies any abnormal pap smears : Ectopic - left salpingectomy G2: SAB G3: 2012 term G4: Ectopic - Methotrexate x2 G5: SAB G6: SAB Review of Systems See HPI Physical Exam Vitals and Measurements T: 36.7 C (Temporal Artery) HR: 59 RR: 16 BP: 138/89 SpO2: 96% WT: 122.7 kg Weight Dosing Weight: 122.7 kg (09/13/22) Gen: AAOx3. Tearful, appears in pain CV: regular rate/rhythm Resp: CTAB, no wheezes or rales. No increased work of breathing, no use of accessory muscles Abdom: soft, mild tenderness, nondistended. +BS. No peritoneal signs, no rebound, no guarding SSE: Normal external genitalia. Limited due to body habitus, patient was not tolerant of exam and was pushing out the speculum with her vagina. Cervix unable to be visualized on exam. On bimanual exam the cervix was unable to be palpated therefore cervical motion tenderness was not reproducible. Unable to palpate uterus 2/2 body habitus. Extrem: no edema/erythema/tenderness Lab Results 09/13 1322 Sodium - POC 141 Potassium - POC 3.3 L Chloride - POC 103 Glucose - POC 98 CO2 (POC) 27 BUN (POC) 7.0 L Creatinine (POC) 0.54 Electrolyte Balance (POC) 12.0 BUN/Creatinine Ratio (POC) 13.4 09/13 1307 Hemoglobin (POC) 15.2 Hematocrit (POC) 45.6 WBC (POC) 11.58 H RBC (POC) 5.23 Platelet (POC) 308 Imaging Results and Diagnostics US Pelvis Non-OB W/Transvaginal Result Date: September 13, 2022 Verified By: DAIN PERRY MD CLINICAL STATEMENT: IMPRESSION: 1. 2.8 cm irregular cystic area in the right ovary with no increased peripheral vascularity on color Doppler. In combination with pelvic free fluid, this is most compatible with ruptured/collapsed cyst. Though less likely, early abscess could have a similar appearance and clinical and laboratory correlation is recommended. Consider 6 week follow-up ultrasound if deemed clinically appropriate.2. No evidence of ovarian torsion.3. IUD appears appropriately placed. RECOMMENDATIONS:Unavailable CT Abd/Pelvis w/ IV Contrast Only Result Date: September 13, 2022 Verified By: BOBBY WESTON DO CLINICAL STATEMENT: IMPRESSION: Normal size appendix with minimal surrounding fat stranding, equivocal for acute appendicitis. Short interval follow-up and clinical correlation are recommended. 3.1 cm right adnexal irregular cystic lesion with some fine peripheral enhancement and adjacent free fluid, in the setting of negative beta HCG favored corpus luteal cyst, though differential could include abscess in the appropriate clinical setting. Correlate with transvaginal ultrasound. I have reviewed the resident's preliminary report and agree with findings and impression. Assessment/Plan The patient is a who presented as a transfer from [facility] due to worsening RLQ pain due to ruptured right ovarian cyst Possible peritonitis due to ruptured ovarian cyst - RLQ pain, Vomiting due to pain, intolerant to exam - s/p Gen surg consult at [place] who ruled out appendicitis - TVUS: 2.8 cm irregular cystic area in the right ovary with no increased peripheral vascularity on color Doppler. In combination with pelvic free fluid, this is most compatible with ruptured/collapsed cyst. - CT Scan: Normal size appendix with minimal surrounding fat stranding, equivocal for acute appendicitis. Short interval follow-up and clinical correlation are recommended. 3.1 cm right adnexal irregular cystic lesion with some fine peripheral enhancement and adjacent free fluid, in the setting of negative beta HCG favored corpus luteal cyst, though differential could include abscess - Will obtain Hcg quant, urine was negative at [facility] - Was given 30mg of Toradol (1400) and 4mg of morphine(1900) at [facility] - Will admit for pain control with IBU, Tylenol, oxycodone, and break through morphine - H and H now, and 4mg of morphine now - Repeat CBC in AM to monitor WBC and Hbg - Possible concern for abscess due to imaging concerns, will monitor for fevers and chills. Obesity - Encourage lifestyle modifications - SCDs HTN - Possibly will continue home medications, patient can not remember what she takes will look and let the RN know. DISPO: Admit for pain control. Will obtain repeat H/H and Quant now. Repeat CBC in the AM. Will continue to monitor overnight for resolution of pain. Discussed patient with Dr. Lee Problem List/Past Medical History HTN Obesity Procedure/Surgical History Midline vertical due to suspected ovarian torsion - unsure per patient report if she has both ovaries - states it was not torsed. Laparoscopic left salpingectomy due to ectopic Medications HTCZ with something else she cant remember for HTN Allergies Demerol - rash Dilaudid - patient was young and can not remember the reaction Social History Denies tobacco use, or drug use. Occasional social drinking Family History Denies any family hx of ovarian, cervical, uterine or breast cancer. Code Status Full Digitally Signed by EVONNE TODD DO on 09/14/2022 01:34 AM [facility] The patient is a who pr esented as a transfer from [facility] due to worsening RLQ pain due to ruptured right ovarian cyst Possible peritonitis due to ruptured ovarian cyst - RLQ pain, Vomiting due to pain, intolerant to exam - s/p Gen surg consult at [place] who ruled out appendicitis - TVUS: 2.8 cm irregular cystic area in the right ovary with no increased peripheral vascularity on color Doppler. In combination with pelvic free fluid, this is most compatible with ruptured/collapsed cyst. - CT Scan: Normal size appendix with minimal surrounding fat stranding, equivocal for acute appendicitis. Short interval follow-up and clinical correlation are recommended. 3.1 cm right adnexal irregular cystic lesion with some fine peripheral enhancement and adjacent free fluid, in the setting of negative beta HCG favored corpus luteal cyst, though differential could include abscess - Will obtain Hcg quant, urine was negative at [place] - Was given 30mg of Toradol (1400) and 4mg of morphine(1900) at [place] - Will admit for pain control with IBU, Tylenol, oxycodone, and break through morphine - H and H now, and 4mg of morphine now - Repeat CBC in AM to monitor WBC and Hbg - Possible concern for abscess due to imaging concerns, will monitor for fevers and chills. Obesity - Encourage lifestyle modifications - SCDs HTN - Possibly will continue home medications, patient can not remember what she takes will look and let the RN know. DISPO: Admit for pain control. Will obtain repeat H/H and Quant now. Repeat CBC in the AM. Will continue to monitor overnight for resolution of pain. Discussed patient with Dr. Lee Addendum by THOMAS LEE MD on September 14, 2022 01:55:15 EST Agree with above. H&H stable. test negative. Pt is likely having pain secondary to a hemorrhagic cyst. Her vitals are stable. Abdominal exam: Mild to moderate diffuse tenderness to deep palpation. No rebound tenderness or guarding, no peritoneal signs. Dispo: Admit for observation. No concern for infection at this time. TOA or ovarian torsion unlikely given patient stability, no fevers, and benign abdominal exam. Repeat labs in AM with pain control. Discharge pending patient status. Will keep NPO at this time. D/w Dr. Reid. Addendum by EVONNE TODD DO on September 14, 2022 04:55:04 EST Patient seen and examined this AM. The patient is sleeping soundly. Notes her pain is well controlled. Reports RLQ pain. Labs pending this AM. Discussed with patient possible D/C home later today pending pain, and labs. Patient notes she would like to go home, as yesterday was a long day. Denies any subjective fevers or chills overnight. Patient has only received IV morphine for pain, discussed with patient oral oxycodone available as needed for pain as well. Will transition to oral pain medications today, hopefully with resolving abd pain the patient will be able to go home later today. Vitals SignsLast Charted Minimum Maximum Temp 36.7(SEP 14 02:20) 36.7(SEP 14 02:20) 36.7(SEP 14 02:20) Resp Rate 16(SEP 14 02:20) 16(SEP 13 19:49) 20(SEP 14 01:23) SBP 114(SEP 14 02:20) 114(SEP 14 02:20) C 172(SEP 13 23:13) DBP 69(SEP 14 02:20) L 53(SEP 14 00:47) 89(SEP 13 19:49) GEN: sleeping LUNGS: Work of breathing normal ABD: Appropriately tender RLQ EXT: negative homans sign DISPO: Continue pain management. Will transition to oral pain medications today, hopefully with resolving abd pain the patient will be able to go home later today. CBC-pending this AM. Discussed with Dr. Lee. Addendum by EVONNE TODD DO on September 14, 2022 07:43:17 EST Message sent to charge, incase patient is unable to follow up with Dr. Vega in [place]. WBC count and Hbg stable. Will continue to treat with oral pain medications. Hopefully home later today. 36hr Labs 09/14 0504 Hct 39.5 Hgb 13.5 Platelet 262 WBC 10.1 Addendum by EVELINE PEREIRA MD on September 14, 2022 14:21:13 EST Patient seen and examined at bedside. States she didnt' eat this morning because she was afraid it would cause her pain. States her pain is controlled with medication. Denies any n/v at this time. Discussed case with Dr. Garay. At this time, ok for dc and to follow up with her [employer] this week, Dr. Vega in [place]. Reassured patient that her vitals and labs from this morning are all stable and actually improved from the night before, so we don't believe she needs surgery or is actively bleeding at this time. Patient expressed understanding. Diagnostic Tests Pending * Chlamydia trachomatis PCR 09/13/22 * Affirm Pathogens DNA Direct Probe 09/13/22 * N. gonorrhoeae PCR 09/13/22 [facility] 01-15-2023 History and physical note Date of Service 09/13/22 Chief Complaint [facility] [place] [facility] transport due to RLQ History of Present Illness The patient is a 27yo who presented to the [place] ED early this afternoon, the patient reported worsening RLQ pain which she describes as constant and worsening over the last 3 days has been on and off, but is now worse. She has a history of ectopic x2 and noted that the pain felt similar as it was referring to her shoulders. The patient rated her pain at a 9/10 there. She underwent a sterile speculum exam later this evening, and the PA in the ER reported cervical motion tenderness on exam. The patient had received 30mg of Toradol for pain around 1400. The exam was not performed until later in the evening. After her sterile speculum exam around 1900 the patient received 4mg of morphine. Due to concern for RLQ pain, and possible abscess vs ruptured cyst vs appendicitis onCT/TVUS the patient was transferred from [facility] to [facility] for further evaluation. Upon arrival to the ED here she reports worsening pain after transport in the [facility]. She reports feeling nauseous and lightheaded. States she did have several episodes of vomiting earlier in the day due to pain. She denies fevers, urinary symptoms, vaginal discharge/bleeding, constipation, diarrhea. 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 She does have Liletta IUD which was placed recently -the patient sees Dr. Vega in [place]. Denies concern for STD. 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 Tearful, appears in pain CV: regular rate/rhythm Resp: CTAB, no wheezes or rales. No increased work of breathing, no use of accessory muscles Abdom: soft, mild tenderness, nondistended. +BS. No peritoneal signs, no rebound, no guarding SSE: Normal external genitalia. Limited due to body habitus, patient was not tolerant of exam and was pushing out the speculum with her vagina. Cervix unable to be visualized on exam. On bimanual exam the cervix was unable to be palpated therefore cervical motion tenderness was not reproducible. Unable to palpate uterus 2/2 body habitus. Extrem: no edema/erythema/tenderness Lab Results 09/13 1322 Sodium - POC 141 Potassium - POC 3.3 L Chloride - POC 103 Glucose - POC 98 CO2 (POC) 27 BUN (POC) 7.0 L Creatinine (POC) 0.54 Electrolyte Balance (POC) 12.0 BUN/Creatinine Ratio (POC) 13.4 09/13 1307 Hemoglobin (POC) 15.2 Hematocrit (POC) 45.6 WBC (POC) 11.58 H RBC (POC) 5.23 Platelet (POC) 308 Imaging Results and Diagnostics US Pelvis Non-OB W/Transvaginal Result Date: September 13, 2022 Verified By: DAIN PERRY MD CLINICAL STATEMENT: IMPRESSION: 1. 2.8 cm irregular cystic area in the right ovary with no increased peripheral vascularity on color Doppler. In combination with pelvic free fluid, this is most compatible with ruptured/collapsed cyst. Though less likely, early abscess could have a similar appearance and clinical and laboratory correlation is recommended. Consider 6 week follow-up ultrasound if deemed clinically appro priate.2. No evidence of ovarian torsion.3. IUD appears appropriately placed. RECOMMENDATIONS:Unavailable CT Abd/Pelvis w/ IV Contrast Only Result Date: September 13, 2022 Verified By: BOBBY WESTON DO CLINICAL STATEMENT: IMPRESSION: Normal size appendix with minimal surrounding fat stranding, equivocal for acute appendicitis. Short interval follow-up and clinical correlation are recommended. 3.1 cm right adnexal irregular cystic lesion with some fine peripheral enhancement and adjacent free fluid, in the setting of negative beta HCG favored corpus luteal cyst, though differential could include abscess in the appropriate clinical setting. Correlate with transvaginal ultrasound. I have reviewed the resident's preliminary report and agree with findings and impression. Assessment/Plan The patient is a who presented as a transfer from [place] [facility] due to worsening RLQ pain due to ruptured right ovarian cyst Possible peritonitis due to ruptured ovarian cyst - RLQ pain, Vomiting due to pain, intolerant to exam - s/p Gen surg consult at [place] who ruled out appendicitis - TVUS: 2.8 cm irregular cystic area in the right ovary with no increased peripheral vascularity oncolor Doppler. In combination with pelvic free fluid, this is most compatible with ruptured/collapsed cyst. - CT Scan: Normal size appendix with minimal surrounding fat stranding, equivocal for acute appendicitis. Short interval follow-up and clinical correlation are recommended. 3.1 cm right adnexal irregular cystic lesion with some fine peripheral enhancement and adjacent free fluid, in the setting of n egative beta HCG favored corpus luteal cyst, though differential could include abscess - Will obtain Hcg quant, urine was negative at [place] - Was given 30mg of Toradol (1400) and 4mg of morphine(1900) at [place] - Will admit for pain control with IBU, Tylenol, oxycodone, and break through morphine - H and H now, and 4mg of morphine now - Repeat CBC in AM to monitor WBC and Hbg - Possible concern for abscess due to imaging concerns, will monitor for fevers and chills. Obesity - Encourage lifestyle modifications - SCDs HTN - Possibly will continue home medications, patient can not remember what she takes will look and let the RN know. DISPO: Admit for pain control. Will obtain repeat H/H and Quant now. Repeat CBC in the AM. Will continue to monitor overnight for resolution of pain. Discussed patient with Dr. Lee Problem List/Past Medical History HTN Obesity Procedure/Surgical History Midline vertical due to suspected ovarian torsion - unsure per patient report if she has both ovaries - states it was not torsed. Laparoscopic left salpingectomy due to ectopic Medications HTCZ with something else she cant remember for HTN Allergies Demerol - rash Dilaudid - patient was young and can not remember the reaction Social History Denies tobacco use, or drug use. Occasional social drinking Family History Denies any family hx of ovarian, cervical, uterine or breast cancer. Code Status Full Digitally Signed by EVONNE TODD DO on 09/14/2022 01:34 AM [id number] History and physical note Date of Service 09/13/22 Chief Complaint [facility] [place] [facility] transport due to RLQ History of Present Illness The patient is a 27yo who presented to the [facility] ED early this afternoon, the patient reported worsening RLQ pain which she describes as constant and worsening over the last 3 days has been on and off, but is now worse. She has a history of ectopic x2 and noted that the pain felt similar as it was referring to her shoulders. The patient rated her pain at a 9/10 there. She underwent a sterile speculum exam later this evening, and the PA in the ER reported cervical motion tenderness on exam. The patient had received 30mg of Toradol for pain around 1400. The exam was not performed until later in the evening. After her sterile speculum exam around 1900 the patient received 4mg of morphine. Due to concern for RLQ pain, and possible abscess vs ruptured cyst vs appendicitis onCT/TVUS the patient was transferred from [facility] to [facility] for further evaluation. Upon arrival to the ED here she reports worsening pain after transport in the [facility]. She reports feeling nauseous and lightheaded. States she did have several episodes of vomiting earlier in the day due to pain. She denies fevers, urinary symptoms, vaginal discharge/bleeding, constipation, diarrhea. 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 She does have Liletta IUD which was placed recently -the patient sees Dr. Vega in [place]. Denies concern for STD. 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 Tearful, appears in pain CV: regular rate/rhythm Resp: CTAB, no wheezes or rales. No increased work of breathing, no use of accessory muscles Abdom: soft, mild tenderness, nondistended. +BS. No peritoneal signs, no rebound, no guarding SSE: Normal external genitalia. Limited due to body habitus, patient was not tolerant of exam and was pushing out the speculum with her vagina. Cervix unable to be visualized on exam. On bimanual exam the cervix was unable to be palpated therefore cervical motion tenderness was not reproducible. Unable to palpate uterus 2/2 body habitus. Extrem: no edema/erythema/tenderness Lab Results 09/13 1322 Sodium - POC 141 Potassium - POC 3.3 L Chloride - POC 103 Glucose - POC 98 CO2 (POC) 27 BUN (POC) 7.0 L Creatinine (POC) 0.54 Electrolyte Balance (POC) 12.0 BUN/Creatinine Ratio (POC) 13.4 09/13 1307 Hemoglobin (POC) 15.2 Hematocrit (POC) 45.6 WBC (POC) 11.58 H RBC (POC) 5.23 Platelet (POC) 308 Imaging Results and Diagnostics US Pelvis Non-OB W/Transvaginal Result Date: September 13, 2022 Verified By: DAIN PERRY MD CLINICAL STATEMENT: IMPRESSION: 1. 2.8 cm irregular cystic area in the right ovary with no increased peripheral vascularity on color Doppler. In combination with pelvic free fluid, this is most compatible with ruptured/collapsed cyst. Though less likely, early abscess could have a similar appearance and clinical and laboratory correlation is recommended. Consider 6 week follow-up ultrasound if deemed clinically appro priate.2. No evidence of ovarian torsion.3. IUD appears appropriately placed. RECOMMENDATIONS:Unavailable CT Abd/Pelvis w/ IV Contrast Only Result Date: September 13, 2022 Verified By: BOBBY WESTON DO CLINICAL STATEMENT: IMPRESSION: Normal size appendix with minimal surrounding fat stranding, equivocal for acute appendicitis. Short interval follow-up and clinical correlation are recommended. 3.1 cm right adnexal irregular cystic lesion with some fine peripheral enhancement and adjacent free fluid, in the setting of negative beta HCG favored corpus luteal cyst, though differential could include abscess in the appropriate clinical setting. Correlate with transvaginal ultrasound. I have reviewed the resident's preliminary report and agree with findings and impression. Assessment/Plan The patient is a who presented as a transfer from [facility] [facility] due to worsening RLQ pain due to ruptured right ovarian cyst Possible peritonitis due to ruptured ovarian cyst - RLQ pain, Vomiting due to pain, intolerant to exam - s/p Gen surg consult at [place] who ruled out appendicitis - TVUS: 2.8 cm irregular cystic area in the right ovary with no increased peripheral vascularity oncolor Doppler. In combination with pelvic free fluid, this is most compatible with ruptured/collapsed cyst. - CT Scan: Normal size appendix with minimal surrounding fat stranding, equivocal for acute appendicitis. Short interval follow-up and clinical correlation are recommended. 3.1 cm right adnexal irregular cystic lesion with some fine peripheral enhancement and adjacent free fluid, in the setting of n egative beta HCG favored corpus luteal cyst, though differential could include abscess - Will obtain Hcg quant, urine was negative at [place] - Was given 30mg of Toradol (1400) and 4mg of morphine(1900) at [place] - Will admit for pain control with IBU, Tylenol, oxycodone, and break through morphine - H and H now, and 4mg of morphine now - Repeat CBC in AM to monitor WBC and Hbg - Possible concern for abscess due to imaging concerns, will monitor for fevers and chills. Obesity - Encourage lifestyle modifications - SCDs HTN - Possibly will continue home medications, patient can not remember what she takes will look and let the RN know. DISPO: Admit for pain control. Will obtain repeat H/H and Quant now. Repeat CBC in the AM. Will continue to monitor overnight for resolution of pain. Discussed patient with Dr. Lee Problem List/Past Medical History HTN Obesity Procedure/Surgical History Midline vertical due to suspected ovarian torsion - unsure per patient report if she has both ovaries - states it was not torsed. Laparoscopic left salpingectomy due to ectopic Medications HTCZ with something else she cant remember for HTN Allergies Demerol - rash Dilaudid - patient was young and can not remember the reaction Social History Denies tobacco use, or drug use. Occasional social drinking Family History Denies any family hx of ovarian, cervical, uterine or breast cancer. Code Status Full Digitally Signed by EVONNE TODD DO on 09/14/2022 01:34 AM [facility] [id number] History and physical note Date of Service 09/13/22 Chief Complaint [facility] to [place] [facility] transport due to RLQ History of Present Illness The patient is a 27yo who presented to the [facility] ED early this afternoon, the patient reported worsening RLQ pain which she describes as constant and worsening over the last 3 days has been on and off, but is now worse. She has a history of ectopic x2 and noted that the pain felt similar as it was referring to her shoulders. The patient rated her pain at a 9/10 there. She underwent a sterile speculum exam later this evening, and the PA in the ER reported cervical motion tenderness on exam. The patient had received 30mg of Toradol for pain around 1400. The exam was not performed until later in the evening. After her sterile speculum exam around 1900 the patient received 4mg of morphine. Due to concern for RLQ pain, and possible abscess vs ruptured cyst vs appendicitis onCT/TVUS the patient was transferred from [place] [facility] to [facility] for further evaluation. Upon arrival to the ED here she reports worsening pain after transport in the [facility]. She reports feeling nauseous and lightheaded. States she did have several episodes of vomiting earlier in the day due to pain. She denies fevers, urinary symptoms, vaginal discharge/bleeding, constipation, diarrhea. Esaue is unsure of LMP - last month had supplier quality specialist than normal menstrual cycle (unknown dates in July) and has not had menstrual cycle this month. She does have Liletta IUD which was placed recently -the patient sees Dr. Vega in [place]. Denies concern for STD. 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 Tearful, appears in pain CV: regular rate/rhythm Resp: CTAB, no wheezes or rales. No increased work of breathing, no use of accessory muscles Abdom: soft, mild tenderness, nondistended. +BS. No peritoneal signs, no rebound, no guarding SSE: Normal external genitalia. Limited due to body habitus, patient was not tolerant of exam and was pushing out the speculum with her vagina. Cervix unable to be visualized on exam. On bimanual exam the cervix was unable to be palpated therefore cervical motion tenderness was not reproducible. Unable to palpate uterus 2/2 body habitus. Extrem: no edema/erythema/tenderness Lab Results 09/13 1322 Sodium - POC 141 Potassium - POC 3.3 L Chloride - POC 103 Glucose - POC 98 CO2 (POC) 27 BUN (POC) 7.0 L Creatinine (POC) 0.54 Electrolyte Balance (POC) 12.0 BUN/Creatinine Ratio (POC) 13.4 09/13 1307 Hemoglobin (POC) 15.2 Hematocrit (POC) 45.6 WBC (POC) 11.58 H RBC (POC) 5.23 Platelet (POC) 308 Imaging Results and Diagnostics US Pelvis Non-OB W/Transvaginal Result Date: September 13, 2022 Verified By: DAIN PERRY MD CLINICAL STATEMENT: IMPRESSION: 1. 2.8 cm irregular cystic area in the right ovary with no increased peripheral vascularity on color Doppler. In combination with pelvic free fluid, this is most compatible with ruptured/collapsed cyst. Though less likely, early abscess could have a similar appearance and clinical and laboratory correlation is recommended. Consider 6 week follow-up ultrasound if deemed clinically appro priate.2. No evidence of ovarian torsion.3. IUD appears appropriately placed. RECOMMENDATIONS:Unavailable CT Abd/Pelvis w/ IV Contrast Only Result Date: September 13, 2022 Verified By: BOBBY WESTON DO CLINICAL STATEMENT: IMPRESSION: Normal size appendix with minimal surrounding fat stranding, equivocal for acute appendicitis. Short interval follow-up and clinical correlation are recommended. 3.1 cm right adnexal irregular cystic lesion with some fine peripheral enhancement and adjacent free fluid, in the setting of negative beta HCG favored corpus luteal cyst, though differential could include abscess in the appropriate clinical setting. Correlate with transvaginal ultrasound. I have reviewed the resident's preliminary report and agree with findings and impression. Assessment/Plan The patient is a who presented as a transfer from [place] ER due to worsening RLQ pain due to ruptured right ovarian cyst Possible peritonitis due to ruptured ovarian cyst - RLQ pain, Vomiting due to pain, intolerant to exam - s/p Gen surg consult at [place] who ruled out appendicitis - TVUS: 2.8 cm irregular cystic area in the right ovary with no increased peripheral vascularity oncolor Doppler. In combination with pelvic free fluid, this is most compatible with ruptured/collapsed cyst. - CT Scan: Normal size appendix with minimal surrounding fat stranding, equivocal for acute appendicitis. Short interval follow-up and clinical correlation are recommended. 3.1 cm right adnexal irregular cystic lesion with some fine peripheral enhancement and adjacent free fluid, in the setting of n egative beta HCG favored corpus luteal cyst, though differential could include abscess - Will obtain Hcg quant, urine was negative at [place] - Was given 30mg of Toradol (1400) and 4mg of morphine(1900) at [place] - Will admit for pain control with IBU, Tylenol, oxycodone, and break through morphine - H and H now, and 4mg of morphine now - Repeat CBC in AM to monitor WBC and Hbg - Possible concern for abscess due to imaging concerns, will monitor for fevers and chills. Obesity - Encourage lifestyle modifications - SCDs HTN - Possibly will continue home medications, patient can not remember what she takes will look and let the RN know. DISPO: Admit for pain control. Will obtain repeat H/H and Quant now. Repeat CBC in the AM. Will continue to monitor overnight for resolution of pain. Discussed patient with Dr. Lee Problem List/Past Medical History HTN Obesity Procedure/Surgical History Midline vertical due to suspected ovarian torsion - unsure per patient report if she has both ovaries - states it was not torsed. Laparoscopic left salpingectomy due to ectopic Medications HTCZ with something else she cant remember for HTN Allergies Demerol - rash Dilaudid - patient was young and can not remember the reaction Social History Denies tobacco use, or drug use. Occasional social drinking Family History Denies any family hx of ovarian, cervical, uterine or breast cancer. Code Status Full Digitally Signed by EVONNE TODD DO on 09/14/2022 01:34 AM [facility] [id number] History and physical note Date of Service 09/13/22 Chief Complaint [place] [facility] to [place] [facility] transport due to RLQ History of Present Illness The patient is a 27yo who presented to the [place] ED early this afternoon, the patient reported worsening RLQ pain which she describes as constant and worsening over the last 3 days has been on and off, but is now worse. She has a history of ectopic x2 and noted that the pain felt similar as it was referring to her shoulders. The patient rated her pain at a 9/10 there. She underwent a sterile speculum exam later this evening, and the PA in the ER reported cervical motion tenderness on exam. The patient had received 30mg of Toradol for pain around 1400. The exam was not performed until later in the evening. After her sterile speculum exam around 1900 the patient received 4mg of morphine. Due to concern for RLQ pain, and possible abscess vs ruptured cyst vs appendicitis onCT/TVUS the patient was transferred from [place] ED to [place] [facility] for further evaluation. Upon arrival to the ED here she reports worsening pain after transport in the [facility]. She reports feeling nauseous and lightheaded. States she did have several episodes of vomiting earlier in the day due to pain. She denies fevers, urinary symptoms, vaginal discharge/bleeding, constipation, diarrhea. 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 She does have Liletta IUD which was placed recently -the patient sees Dr. Vega in [place]. Denies concern for STD. 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 Tearful, appears in pain CV: regular rate/rhythm Resp: CTAB, no wheezes or rales. No increased work of breathing, no use of accessory muscles Abdom: soft, mild tenderness, nondistended. +BS. No peritoneal signs, no rebound, no guarding SSE: Normal external genitalia. Limited due to body habitus, patient was not tolerant of exam and was pushing out the speculum with her vagina. Cervix unable to be visualized on exam. On bimanual exam the cervix was unable to be palpated therefore cervical motion tenderness was not reproducible. Unable to palpate uterus 2/2 body habitus. Extrem: no edema/erythema/tenderness Lab Results 09/13 1322 Sodium - POC 141 Potassium - POC 3.3 L Chloride - POC 103 Glucose - POC 98 CO2 (POC) 27 BUN (POC) 7.0 L Creatinine (POC) 0.54 Electrolyte Balance (POC) 12.0 BUN/Creatinine Ratio (POC) 13.4 09/13 1307 Hemoglobin (POC) 15.2 Hematocrit (POC) 45.6 WBC (POC) 11.58 H RBC (POC) 5.23 Platelet (POC) 308 Imaging Results and Diagnostics US Pelvis Non-OB W/Transvaginal Result Date: September 13, 2022 Verified By: DAIN PERRY MD CLINICAL STATEMENT: IMPRESSION: 1. 2.8 cm irregular cystic area in the right ovary with no increased peripheral vascularity on color Doppler. In combination with pelvic free fluid, this is most compatible with ruptured/collapsed cyst. Though less likely, early abscess could have a similar appearance and clinical and laboratory correlation is recommended. Consider 6 week follow-up ultrasound if deemed clinically appro priate.2. No evidence of ovarian torsion.3. IUD appears appropriately placed. RECOMMENDATIONS:Unavailable CT Abd/Pelvis w/ IV Contrast Only Result Date: September 13, 2022 Verified By: BOBBY WESTON DO CLINICAL STATEMENT: IMPRESSION: Normal size appendix with minimal surrounding fat stranding, equivocal for acute appendicitis. Short interval follow-up and clinical correlation are recommended. 3.1 cm right adnexal irregular cystic lesion with some fine peripheral enhancement and adjacent free fluid, in the setting of negative beta HCG favored corpus luteal cyst, though differential could include abscess in the appropriate clinical setting. Correlate with transvaginal ultrasound. I have reviewed the resident's preliminary report and agree with findings and impression. Assessment/Plan The patient is a who presented as a transfer from [place] ER due to worsening RLQ pain due to ruptured right ovarian cyst Possible peritonitis due to ruptured ovarian cyst - RLQ pain, Vomiting due to pain, intolerant to exam - s/p Gen surg consult at [place] who ruled out appendicitis - TVUS: 2.8 cm irregular cystic area in the right ovary with no increased peripheral vascularity oncolor Doppler. In combination with pelvic free fluid, this is most compatible with ruptured/collapsed cyst. - CT Scan: Normal size appendix with minimal surrounding fat stranding, equivocal for acute appendicitis. Short interval follow-up and clinical correlation are recommended. 3.1 cm right adnexal irregular cystic lesion with some fine peripheral enhancement and adjacent free fluid, in the setting of n egative beta HCG favored corpus luteal cyst, though differential could include abscess - Will obtain Hcg quant, urine was negative at [place] - Was given 30mg of Toradol (1400) and 4mg of morphine(1900) at [place] - Will admit for pain control with IBU, Tylenol, oxycodone, and break through morphine - H and H now, and 4mg of morphine now - Repeat CBC in AM to monitor WBC and Hbg - Possible concern for abscess due to imaging concerns, will monitor for fevers and chills. Obesity - Encourage lifestyle modifications - SCDs HTN - Possibly will continue home medications, patient can not remember what she takes will look and let the RN know. DISPO: Admit for pain control. Will obtain repeat H/H and Quant now. Repeat CBC in the AM. Will continue to monitor overnight for resolution of pain. Discussed patient with Dr. Lee Problem List/Past Medical History HTN Obesity Procedure/Surgical History Midline vertical due to suspected ovarian torsion - unsure per patient report if she has both ovaries - states it was not torsed. Laparoscopic left salpingectomy due to ectopic Medications HTCZ with something else she cant remember for HTN Allergies Demerol - rash Dilaudid - patient was young and can not remember the reaction Social History Denies tobacco use, or drug use. Occasional social drinking Family History Denies any family hx of ovarian, cervical, uterine or breast cancer. Code Status Full Digitally Signed by EVONNE TODD DO on 09/14/2022 01:34 AM [facility] [id number] Note ORIGINAL EXAMINATION: TRANSVAGINAL PELVIC ULTRASOUND 09/13/2022 TECHNIQUE: Transvaginal pelvic ultrasound was performed. COMPARISON: CT abdomen pelvis of the same date. HISTORY: ORDERING SYSTEM PROVIDED HISTORY: Reason for Exam: Right pelvic pain for 1 day; suspect ovarian torsion or tubo-ovarian abscess LMP 08/14/2022. AB5 (history of ectopic) FINDINGS: Measurements: Uterus: 8.1 cm x 5.3 cm x 4.6 cm Endometrial stripe: 3.8 mm Right Ovary:4.3 cm x 3.3 cm x 2.8 cm Left Ovary: 2.6 cm x 1.9 cm x 1.9 cm. Ultrasound Findings: The civil technician stated that the study was suboptimal due to patient body habitus. Uterus: Uterus demonstrates normal myometrial echotexture. An intrauterine device appears appropriately placed. Nabothian cysts are noted. Endometrial stripe: Endometrial stripe is within normal limits. Right Ovary: Within the right ovary there is a irregularly-shaped cystic area, measuring 1.5 cm x 2.4 cm x 2.8 cm. There is no peripheral elevated vascularity to suggest abscess. Left Ovary: Left ovary is within normal limits. Free Fluid: There is free fluid in the pelvis, which appears anechoic with no debris. There is normal arterial and venous flow associated with the right and left ovaries. IMPRESSION: 1. 2.8 cm irregular cystic area in the right ovary with no increased peripheral vascularity on color Doppler. In combination with pelvic free fluid, this is most compatible with ruptured/collapsed cyst. Though less likely, early abscess could have a similar appearance and clinical and laboratory correlation is recommended. Consider 6 week follow-up ultrasound if deemed clinically appropriate. 2. No evidence of ovarian torsion. 3. IUD appears appropriately placed. RECOMMENDATIONS: Unavailable Interpreted by: Dain Perry Preliminary Report By: Dain Perry Electronically signed By Dain Perry Dictated Date: 09/13/2022 5:31:10 PM Prelim Date: 09/13/2022 5:47:19 PM Sign Date: 09/13/2022 5:47:19 PM Ordering Provider: MADDIEDEBRA RUSSELL [facility] [id number] Note ORIGINAL EXAMINATION: TRANSVAGINAL PELVIC ULTRASOUND 09/13/2022 TECHNIQUE: Transvaginal pelvic ultrasound was performed. COMPARISON: CT abdomen pelvis of the same date. HISTORY: ORDERING SYSTEM PROVIDED HISTORY: Reason for Exam: Right pelvic pain for 1 day; suspect ovarian torsion or tubo-ovarian abscess LMP 08/14/2022. AB5 (history of ectopic) FINDINGS: Measurements: Uterus: 8.1 cm x 5.3 cm x 4.6 cm Endometrial stripe: 3.8 mm Right Ovary:4.3 cm x 3.3 cm x 2.8 cm Left Ovary: 2.6 cm x 1.9 cm x 1.9 cm. Ultrasound Findings: The civil technician stated that the study was suboptimal due to patient body habitus. Uterus: Uterus demonstrates normal myometrial echotexture. An intrauterine device appears appropriately placed. Nabothian cysts are noted. Endometrial stripe: Endometrial stripe is within normal limits. Right Ovary: Within the right ovary there is a irregularly-shaped cystic area, measuring 1.5 cm x 2.4 cm x 2.8 cm. There is no peripheral elevated vascularity to suggest abscess. Left Ovary: Left ovary is within normal limits. Free Fluid: There is free fluid in the pelvis, which appears anechoic with no debris. There is normal arterial and venous flow associated with the right and left ovaries. IMPRESSION: 1. 2.8 cm irregular cystic area in the right ovary with no increased peripheral vascularity on color Doppler. In combination with pelvic free fluid, this is most compatible with ruptured/collapsed cyst. Though less likely, early abscess could have a similar appearance and clinical and laboratory correlation is recommended. Consider 6 week follow-up ultrasound if deemed clinically appropriate. 2. No evidence of ovarian torsion. 3. IUD appears appropriately placed. RECOMMENDATIONS: Unavailable Interpreted by: Dain Perry Preliminary Report By: Dain Perry Electronically signed By Dain Perry Dictated Date: 09/13/2022 5:31:10 PM Prelim Date: 09/13/2022 5:47:19 PM Sign Date: 09/13/2022 5:47:19 PM Ordering Provider: MADDIE [facility]01-14-2023 Note ORIGINAL EXAMINATION: CT OF THE ABDOMEN AND PELVIS WITH CONTRAST 09/13/2022 3:33 pm TECHNIQUE: CT of the abdomen and pelvis was performed with the administration of intravenous contrast. Multiplanar reformatted images are provided for review. Automated exposure control, iterative reconstruction, and/or weight based adjustment of the mA/kV was utilized to reduce the radiation dose to as low as reasonably achievable. COMPARISON: None. HISTORY: ORDERING SYSTEM PROVIDED HISTORY: Reason for Exam: RIGHT LOWER QUADRANT PAIN X 3 DAYS, NAUSEA, VOMITING pain History surgery for ovarian cyst with removal of left fallopian tube FINDINGS: Lower Chest: Included lung bases are clear. Heart size is normal. Organs: Liver, gallbladder spleen, pancreas, and adrenals are unremarkable. Common bile duct measures at the upper limits of normal, 6 mm. 3 mm nonobstructing left renal calculus. Right kidney, ureters, and bladder are unremarkable. GI/Bowel: Nondilated small bowel. Colon is unremarkable. Appendix is normal in size, however there is subtle surrounding fat stranding. Pelvis: Intrauterine device in appropriate position. Right adnexal 3.1 cm irregular cystic structure with some peripheral enhancement. Small amount of pelvic free fluid. Peritoneum/Retroperitoneum: Aorta is normal in course and caliber. IVC and portal vein are unremarkable. No lymphadenopathy. Bones/Soft Tissues: No acute osseous abnormality or suspicious osseous lesion. IMPRESSION: Normal size appendix with minimal surrounding fat stranding, equivocal for acute appendicitis. Short interval follow-up and clinical correlation are recommended. 3.1 cm right adnexal irregular cystic lesion with some fine peripheral enhancement and adjacent free fluid, in the setting of negative beta HCG favored corpus luteal cyst, though differential could include abscess in the appropriate clinical setting. Correlate with transvaginal ultrasound. I have reviewed the resident's preliminary report and agree with findings and impression. Interpreted by: Bobby Weston Preliminary Report By: Bridget Fishman Electronically signed By Bobby Weston Dictated Date: 09/13/2022 3:41:39 PM Prelim Date: 09/13/2022 4:00:41 PM Sign Date: 09/13/2022 4:05:50 PM Ordering Provider: MADDIE RUSSELL [facility] [id number] Note ORIGINAL EXAMINATION: CT OF THE ABDOMEN AND PELVIS WITH CONTRAST 09/13/2022 3:33 pm TECHNIQUE: CT of the abdomen and pelvis was performed with the administration of intravenous contrast. Multiplanar reformatted images are provided for review. Automated exposure control, iterative reconstruction, and/or weight based adjustment of the mA/kV was utilized to reduce the radiation dose to as low as reasonably achievable. COMPARISON: None. HISTORY: ORDERING SYSTEM PROVIDED HISTORY: Reason for Exam: RIGHT LOWER QUADRANT PAIN X 3 DAYS, NAUSEA, VOMITING pain History surgery for ovarian cyst with removal of left fallopian tube FINDINGS: Lower Chest: Included lung bases are clear. Heart size is normal. Organs: Liver, gallbladder spleen, pancreas, and adrenals are unremarkable. Common bile duct measures at the upper limits of normal, 6 mm. 3 mm nonobstructing left renal calculus. Right kidney, ureters, and bladder are unremarkable. GI/Bowel: Nondilated small bowel. Colon is unremarkable. Appendix is normal in size, however there is subtle surrounding fat stranding. Pelvis: Intrauterine device in appropriate position. Right adnexal 3.1 cm irregular cystic structure with some peripheral enhancement. Small amount of pelvic free fluid. Peritoneum/Retroperitoneum: Aorta is normal in course and caliber. IVC and portal vein are unremarkable. No lymphadenopathy. Bones/Soft Tissues: No acute osseous abnormality or suspicious osseous lesion. IMPRESSION: Normal size appendix with minimal surrounding fat stranding, equivocal for acute appendicitis. Short interval follow-up and clinical correlation are recommended. 3.1 cm right adnexal irregular cystic lesion with some fine peripheral enhancement and adjacent free fluid, in the setting of negative beta HCG favored corpus luteal cyst, though differential could include abscess in the appropriate clinical setting. Correlate with transvaginal ultrasound. I have reviewed the resident's preliminary report and agree with findings and impression. Interpreted by: Bobby Weston Preliminary Report By: Bridget Fishman Electronically signed By Bobby Weston Dictated Date: 09/13/2022 3:41:39 PM Prelim Date: 09/13/2022 4:00:41 PM Sign Date: 09/13/2022 4:05:50 PM Ordering Provider: MADDIE [facility] [id number] Miscellaneous Notes* Telephone Encounter - Paula Osacr PARA MACHINE OPERATOR - 09/12/2022 12:00 PM EST Phone call placed alternate contact number [phone] removed from chart, answered and reported not a number to reach patient. Phone call placed no answer voicemail box not set up, letter mailed to patients listed address withnegative results. Paula Moore LPN * Telephone Encounter - Cindy Farnsworth MA - 09/12/2022 8:26 AM EST Attempted to call pt, voicemail isn't set up. Will try again later Cindy Farnsworth MA * Telephone Encounter - Melvi Novoa APRN.CNP - 09/12/2022 7:12 AM EST Negative for COVID and flu please notify thank you [facility] Influenza virus A and B RNA and SARS-CoV-2 (COVID-19) N gene panel ROMAINE+probe (Resp)COVID 19 RESULT: SARS-CoV-2 (Agent of COVID-19) Not Detected by RT-PCR or equivalent method. This test was developed and its performance characteristics determined by [facility] [place]. This test has been authorized by FDA under an Emergency Use Authorization (EUA). This test has been validated in accordance with the FDA's Guidance Document Policy for DiagnosticsTesting in Laboratories Certified to Perform High Complexity Testing under CLIA prior to Emergency use Authorization for Coronavirus Disease 2019 during the Public Health Emergency issued on October 29, 2019. Test performed by [facility], Keyon Carrillo [facility] Pathology and Laboratory Medicine [place], [address] [place] [address]. INFLUENZA A PCR: Negative for Influenza A by RT-PCR INFLUENZA B PCR: Negative [facility] Influenza B by [facility] on above: Performed By: #### [id number] ####[facility] LABCLIA [id number] [place] [id number] [place] 09-11-2022 NoteHNO ID: [id number] Author: Bernadine Hanson APRN.BINDERY CUTTER OPERATOR Service: ? Author Type: Nurse Practitioner Type: Progress Notes Filed: 09/11/2022 10:28 AM Note Text: SUBJECTIVE: Matilde Deshpande is a 27 year old female. Who presents today with cough, fatigue, body aches, chills. Symptoms started last week. She has been exposed to others who are sick. She had a + covid test at home and needs a test for work. HPI PAST MEDICAL HISTORY Diagnosis Date Anxiety and depression 03/04/2017 [facility] Atypical nevus 2021 left upper back medially near neck: Melanocytic nevous excised 08/2021 Condyloma acuminata 12/21/2014 Ex-smoker 2021 Family history of brain tumor 06/08/2017 Sister Simi (is a [facility] tumor) Headache, unspecified headache type 06/08/2017 Liver lesion, left lobe 03/04/2017 Per hepatology 03/20/2017 benign and no further work up needed. Morbid obesity (HCC) 06/08/2017 Morbid obesity (HCC) 06/08/[address] [facility] Mucous retention cyst of maxillary sinus 06/17/2017 large on Rt Obesity, Class III, BMI >= 40 03/19/2020 depression 2013 TOA (tubo-ovarian abscess) 09/08/2014 Well adult exam 2021 Last done: 2021 FAMILY HISTORY Adopted: Yes Problem Relation Age of Onset Coronary Artery Disease Mother 53 other (brain tumor) Sister Cancer Maternal Aunt Social History Tobacco Use Smoking status: Former Smokeless tobacco: Never Substance Use Topics Alcohol use: No Drug use: No ALLERGIES Allergen Reactions Demoral [Meperidine] Mental Status Change Topamax [Topiramate] Other: See Comments Unknown Dilaudid [Hydromorp* Shortness of Breath Current Outpatient Medications Medication Sig Dispense Refill hydroCHLOROthiazide (HYDRODIURIL, ESIDRIX) 12.5 mg capsule Take 1 capsule by mouth once daily. 30 capsule 0 omeprazole (PRILOSEC) 20 mg capsule Take 1 capsule by mouth once daily. 30 capsule 0 metoprolol succinate ER (TOPROL XL) 25 mg 24 hr tablet Take 1 tablet by mouth once daily. 30 tablet 0 levonorgestrel (LILETTA INTRAUTERINE) by INTRAUTERINE route. busPIRone (BUSPAR) 5 mg tablet Take 2 tablets by mouth three times daily. [facility] traZODone (DESYREL) 50 mg tablet Take 1 tablet by mouth daily at bedtime. [facility] 30 tablet 1 meloxicam (MOBIC) 15 mg tablet Take 1 tablet by mouth once daily. Take with food. (Patient not taking: Reported on 09/11/2022) 30 tablet 5 No current facility-administered medications for this visit. OBJECTIVE: BP 124/90 Pulse 93 Temp 36.7 ?C (98 ?F) (Tympanic) Resp 16 Wt 134.4 kg (296 lb 6.4 oz) LMP (LMP Unknown) SpO2 99% BMI 48.57 kg/m? ROS: All systems reviewed and are otherwise negative Constitutional: Well developed, well nourished, AANDO X3. ENT: Head is atraumatic, airway patent, mucosal membranes moist Neck: full ROM, no meningeal signs Cardiac: heart tones regular rate and rhythm Respiratory: lung CTA : no CVA tenderness MS: moves all extremities, no deformities noted Neuro: GCS 15 no focal deficits Skin: warm and dry with out rash, lesion or ecchymosis Psych: alert appropriate, speech clear Diagnostic testing: COVID/ Influenza A and B testing performed and results will be complete in the next 24-72 hours. The patient will be notified of the results in My Chart. MDM: Patient presented to the [facility] today for COVID and Influenza testing. Vital signs were evaluated and found to be within normal limits. Matilde Deshpande was in no acute distress. We discussed the COVID results will be back in the next 1-2 days. In accordance with the CDC guidelines, Matilde Deshpande was instructed to quarantine, if indicated, based on symptoms and exposure. We have discussed over the counter medications to use for their symptoms. They will follow-up with their family doctor in the next 2-3 days. If symptoms worsen they will go straight to the emergency department for further evaluation and treatment. They voiced understanding of the plan of care and are in agreement. ASSESSMENT/PLAN: 1. Exposure to 2019 novel coronavirus - ICD9: V01.79, ICD10: Z20.822 - COVID WITH FLUA+B, ROUTINE Bernadine Hanson [facility] History of Present illness Narrative* Bernadine Hanson APRN.BALAJI - 09/11/2022 10:24 AM EST SUBJECTIVE: Matilde Deshpande is a 27 year old female. Who presents today with cough, fatigue, body aches, chills.Symptoms started last week. She has been exposed to others who are sick. She had a + covid test at home and needs a test for work. HPI PAST MEDICAL HISTORY Diagnosis Date Anxiety and depression 03/04/2017 Seeing Chalo Marcelino at the [facility]. Atypical nevus 2021 left upper back medially near neck: Melanocytic nevous excised 08/2021 Condyloma acuminata 12/21/2014 Ex-smoker 2021 Family history of brain tumor 06/08/2017 Sister Simi (is a [facility] tumor) Headache, unspecified headache type 06/08/2017 Liver lesion, left lobe 03/04/2017 Per hepatology 03/20/2017 benign and no further work up needed. Morbid obesity (HCC) 06/08/2017 Morbid obesity (HCC) 06/08/[address] [facility] Mucous retention cyst of maxillary sinus 06/17/2017 large on Rt Obesity, Class III, BMI >= 40 03/19/2020 depression 2013 TOA (tubo-ovarian abscess) 09/08/2014 Well adult exam 2021 Last done: 2021 FAMILY HISTORY Adopted: Yes Problem Relation Age of Onset Coronary Artery Disease Mother 53 other (brain tumor) Sister Cancer Maternal Aunt Social History Tobacco Use Smoking status: Former Smokeless tobacco: Never Substance Use Topics Alcohol use: No Drug use: No ALLERGIES Allergen Reactions Demoral [Meperidine] Mental Status Change Topamax [Topiramate] Other: See Comments Unknown Dilaudid [Hydromorp* Shortness of Breath Current Outpatient Medications Medication Sig Dispense Refill hydroCHLOROthiazide (HYDRODIURIL, ESIDRIX) 12.5 mg capsule Take 1 capsule by mouth once daily. 30 capsule 0 omeprazole (PRILOSEC) 20 mg capsule Take 1 capsule by mouth once daily. 30 capsule 0 metoprolol succinate ER (TOPROL XL) 25 mg 24 hr tablet Take 1 tablet by mouth once daily. 30 tablet0 levonorgestrel (LILETTA INTRAUTERINE) by INTRAUTERINE route. busPIRone (BUSPAR) 5 mg tablet Take 2 tablets by mouth three times daily. [facility] traZODone (DESYREL) 50 mg tablet Take 1 tablet by mouth daily at bedtime. [facility] 30 tablet 1 meloxicam (MOBIC) 15 mg tablet Take 1 tablet by mouth once daily. Take with food. (Patient not taking: Reported on 09/11/2022) 30 tablet 5 No current facility-administered medications for this visit. OBJECTIVE: BP 124/90 Pulse 93 Temp 36.7 C (98 F) (Tympanic) Resp 16 Wt 134.4 kg (296 lb 6.4 oz) LMP (LMP Unknown) SpO2 99% BMI 48.57 kg/m ROS: All systems reviewed and are otherwise negative Constitutional: Well developed, well nourished, A&O X3. ENT: Head is atraumatic, airway patent, mucosal membranes moist Neck: full ROM, no meningeal signs Cardiac: heart tones regular rate and rhythm Respiratory: lung CTA : no CVA tenderness MS: moves all extremities, no deformities noted Neuro: GCS 15 no focal deficits Skin: warm and dry with out rash, lesion or ecchymosis Psych: alert appropriate, speech clear Diagnostic testing: COVID/ Influenza A and B testing performed and results will be complete in the next 24-72 hours. The patient will be notified of the results in My Chart. MDM: Patient presented to the [facility] today for COVID and Influenza testing. Vital signs were evaluated and found to be within normal limits. Matilde Deshpande was in no acute distress. We discussed theCOVID results will be back in the next 1-2 days. In accordance with the CDC guidelines, Matilde Deshpande was instructed to quarantine, if indicated, based on symptoms and exposure. We have discussed over the counter medications to use for their symptoms. They will follow-up with their family doctor in the next 2-3 days. If symptoms worsen they will go straight to the emergency department for further evaluation and treatment. They voiced understandingof the plan of care and are in agreement. ASSESSMENT/PLAN: 1. Exposure to 2019 novel coronavirus - ICD9: V01.79, ICD10: Z20.822 - COVID WITH FLUA+B, ROUTINE Bernadine Hanson APRN.BALAJI documented in this encounterC[facility]12[facility] Miscellaneous Notes* Telephone Encounter - Dena Moore LPN - 08/21/2022 1:51 PM EST 3rd attempt to reach pt by phone without success. No voicemail set up. Letter mailed to pt. Dena Moore LPN * Telephone Encounter - Dena Moore LPN - 08/20/2022 8:58 AM EST Attempted to reach pt by phone without success, No voicemail set up. Try later. Dena Moore LPN * Telephone Encounter - Dena Moore LPN - 08/19/2022 2:33 PM EST Attempted to reach pt without success, no voice mail set up. Try later. * Telephone Encounter - Carlos Oquendo MD - 08/18/2022 4:47 PM EST Et patient know her scripts were filled for 30 days. She was supposed to f/u routine in 01/2022 and it appears this was cancelled on our end but then she never rescheduled. Needs seen for a routine exam. The following approved medication requests have been transmitted electronically. Requested Prescriptions Signed Prescriptions Disp Refills hydroCHLOROthiazide (HYDRODIURIL, ESIDRIX) 12.5 mg capsule 30 capsule 0 Sig: Take 1 capsule by mouth once daily. Authorizing Provider: CARLOS OQUENDO omeprazole (PRILOSEC) 20 mg capsule 30 capsule 0 Sig: Take 1 capsule by mouth once daily. Authorizing Provider: CARLOS OQUENDO metoprolol succinate ER (TOPROL XL) 25 mg 24 hr tablet 30 tablet 0 Sig: Take 1 tablet by mouth once daily. Authorizing Provider: CARLOS OQUENDO MD * Telephone Encounter - Lewis Herrera LPN - 08/18/2022 3:24 PM EST Last refill 02/05/22 Qty: 30 with 5 refills FREDY 09/13/21 had suture removal 09/27/21 NOV none scheduled Lewis Herrera LPN * Telephone Encounter - Jessenia Sahu Pss - 08/18/2022 1:20 PM EST Patient has been identified by name and date of : Yes Requested Prescriptions Pending Prescriptions Disp Refills hydroCHLOROthiazide (HYDRODIURIL, ESIDRIX) 12.5 mg capsule 30 capsule 5 Sig: Take 1 capsule by mouth once daily. omeprazole (PRILOSEC) 20 mg capsule 30 capsule 5 Sig: Take 1 capsule by mouth once daily. metoprolol succinate ER (TOPROL XL) 25 mg 24 hr tablet 30 tablet 5 Sig: Take 1 tablet by mouth once daily. RX INSTRUCTIONS: Patient aware RX will be sent to pharmacy. No need to notify patient. Jessenia Sahu Pss documented in this encounterCincinnati [facility]11-22-2022 History of Present illness Narrative* Jerry Ahmadi APRN.BINDERY CUTTER OPERATOR - 07/22/2022 5:31 PM EST Subjective HPI HPI Matilde Deshpande is a 26 year old female who presents today for CC of right shoulder pain and elbow pain after fall today. Has tried nothing for relief. Symptoms are worsened by nothing. Denies history of surgery or injury to right upper extremity. Denies numbness and tingling of right upper extremity. .Patient presents with: Shoulder Injury: right shoulder and elbow pain x this am, fell down stairs PAST MEDICAL HISTORY Diagnosis Date Anxiety and depression 03/04/2017 [facility] Atypical nevus 2021 left upper back medially near neck: Melanocytic nevous excised 08/2021 Condyloma acuminata 12/21/2014 Ex-smoker 2021 Family history of brain tumor 06/08/2017 Sister Simi (is a [facility] tumor) Headache, unspecified headache type 06/08/2017 Liver lesion, left lobe 03/04/2017 Per hepatology 03/20/2017 benign and no further work up needed. Morbid obesity (HCC) 06/08/2017 Morbid obesity (HCC) 06/08/[address] [facility] Mucous retention cyst of maxillary sinus 06/17/2017 large on Rt Obesity, Class III, BMI >= 40 03/19/2020 depression 2013 TOA (tubo-ovarian abscess) 09/08/2014 Well adult exam 2021 Last done: 2021 PAST SURGICAL HISTORY Procedure Laterality Date ESOPHAGOGASTRODUODENOSCOPY TRANSORAL DIAGNOSTIC 05/04/2018 EGD EXTRACTION, ERUPTED TOOTH OR EXPOSED ROOT (ELEVATION AND/OR FORCEPS REMOVAL) 2016 PAST SURGICAL HISTORY OF 2002 cyst taken of back of both legs PAST SURGICAL HISTORY OF 2016 left oopherectomy secondary to ectopic. TONSILLECTOMY HX 2016 ALLERGIES Demoral [Meperidine], Topamax [Topiramate], and Dilaudid [Hydromorphone (Bulk)] MEDICATIONS levonorgestrel (LILETTA INTRAUTERINE) by INTRAUTERINE route. omeprazole (PRILOSEC) 20 mg capsule Take 1 capsule by mouth once daily. hydroCHLOROthiazide (HYDRODIURIL, ESIDRIX) 12.5 mg capsule Take 1 capsule by mouth once daily. metoprolol succinate ER (TOPROL XL) 25 mg 24 hr tablet Take 1 tablet by mouth once daily. meloxicam (MOBIC) 15 mg tablet Take 1 tablet by mouth once daily. Take with food. busPIRone (BUSPAR) 5 mg tablet Take 2 tablets by mouth three times daily. [facility] traZODone (DESYREL) 50 mg tablet Take 1 tablet by mouth daily at bedtime. [facility] FAMILY HISTORY Adopted: Yes Problem Relation Age of Onset Coronary Artery Disease Mother 53 other (brain tumor) Sister Cancer Maternal Aunt Social History Tobacco Use Smoking status: Former Smokeless tobacco: Never Substance Use Topics Alcohol use: No Drug use: No ROS Objective Blood pressure 122/72, pulse 76, temperature 36.6 C (97.8 F), resp. rate 16, weight (!) 136.5 kg (301 lb), last menstrual period 04/14/2022, SpO2 96 %. Physical Exam Constitutional: General: She is not in acute distress. Appearance: She is not toxic-appearing or diaphoretic. HENT: Head: Normocephalic and atraumatic. Cardiovascular: Pulses: Radial pulses are 2+ on the right side. Pulmonary: Effort: Pulmonary effort is normal. No accessory muscle usage or respiratory distress. Musculoskeletal: Right shoulder: Tenderness and bony tenderness present. No swelling, deformity, effusion, laceration or crepitus. Decreased range of motion. Decreased strength. Normal pulse. Right elbow: No swelling, deformity, effusion or lacerations. Normal range of motion. Tenderness present in radial head. Neurological: Mental Status: She is alert and oriented to person, place, and time. ASSESSMENT/PLAN: 1. Right elbow pain - ICD9: 719.42, ICD10: M25.521 (primary diagnosis) -no bony abnormality noted on xray -Rest, Ice, Compression, Elevation discussed -follow up with primary care if symptoms persist/worsen in 10-14 days Sling provided for comfort. - XR ELBOW SPECIAL VIEWS AP/LAT/OTHER RIGHT - XR SHOULDER GENERAL 3V OR MORE AP/TRUE AP/OTHER RIGHT - PREDNISONE 10 MG TABLET 2. Acute pain of right shoulder - ICD9: 719.41, ICD10: M25.511 -no bony abnormality noted on xray -Rest, Ice, Compression, Elevation discussed -follow up with primary care if symptoms persist/worsen in 10-14 days Sling provided for comfort. Agrees to plan Jerry Ahmadi APRN.BALAJI documented in this encounterCincinnati [facility]09-22-2022 History of Present illness Narrative* Melvi Novoa APRN.BINDERY CUTTER OPERATOR - 05/22/2022 12:32 PM EDT CC: Patient presents with: Urinary Problem: Urgency, burning with urination x2 wks. HPI Matilde Deshpande is a 26 year old female who presents with complaint of possible UTI. These symptoms have been present for 14 days. Associated symptoms: burning and frequency Denies: fever, chills, sweats, and flank pain Treatments: nothing The ROS was otherwise negative. PMH, Medications, labs, allergies, and recent past visits with PCP were reviewed and updated as able. PHYSICAL EXAM: BP 148/90 Pulse 85 Temp 36.6 C (97.8 F) Resp 18 LMP 04/14/2022 SpO2 98% General: Well appearing and alert CV: Regular rate and rhythm without obvious murmur Lungs: clear to auscultation bilaterally Back: straight and symmetric Abdomen: soft, mildly tender over lower abdomen , nondistended PAST MEDICAL HISTORY Diagnosis Date Anxiety and depression 03/04/2017 [facility]. Atypical nevus 2021 left upper back medially near neck: Melanocytic nevous excised 08/2021 Condyloma acuminata 12/21/2014 Ex-smoker 2021 Family history of brain tumor 06/08/2017 Sister Simi (is a [facility] tumor) Headache, unspecified headache type 06/08/2017 Liver lesion, left lobe 03/04/2017 Per hepatology 03/20/2017 benign and no further work up needed. Morbid obesity (HCC) 06/08/2017 Morbid obesity (HCC) 06/08/[address] [facility] Mucous retention cyst of maxillary sinus 06/17/2017 large on Rt Obesity, Class III, BMI >= 40 03/19/2020 depression 2013 TOA (tubo-ovarian abscess) 09/08/2014 Well adult exam 2021 Last done: 2021 PAST SURGICAL HISTORY Procedure Laterality Date ESOPHAGOGASTRODUODENOSCOPY TRANSORAL DIAGNOSTIC 05/04/2018 EGD EXTRACTION, ERUPTED TOOTH OR EXPOSED ROOT (ELEVATION AND/OR FORCEPS REMOVAL) 2015 PAST SURGICAL HISTORY OF 2002 cyst taken of back of both legs PAST SURGICAL HISTORY OF 2016 left oopherectomy secondary to ectopic. TONSILLECTOMY HX 2016 ALLERGIES Demoral [Meperidine], Topamax [Topiramate], and Dilaudid [Hydromorphone (Bulk)] MEDICATIONS levonorgestrel (LILETTA INTRAUTERINE) by INTRAUTERINE route. omeprazole (PRILOSEC) 20 mg capsule Take 1 capsule by mouth once daily. hydroCHLOROthiazide (HYDRODIURIL, ESIDRIX) 12.5 mg capsule Take 1 capsule by mouth once daily. metoprolol succinate ER (TOPROL XL) 25 mg 24 hr tablet Take 1 tablet by mouth once daily. meloxicam (MOBIC) 15 mg tablet Take 1 tablet by mouth once daily. Take with food. busPIRone (BUSPAR) 5 mg tablet Take 2 tablets by mouth three times daily. [facility] traZODone (DESYREL) 50 mg tablet Take 1 tablet by mouth daily at bedtime. [facility] FAMILY HISTORY Adopted: Yes Problem Relation Age of Onset Coronary Artery Disease Mother 53 other (brain tumor) Sister Cancer Maternal Aunt Social History Tobacco Use Smoking status: Former Smokeless tobacco: Never Substance Use Topics Alcohol use: No Drug use: No ASSESSMENT/PLAN: 1. Urgency of urination - ICD9: 788.63, ICD10: R39.15 - UA DIP, URINE (POC) Macrobid bid for 5 days. Prescription instructions reviewed with patient as applicable. Potential red flag symptoms discussed with the patient. Reviewed appropriate action plan to take if red flag symptoms occur. Patient agreeable to treatment plan. Melvi Novoa APRN.BALAJI documented in this encounterCincinnati [facility]06-07-2022 Miscellaneous Notes* Telephone Encounter - Emily Self LPN - 02/04/2022 4:21 PM EDT Pt calling for refills. FREDY: 09/27/21 NOV: None scheduled Last Refill: Hctz & omeprazole: 07/23/21 #30i 5 refills Metoprolol: 07/31/21 #30 5 refills Emily Self LPN documented in this encounterCinc[facility]06-04-2021 Miscellaneous Notes* Telephone Encounter - Reyna Calvert Ma - 02/01/2021 1:22 PM EDT Third attempt to contact patient phone off and vm is full Sent mychart requesting she call to speak to nurse Reyna Calvert Ma * Telephone Encounter - Reyna Calvert Ma - 01/30/2021 4:41 PM EDT Tried calling patient again phone was off and vm was full Reyna Calvert Ma * Telephone Encounter - Reyna Calvert Ma - 01/29/2021 3:34 PM EDT Tried calling patient but phone was off and vm was full Reyna Calvert Ma * Telephone Encounter - Carlos Oquendo MD - 01/29/2021 3:27 PM EDT Let patient know at this point I can't say if the was from either the HCTZ of the amoxacillin she was on. The only way to see if she has a true PCN allergy is to send her for testing. Otherwise I would have her stay off the HCTZ and if not taking the potassium she won't need it but she should of let us know right away she could not tolerate it since her potassium being too low or too high can have adverse affects on her heart rhythm. For her BP I can place her of aldactone a different type of water pill that wont lower potassium. If agrees I will send in a script and will need BP check in 4 weeks ( the BP check on 02/11/2021 can be cancelled). * Telephone Encounter - Kelli Palacios RN - 01/29/2021 12:51 PM EDT Patient reports pcp prescribed hctz and potassium 2 weeks ago. She only took 3 or 4 potassium pillsbecause they made her sick. She doesn't understand, how pcp thinks her potassium was low b/c of thehctz, as she started them both on the same day. Also completed amoxicillin Sat for a cyst on her neck. Yesterday woke up with rash on torso, arms. Looked like mosquito bites (no fluid in them). Was seen in yesterday, who informed her it's definitely an allergy (not bug bites), but they didn't know what to. did not think the rash was from AB, because it didn't look like that kind of rash. Last night her hands swelled up, and the rash spread to whole body. Was seen in [facility]. Instructed her to stop the hctz. Gave her pepcid, steroid, and benadryl. D/c'd home with prednisone pill to take daily for 5 days. Today completely fine. No rash. Hands are still a little swollen. Please advise patient. documented in this encounterCincinnati [facility] CenterEvaluation note* Diagnosis Urgency of urination- Primary documented in this encounter [facility]* Diagnosis Right elbow pain- Primary Pain in joint, upper arm Acute pain of right shoulder documented in this encounter [facility]* Diagnosis Exposure to 2019 novel coronavirus- Primary documented in this encounter [facility]* Diagnosis Hypertension, essential- Primary Unspecified essential hypertension Dyslipidemia Other and unspecified hyperlipidemia GERD without esophagitis Esophageal reflux Headache, unspecified headache type Anxiety and depression Dysthymic disorder Morbid obesity (HCC) Morbid obesity Obesity, Class III, BMI >= 40 Morbid obesity Hypersomnolence Hypersomnia, unspecified Snores Other dyspnea and respiratory abnormality Encounter for screening for diabetes mellitus Screening for diabetes mellitus documented in this encounter [facility]* Diagnosis Hypertension, essential- Primary Unspecified essential hypertension Chest wall mass Swelling, mass, or lump in chest Xiphoid prominence Other disorders of bone and cartilage documented in this encounter [facility]* Diagnosis Chest wall mass Swelling, mass, or lump in chest Xiphoid prominence Other disorders of bone and cartilage documented in this encounter [facility]* Diagnosis LIZZY (obstructive sleep apnea)- Primary Obstructive sleep apnea (adult) (pediatric) documented in this encounter [facility]* Diagnosis Psychological factors affecting morbid obesity (HCC)- Primary Psychic factors associated with diseases classified elsewhere documented in this encounter [facility]* Diagnosis Dysuria- Primary documented in this encounter [facility] Narrative No data available for this section [facility] Reason for referral (narrative)* Diagnostic Procedure Only (Urgent) - Closed Specialty Diagnoses / Procedures Referred By Contac t Referred To Contact XR IMAGING Diagnoses Right elbow pain Procedures XR SHOULDER GENERAL 3V OR MORE AP/TRUE AP/OTHER RIGHT RADEX SHOULDER COMPLETE MINIMUM 2 VIEWS Jerry Ahmadi APRN.CNP [address] [place] [address] Xr Imaging Referral ID Status Reason Start Date Expiration Date V isits Requested Visits Authorized [id number] Closed Auto-Generate d Referral 07/22/2022 08/21/2023 1 1 * Diagnostic Procedure Only (Urgent) - Closed Specialty Diagnoses / Procedures Referred By Contac t Referred To Contact XR IMAGING Diagnoses Right elbow pain Procedures XR ELBOW SPECIAL VIEWS AP/LAT/OTHER RIGHT RADEX ELBOW COMPLETE MINIMUM 3 VIEWS Jerry Ahmadi APRN.BINDERY CUTTER OPERATOR [address] [place] [address] Xr Imaging Referral ID Status Reason Start Date Expiration Date V isits Requested Visits Authorized [id number] Closed Auto-Generate d Referral 07/22/2022 08/21/2023 1 1 [facility] for referral (narrative)* Diagnostic Procedure Only (Routine) - Authorized Specialty Diagnoses / Procedures Referred By Contac t Referred To Contact [facility] Diagnoses Hypertension, essential Morbid obesity (HCC) Obesity, Class III, BMI 40-49.9 (morbid obesity) (HCC) Hypersomnolence Snores Procedures HOME SLEEP APNEA TEST (HSAT) SLEEP STD AIRFLOW HRT RATE&O2 SAT EFFORT UNATT Carlos Oquendo MD [address] [place] [address] Neurological [place] [address] [place] [address] Referral ID Status Reason Start Date Expiration Date Visits Requested Visits Authorized [id number] Authorized Auto-Generat ed Referral 12/26/2022 12/26/2023 1 1 [facility] for referral (narrative)* Diagnostic Procedure Only (Routine) - Authorized Specialty Diagnoses / Procedures Referred By Contac t Referred To Contact US IMAGING Diagnoses Chest wall mass Xiphoid prominence Procedures US CHEST WALL/SOFT TISSUE US CHEST REAL TIME W/IMAGE DOCUMENTATION Carol Giron PA-C [address] [place] [address] Us Imaging Referral ID Status Reason Start Date Expiration Date Visits Requested Visits Authorized [id number] Authorized Auto-Generat ed Referral 01/27/2023 02/26/2024 1 1 [facility] for referral (narrative)* Diagnostic Procedure Only (Routine) - Closed Specialty Diagnoses / Procedures Referred By Contac t Referred To Contact US IMAGING Diagnoses Chest wall mass Xiphoid prominence Procedures US CHEST WALL/SOFT TISSUE US CHEST REAL TIME W/IMAGE DOCUMENTATION Carol Giron PA-C [address] [place] [address] Us Imaging Referral ID Status Reason Start Date Expiration Date V isits Requested Visits Authorized [id number] Closed Auto-Generate d Referral 01/27/2023 02/26/2024 1 1 [facility] for visit Narrative* Diagnostic Procedure Only (Routine) - Closed Specialty Diagnoses / Procedures Referred By Contac t Referred To Contact US IMAGING Diagnoses Chest wall mass Xiphoid prominence Procedures US CHEST WALL/SOFT TISSUE US CHEST REAL TIME W/IMAGE DOCUMENTATION Carol Giron PA-C [address] [place] [address] Us Imaging Referral ID Status Reason Start Date Expiration Date V isits Requested Visits Authorized [id number] Closed Auto-Generate d Referral 01/27/2023 02/26/2024 1 1 [facility] Summary Purpose Family History No Family History Records FoundNo Family History Records FoundNo Family History Records FoundNo Family History Records FoundNo Family History Records FoundNo Family History Records FoundNo Family History Records FoundNo Family History Records FoundNo Family History Records Found Advance Directives No Advanced Directives Records FoundDocuments on File Type Date Recorded Patient Lath Hand Expl anation Advance Directive(s) 05/04/2018 9:30 AM Reason for Referral Specialty Diagnoses / Procedures Referred By Tracey t Referred To Contact Diagnoses LIZZY (obstructive sleep apnea) Procedures CONSULT TO SLEEP MEDICINE - ADULT OFFICE/OUTPATIENT [facility] 60-74 MINUTES Carlos Oquendo MD [address] [place] [address] Referral ID Status Reason Start Date Expiration Date Visits Requested Visits Authorized [id number] Authorized PCP Requested Referral 01/28/2023 01/28/2024 1 1 Additional Source Comments INFORMATION SOURCE (unrecogn ized section and content) DATE CREATED AUTHOR AUTHOR'S ORGANIZ ATION 05/17/2018 [facility] DATE CREATED AUTHOR AUTHOR'S ORGANIZ ATION 06/02/2019 [facility] DATE CREATED AUTHOR AUTHOR'S ORGANIZ ATION 05/16/2021 [facility] DATE CREATED AUTHOR AUTHOR'S ORGANIZ ATION 03/11/2022 [facility] DATE CREATED AUTHOR AUTHOR'S ORGANIZ ATION 02/09/2023 [facility] DATE CREATED AUTHOR AUTHOR'S ORGANIZ ATION 05/01/2023 [facility] ([place]) DATE CREATED AUTHOR AUTHOR'S ORGANIZ ATION 08/28/2023 [facility] DATE CREATED AUTHOR AUTHOR'S ORGANIZ ATION 08/29/2023 [facility] nter Source Comments (unrecognize d section and content) In the event this informatio n is protected by the Federal Confidentiality of Alcohol and Drug Abuse Patient Records regulations: The Federal rules restrict any use of the information to criminally investigate or prosecute any alcohol or drug abuse patient.[facility] Center[facility] the event this information is protected by the Federal Confidentiality of Alcohol and Drug Abuse Patient Records regulations: The Federal rules restrict any use of the information to criminally investigate or prosecute any alcohol or drug abuse patient.[facility] Center[facility] the event this information is protected by the Federal Confidentiality of Alcohol and Drug Abuse Patient Records regulations: The Federal rules restrict any use of the information to criminally investigate or prosecute any alcohol or drug abuse patient.[facility] CenterIn the event this information is protected by the Federal Confidentiality of Alcohol and Drug Abuse Patient Records regulations: The Federal rules restrict any use of the information to criminally investigate or prosecute any alcohol or drug abuse patient.[facility] CenterIn the event this information is protected by the Federal Confidentiality of Alcohol and Drug Abuse Patient Records regulations: The Federal rules restrict any use of the information to criminally investigate or prosecute any alcohol or drug abuse patient.[facility] CenterIn the event this information is protected by the Federal Confidentiality of Alcohol and Drug Abuse Patient Records regulations: The Federal rules restrict any use of the information to criminally investigate or prosecute any alcohol or drug abuse patient.[facility] CenterIn the event this information is protected by the Federal Confidentiality of Alcohol and Drug Abuse Patient Records regulations: The Federal rules restrict any use of the information to criminally investigate or prosecute any alcohol or drug abuse patient.[facility] CenterIn the event this information is protected by the Federal Confidentiality of Alcohol and Drug Abuse Patient Records regulations: The Federal rules restrict any use of the information to criminally investigate or prosecute any alcohol or drug abuse patient.[facility] CenterIn the event this information is protected by the Federal Confidentiality of Alcohol and Drug Abuse Patient Records regulations: The Federal rules restrict any use of the information to criminally investigate or prosecute any alcohol or drug abuse patient.[facility] CenterIn the event this information is protected by the Federal Confidentiality of Alcohol and Drug Abuse Patient Records regulations: The Federal rules restrict any use of the information to criminally investigate or prosecute any alcohol or drug abuse patient.[facility] CenterIn the event this information is protected by the Federal Confidentiality of Alcohol and Drug Abuse Patient Records regulations: The Federal rules restrict any use of the information to criminally investigate or prosecute any alcohol or drug abuse patient.[facility] CenterIn the event this information is protected by the Federal Confidentiality of Alcohol and Drug Abuse Patient Records regulations: The Federal rules restrict any use of the information to criminally investigate or prosecute any alcohol or drug abuse patient.[facility] CenterIn the event this information is protected by the Federal Confidentiality of Alcohol and Drug Abuse Patient Records regulations: The Federal rules restrict any use of the information to criminally investigate or prosecute any alcohol or drug abuse patient.[facility] CenterIn the event this information is protected by the Federal Confidentiality of Alcohol and Drug Abuse Patient Records regulations: The Federal rules restrict any use of the information to criminally investigate or prosecute any alcohol or drug abuse patient.[facility] CenterIn the event this information is protected by the Federal Confidentiality of Alcohol and Drug Abuse Patient Records regulations: The Federal rules restrict any use of the information to criminally investigate or prosecute any alcohol or drug abuse patient.[facility] CenterIn the event this information is protected by the Federal Confidentiality of Alcohol and Drug Abuse Patient Records regulations: The Federal rules restrict any use of the information to criminally investigate or prosecute any alcohol or drug abuse patient.[facility] CenterIn the event this information is protected by the Federal Confidentiality of Alcohol and Drug Abuse Patient Records regulations: The Federal rules restrict any use of the information to criminally investigate or prosecute any alcohol or drug abuse patient.[facility] CenterIn the event this information is protected by the Federal Confidentiality of Alcohol and Drug Abuse Patient Records regulations: The Federal rules restrict any use of the information to criminally investigate or prosecute any alcohol or drug abuse patient.[facility] Reason for Visit (unrecogniz ed section and content) Reason Onset Date Comments Refill Request 02/04/2022 Reason Comments Urinary Problem Urgency, burning wit h urination x2 wks. Reason Comments Shoulder Injury right shoulder and e lbow pain x this am, fell down stairs Reason Onset Date Comments Refill Request 08/18/2022 Reason Comments Cough Pt reported + home C ovid test 09/06/2022. nasal congestion Reason Comments Results Reason Onset Date Comments Refill Request 11/27/2022 Reason Comments Blood Pressure Reason Comments Recheck Blood pressure Reason Comments Results Reason Comments Obesity Reason Comments Urinary Problem Painful urination St arted 1 week ago Abdominal Pain Cramping Lower ABDSt arted last night Vaginal Problem Patient has an IUD a nd is worried that it might of moved Bleeding Patient states it only happens when she urinates Reason Comments ext results CT and ER reports Reason Onset Date Comments Refill Request 08/17/2023 Care Teams (unrecognized sec tion and content) Department Supervisor Relationship Specialty Start Date End Date Carlos Oquendo MD [address] [facility] [place] [address] PCP - General Family Practice 08/03/17 Department Supervisor Relationship Specialty Start Date End Date Carlos Oquendo MD [address] [place] [address] [place] [address] PCP - General Family Medicine 08/03/17 Department Supervisor Relationship Specialty Start Date End Date Carlos Oquendo MD [address] [place] [address] [place] [address] PCP - General Family Medicine 08/03/17 Department Supervisor Relationship Specialty Start Date End Date Carlos Oquendo MD [address] [place] [address] [place] [address] PCP - General Family Medicine 08/03/17 Department Supervisor Relationship Specialty Start Date End Date Carlos Oquendo MD [address] [place] [address] [place] [address] PCP - General Family Medicine 08/03/17 Department Supervisor Relationship Specialty Start Date End Date Carlos Oquendo MD [address] [place] [address] [place] [address] PCP - General Family Medicine 08/03/17 Department Supervisor Relationship Specialty Start Date End Date Carlos Oquendo MD [address] [place] [address] [place] [address] PCP - General Family Medicine 08/03/17 Department Supervisor Relationship Specialty Start Date End Date Carlos Oquendo MD [address] [place] [address] [place] [address] PCP - General Family Medicine 08/03/17 Department Supervisor Relationship Specialty Start Date End Date Carlos Oquendo MD [address] [place] [address] PCP - General Family Medicine 08/03/17 Department Supervisor Relationship Specialty Start Date End Date Carlos Oquendo MD [address] [place] [address] PCP - General Family Medicine 08/03/17 Department Supervisor Relationship Specialty Start Date End Date Carlos Oquendo MD [address] [place] [address] PCP - General Family Medicine 08/03/17 Department Supervisor Relationship Specialty Start Date End Date Carlos Oquendo MD [address] [place] [address] PCP - General Family Medicine 08/03/17 Department Supervisor Relationship Specialty Start Date End Date Carlos Oquendo MD [address] [place] [address] PCP - General Family Medicine 08/03/17 Department Supervisor Relationship Specialty Start Date End Date Carlos Oquendo MD [address] [place] [address] PCP - General Family Medicine 08/03/17 Department Supervisor Relationship Specialty Start Date End Date Carlos Oquendo MD [address] [place] [address] PCP - General Family Medicine 08/03/17 Care Team (unrecognized sect ion and content) Care Team Personnel Name: DESIRAE ST MD Member Role: Primary Care Physician Address: Address: [address] [place] [address] [place] [address] [place] Name: Etelvina Wiggins RN Position: ED RN Member Role: ED RN Name: MADDIE RUSSELL PA-C Position: P4 ED Advance Practicing Clinician Member Role: Physician Implementation Architect w/Rx Address: Address[facility] [address] [facility] [place], [place] [address] [[email or web address]] Name: Bernadine Harrison RN Position: ED RN Member Role: ED RN Name: JYOTSNA AG MD Position: ED Physician Member Role: ED Physician Address: Address: [address] [place], [place] [address] [[email or web address]] FOR RECORDS PERTAINING TO PATIENTS WHO ARE OR HAVE BEEN ENROLLED IN A CHEMICAL DEPENDENCY/SUBSTANCEABUSE PROGRAM, SOME INFORMATION MAY BE OMITTED. This clinical summary was aggregated from multiple sources. Caution should be exercised in using it in the provision of clinical care. This summary normalizes information from multiple sources, and as a consequence, information in this document may materially change the coding, format and clinical context of patient data. In addition, data may be omitted in some cases. CLINICAL DECISIONS SHOULD BE BASED ON THE PRIMARY CLINICAL RECORDS. [email or web address] [email or web address] provides no warranty or guarantee of the accuracy or completeness of information in this document.
--- NOTE | 2023-08-29 10:11 | EX.ED.DYSGE1 ---
HPI History of Present Illness Chief Complaint: General Illness Informant: patient Onset/Context/Timing Onset: Days (5 days) Narrative Narrative: Patient presents secondary to fever, cough, congestion has been ongoing for the past 5 days. She was seen in urgent care 2 days ago and diagnosed with a sinus infection. She was placed on azithromycin. Patient states her temperature yesterday was up to 104 and she has had body aches. She has never had this before with sinusitis and is concerned she may have bronchitis or pneumonia. [facility] Medical History Anxiety Hypertension Ovarian cyst Home Medications memantine 10 mg tablet 10 mg PO DAILY 04/11/20 [History Last Taken Unknown] omeprazole 20 mg capsule,delayed release 20 mg PO DAILY 04/11/20 [History Last Taken Unknown] trazodone 50 mg tablet 50 mg PO QHS 04/11/20 [History Last Taken Unknown] buspirone 10 mg tablet 10 mg PO BID 05/27/22 [History Last Taken Unknown] hydrochlorothiazide 12.5 mg capsule 12.5 mg PO DAILY 05/27/22 [History Last Taken Unknown] metoprolol succinate 25 mg tablet,extended release 24 hr 25 mg PO DAILY 05/27/22 [History Last Taken Unknown] ibuprofen 600 mg tablet 600 mg PO Q8H PRN PRN pain #20 TABLETS 01/21/23 [Rx Last Taken Unknown] ondansetron 4 mg disintegrating tablet 4 mg PO Q8H PRN PRN Nausea #10 tabs 04/28/23 [Rx Last Taken Unknown] oxycodone-acetaminophen 5 mg-325 mg tablet 1 tab PO Q6H PRN PRN Pain 3 days #12 TABLETS 04/28/23 [Rx Last Taken Unknown] Allergy/AdvReac Type Severity Reaction Status Date / Time hydromorphone HCl Allergy Severe Anaphylaxis Verified 07/01/23 07:26 [From Dilaudid] meperidine HCl [From Demerol] AdvReac PT STATES Verified 07/01/23 07:26 DOES NOT LIKE THE WAY IT MAKES HER FEEL Surgical History History of salpingectomy Hx of ovarian cystectomy Hx of tonsillectomy Social History Smoking Status: Former smoker ROS ROS ED Constitutional Constitutional ED: Reports fever(s); Denies chills Eyes Eyes: Denies change in vision or discharge from eye(s) ENT ENT ED: Reports rhinorrhea; Denies discharge from eye(s) or sore throat Cardiovascular Cardiovascular: Denies chest pain Respiratory/Chest Respiratory/Chest: Reports cough and dyspnea Gastrointestinal Gastrointestinal: Denies abdominal pain, diarrhea, nausea or vomiting Genitourinary Genitourinary ED: Denies difficulty urinating or dysuria Musculoskeletal Musculoskeletal: Reports myalgias; Denies back pain or extremity pain Integumentary Denies Abrasions or rash Neurologic Neurologic: Reports weakness; Denies headache(s) Psychiatric Psychiatric: Denies anxiety or depression Endocrine Endocrinology: Denies polydipsia or polyuria Allergic/Immunologic Allergic/Immunologic ED: Denies lip swelling or urticaria EXAM Physical Exam Const Vital Signs: 08/29/23 09:16 08/29/23 09:41 Temperature 96.4 F L Temperature Source Temporal Pulse Rate 85 Respiratory Rate 16 Respiratory Effort Normal Non-Labored Respiratory Pattern Normal Blood Pressure 134/83 H Blood Pressure Mean 100 Pulse Ox 96 Oxygen Delivery Method Room Air Positive well nourished and well developed General Appearance ED: well developed HEENT Reports moist mucous membranes Eyes EOMs intact bilaterally Chest Wall inspection of chest normal and palpation of chest normal Resp normal respiratory effort and clear to auscultation bilaterally Cardio regular rate and regular rhythm GI non-tender Palpation: soft Extremity normal to inspection Neuro oriented x3 and no sensory deficits noted Motor Exam: strength 5/5 throughout Psych mental status grossly normal Skin no rashes or lesions noted MDM MDM MDM Narrative Medical decision making narrative: Swabs for COVID, influenza, and RSV will be obtained. Portable chest x-ray obtained to evaluate for possible infiltrate. Treatment and Re-Evaluation :: Portable chest x-ray per my interpretation reveals no evidence of infiltrate. COVID test is negative influenza test is positive for influenza B. RSV test is negative. Test results are discussed with the patient. She will continue supportive care. Return instructions provided. Discharge Plan Triage Chief Complaint: General Illness ED Provider: Evelyn Win Dx/Rx/DC Orders Clinical Impression: Influenza Instructions: ED Influenza (Adult) Prescriptions: No Action trazodone 50 MG tablet 50 mg PO QHS omeprazole 20 MG capsule,delayed release(DR/EC) 20 mg PO DAILY memantine 10 MG tablet 10 mg PO DAILY buspirone 10 mg tablet 10 mg PO BID Patient Comments: TAKE 1 TABLET BY MOUTH TWICE DAILY hydrochlorothiazide 12.5 mg capsule 12.5 mg PO DAILY Patient Comments: TAKE 1 CAPSULE BY MOUTH ONCE DAILY metoprolol succinate 25 mg tablet extended release 24 hr 25 mg PO DAILY Patient Comments: TAKE 1 TABLET BY MOUTH ONCE DAILY ibuprofen 600 mg tablet 600 mg PO Q8H PRN PRN (Reason: pain) Qty: 20 0RF oxycodone-acetaminophen [oxycodone-acetaminophen] 5-325 mg tablet 1 tab PO Q6H PRN PRN (Reason: Pain) 3 Days Qty: 12 0RF ondansetron [ondansetron] 4 mg tablet,disintegrating 4 mg PO Q8H PRN PRN (Reason: Nausea) Qty: 10 0RF Primary Care Provider: Carlos Zavala Referrals: Carlos Zavala MD [Primary Care Provider] - 1 Week Disposition Disposition: Home, Self Care
--- NOTE | 2023-08-29 10:26 | RAD_ITS ---
EXAM: XR CHEST, 1 VIEW CLINICAL INDICATION: cough TECHNIQUE: Frontal view of the chest. COMPARISON: 07/01/2023 FINDINGS: LUNGS AND PLEURAL SPACES: Minimal bibasilar pulmonary opacities may be atelectasis or perhaps pneumonia. No pneumothorax. No effusion. HEART: No significant abnormality. Cardiac silhouette not enlarged. MEDIASTINUM: Central airways and mediastinal contour are unremarkable. BONES/JOINTS: No significant abnormality. No acute fracture. SOFT TISSUES: No significant abnormality. RAD/Chest 1 View (Portable) IMPRESSION: Minimal bibasilar pulmonary opacities may be atelectasis or perhaps pneumonia. Electronically Signed: Oracio Bergman DO at 11:18 EST ,
[2023-08-29 11:28] VITALS: PULSE 89; RESP 18; O2SAT 100
== END 2023-08-29 11:29 | disposition home or self-care (01) ==
PROVIDERS: Emergency Provider Emergency Medicine; PCP Family Medicine; Visit Provider Emergency Medicine
DX: J10.1 Influenza due to other identified influenza virus with other respiratory manifestations (principal); Z87.891 Personal history of nicotine dependence; I10 Essential (primary) hypertension; Z79.899 Other long term (current) drug therapy; F41.9 Anxiety disorder, unspecified
CPT/HCPCS: 71045; 87428; 87634; 99282

== ENCOUNTER 2024-02-05 10:11 | Emergency (ER) | payer SELFPAY ==
[2024-02-05 10:11] VITALS: BP 152/107; PULSE 71; RESP 17; TEMP 36.1; O2SAT 96
--- NOTE | 2024-02-05 10:19 | EX.ED.VIS.EY ---
HPI History of Present Illness Chief Complaint: Eye Problem Detail of Chief Complaint: Left eye pain and blurred vision Informant: patient Narrative Narrative: Patient presents the emergency department complaint of left eye pain and some blurred vision. Patient states that she was cooking dinner last night making some hamburgers when the oil splashed up into her left eye. Patient complains of blurred vision today and some photophobia. She does not wear contacts. She does not wear glasses. [facility] Medical History Anxiety Hypertension Ovarian cyst Home Medications ?Medication ?Instructions ?Recorded ?Last Taken ?Type memantine 10 mg tablet 10 mg PO DAILY 04/11/20 Unknown History omeprazole 20 mg capsule,delayed 20 mg PO DAILY 04/11/20 Unknown History release trazodone 50 mg tablet 50 mg PO QHS 04/11/20 Unknown History buspirone 10 mg tablet 10 mg PO BID 05/27/22 Unknown History hydrochlorothiazide 12.5 mg capsule 12.5 mg PO DAILY 05/27/22 Unknown History metoprolol succinate 25 mg 25 mg PO DAILY 05/27/22 Unknown History tablet,extended release 24 hr ibuprofen 600 mg tablet 600 mg PO Q8H PRN PRN pain #20 01/21/23 Unknown Rx TABLETS ondansetron 4 mg disintegrating 4 mg PO Q8H PRN PRN Nausea #10 tabs 04/28/23 Unknown Rx tablet oxycodone-acetaminophen 5 mg-325 1 tab PO Q6H PRN PRN Pain 3 days 04/28/23 Unknown Rx mg tablet #12 TABLETS Allergy/AdvReac Type Severity Reaction Status Date / Time hydromorphone HCl (From Allergy Severe Anaphylaxis Verified 07/01/23 07:26 Dilaudid) meperidine HCl (From Demerol) AdvReac PT STATES Verified 07/01/23 07:26 DOES NOT LIKE THE WAY IT MAKES HER FEEL Surgical History History of salpingectomy Hx of ovarian cystectomy Hx of tonsillectomy Social History Smoking Status: Former smoker ROS ROS ED Review of Systems ROS Unobtainable: other Constitutional Constitutional ED: Reports lethargy; Denies chills, fever(s), sweats or weight loss Eyes Eyes: Reports blurry vision and other Details: Left eye pain ; Denies change in vision or diplopia ENT ENT ED: Denies rhinorrhea or sore throat Cardiovascular Cardiovascular: Reports chest pain and racing heartbeat; Denies orthopnea Respiratory/Chest Respiratory/Chest: Reports dyspnea and dyspnea on exertion; Denies cough, orthopnea or sputum Gastrointestinal Gastrointestinal: Denies abdominal pain, diarrhea, nausea or vomiting Genitourinary Genitourinary ED: Denies dysuria, hematuria or urinary frequency Musculoskeletal Musculoskeletal: Denies arthralgias, back pain, myalgias or neck pain Integumentary Denies abscess, Abrasions or rash Neurologic Neurologic: Denies headache(s) or weakness Psychiatric Psychiatric: Denies anxiety, depression or suicidal thoughts Endocrine Endocrinology: Denies polydipsia, polyphagia or polyuria Hematologic/Lymphatic Hematologic/Lymphatic: Denies easy bleeding, easy bruising or lymphadenopathy Allergic/Immunologic Allergic/Immunologic ED: Denies mouth swelling, tongue swelling or urticaria EXAM Physical Exam Const Vital Signs: 02/05/24 10:11 Temperature 97 F L Temperature Source Temporal Pulse Rate 71 Respiratory Rate 17 Blood Pressure 152/107 H Blood Pressure Mean 122 Pulse Ox 96 Positive well nourished and well developed General Appearance ED: well developed and NAD HEENT Reports TM's clear and moist mucous membranes HEENT Narrative: Mild conjunctival erythema lateral aspect of the left eye. normocephalic and atraumatic; Negative for trauma or tenderness Tympanic Membrane ED: Yes TM's clear Eyes PERRL and EOMs intact bilaterally General Eye ED: Negative for pale conjunctiva or scleral icterus Neck no lymphadenopathy, supple and no JVD General: Negative for tenderness Chest Wall inspection of chest normal and palpation of chest normal Chest: Negative for tenderness Resp normal respiratory effort and clear to auscultation bilaterally Effort and Inspection: Negative for respiratory distress or pain with movement Auscultation: Negative for rhonchi, wheezes or diminished lung sounds Cardio regular rate, regular rhythm, S1 normal heart sound, S2 normal heart sound and no murmurs Peripheral Pulses: pulses 2+ throughout GI normal to inspection, nondistended, normoactive bowel sounds, soft to palpation, non-tender, non-distended and no masses Back/Spine no CVA tenderness and no thoracic nor lumbar tenderness Extremity normal to inspection General Extremety ED: Negative for edema General Extremity: Negative for edema Neuro oriented x3, CN's II-XII intact bilaterally, no sensory deficits noted and gait normal Sensorium / Orientation: awake, alert, oriented to person, oriented to place and oriented to time Motor Exam: strength 5/5 throughout and strength abnormal Psych mental status grossly normal Skin no rashes or lesions noted and no wounds MDM MDM MDM Narrative Medical decision making narrative: Patient presents with injury to the left eye. She had hot grease splashed in it last evening. Visual acuity shows 20/40 left eye and 20/20 right eye. I did delvis the eyelids and there was no foreign bodies. Patient had tetracaine applied to the left eye. I stained the eye with fluorescein and do not appreciate any obvious corneal abrasions. Discussed case with the [facility] Dr. Fragoso and the office and asked that patient be discharged directly to their office for evaluation and definitive care. Discharge Plan Triage Chief Complaint: Eye Problem ED Provider: John Smalls Dx/Rx/DC Orders Clinical Impression: Acute eye pain Instructions: Corneal Injury, ED Eye Exposure, Chemical Prescriptions: No Action trazodone 50 MG tablet 50 mg PO QHS omeprazole 20 MG capsule,delayed release(DR/EC) 20 mg PO DAILY memantine 10 MG tablet 10 mg PO DAILY buspirone 10 mg tablet 10 mg PO BID Patient Comments: TAKE 1 TABLET BY MOUTH TWICE DAILY hydrochlorothiazide 12.5 mg capsule 12.5 mg PO DAILY Patient Comments: TAKE 1 CAPSULE BY MOUTH ONCE DAILY metoprolol succinate 25 mg tablet extended release 24 hr 25 mg PO DAILY Patient Comments: TAKE 1 TABLET BY MOUTH ONCE DAILY ibuprofen 600 mg tablet 600 mg PO Q8H PRN PRN (Reason: pain) Qty: 20 0RF oxycodone-acetaminophen [oxycodone-acetaminophen] 5-325 mg tablet 1 tab PO Q6H PRN PRN (Reason: Pain) 3 Days Qty: 12 0RF ondansetron [ondansetron] 4 mg tablet,disintegrating 4 mg PO Q8H PRN PRN (Reason: Nausea) Qty: 10 0RF Primary Care Provider: Carlos Zavala Referrals: Carlos Zavala MD [Primary Care Provider] - Alon Adrian MD [Med Staff - Active Staff] - As soon as possible Print Language: Luxembourgish
[2024-02-05] MEDS: Fluorescein 1 MG STRIP 1 STRIP LEFT EYE (10:22)
[2024-02-05] MEDS: Tetracaine 0.5% Ophthalmic Bottle 1 DRP LEFT EYE (10:22)
== END 2024-02-05 10:54 | disposition home or self-care (01) ==
PROVIDERS: Emergency Provider Emergency Medicine; PCP Family Medicine; Visit Provider Emergency Medicine
DX: H57.12 Ocular pain, left eye (principal); Z87.891 Personal history of nicotine dependence; H53.8 Other visual disturbances; I10 Essential (primary) hypertension; F41.9 Anxiety disorder, unspecified
CPT/HCPCS: 99282

== ENCOUNTER 2024-05-04 10:01 | Emergency (ER) | payer SELFPAY ==
[2024-05-04 10:02] VITALS: BP 154/100; PULSE 75; RESP 18; TEMP 36.4; O2SAT 96; BMI 46.3
--- NOTE | 2024-05-04 10:09 | RAD_ITS ---
STUDY: X-RAY - LEFT FOOT CLINICAL: Female, 28 years old. Pain following a recent injury. TECHNIQUE: 3 view(s) of the foot. COMPARISON: None. FINDINGS: Normal talus, calcaneus, and tarsal bones. Normal visualized subtalar, talonavicular, calcaneocuboid, tarsal and tarsometatarsal articulations. Normal metatarsi. Normal metatarsophalangeal joint of the great toe. Normal tibial and fibular sesamoid bones. Normal interphalangeal joint of the great toe. Normal phalanges of the great toe. Normal second through fifth metatarsophalangeal joints. Normal interphalangeal joints and phalanges of the lesser toes. The soft tissue structures are unremarkable. RAD/Foot min 3 Views IMPRESSION: Normal x-ray examination of the foot. Electronically Signed: Saul Ahmadi MD at 10:30 EDT ,
--- NOTE | 2024-05-04 10:09 | RAD_ITS ---
STUDY: X-RAY - LEFT ANKLE REASON FOR EXAM: Female, 28 years old. Injury TECHNIQUE: 3 view(s) of the ankle. COMPARISON: None. FINDINGS: Normal visualized distal tibia and fibula. Normal medial and lateral malleoli. Normal tibiotalar articulation and ankle mortise. Normal visualized talus and calcaneus. The visualized subtalar, talonavicular, calcaneocuboid and tarsal articulations are normal. The soft tissue structures are unremarkable. RAD/Ankle min 3 Views IMPRESSION: Normal x-ray examination of the ankle. Electronically Signed: Saul Ahmadi MD at 10:36 EDT ,
--- NOTE | 2024-05-04 10:17 | ED.VIS.LOWEX ---
HPI History of Present Illness HPI Narrative: 28-year-old female history of hypertension. [place] a pond on [place]. Jumped off a dock it was more shallow than she expected when she jumped and she injured her left foot and lower leg and ankle. She can walk on it but is painful. No prior history of fracture or surgery to the left lower leg. Denies other complaints. Chief Complaint: Lower Extremity Injury Informant: patient Occured/Mechanism Mechanism/Context: Yes injury and Yes blunt trauma Onset/Context/Timing Onset: Days Context: Sudden Onset Timing: Continuous Quality of Pain: Aching Current Severity: Mild Maximum Severity: Mild Associated Symptoms Associated Symptoms: Negative for Parasthesia, Weakness or Loss of Funtion Narrative Narrative: 28-year-old injured her left lower leg ankle and foot when jumping in a pond 3 days ago. Recent Illness/Hospitalization: No PFSH PFSH Medical History Anxiety Hypertension Ovarian cyst Home Medications ?Medication ?Instructions ?Recorded ?Last Taken ?Type memantine 10 mg tablet 10 mg PO DAILY 04/11/20 Unknown History omeprazole 20 mg capsule,delayed 20 mg PO DAILY 04/11/20 Unknown History release trazodone 50 mg tablet 50 mg PO QHS 04/11/20 Unknown History buspirone 10 mg tablet 10 mg PO BID 05/27/22 Unknown History hydrochlorothiazide 12.5 mg capsule 12.5 mg PO DAILY 05/27/22 Unknown History metoprolol succinate 25 mg 25 mg PO DAILY 05/27/22 Unknown History tablet,extended release 24 hr ibuprofen 600 mg tablet 600 mg PO Q8H PRN PRN pain #20 01/21/23 Unknown Rx TABLETS ondansetron 4 mg disintegrating 4 mg PO Q8H PRN PRN Nausea #10 tabs 04/28/23 Unknown Rx tablet oxycodone-acetaminophen 5 mg-325 1 tab PO Q6H PRN PRN Pain 3 days 04/28/23 Unknown Rx mg tablet #12 TABLETS Allergy/AdvReac Type Severity Reaction Status Date / Time hydromorphone HCl (From Allergy Severe Anaphylaxis Verified 05/04/24 10:55 Dilaudid) meperidine HCl (From Demerol) AdvReac PT STATES Verified 05/04/24 10:55 DOES NOT LIKE THE WAY IT MAKES HER FEEL Surgical History Hx of ovarian cystectomy Hx of tonsillectomy History of salpingectomy Social History Smoking Status: Former smoker ROS ROS ED ROS Narrative Denies recent illness. Constitutional Constitutional ED: Denies fever(s) Eyes Eyes: Denies blurry vision ENT ENT ED: Denies ear pain Cardiovascular Cardiovascular: Denies chest pain Respiratory/Chest Respiratory/Chest: Denies cough Gastrointestinal Gastrointestinal: Denies abdominal pain Genitourinary Genitourinary ED: Denies dysuria Musculoskeletal Musculoskeletal: Denies arthralgias Integumentary Denies abscess Neurologic Neurologic: Denies headache(s) Psychiatric Psychiatric: Denies anxiety Endocrine Endocrinology: Denies polydipsia Hematologic/Lymphatic Hematologic/Lymphatic: Denies easy bleeding Allergic/Immunologic Allergic/Immunologic ED: Denies mouth swelling EXAM Physical Exam Narrative Exam Narrative: 28-year-old female no acute distress. Sitting upright in bed. Vital signs are stable. Afebrile. H EENT exam unremarkable. Pupils round reactive light. No trauma. No tenderness. Neck nontender. Full range of motion. Back nontender. Lungs clear. Heart regular rate rhythm no murmur. Chest wall ribs nontender. Abdomen soft nontender. Pelvic girdle intact. Moving all 4 extremities. Neurovascularly intact. Right leg and upper extremities are nontender. Normal range of motion and strength. Left hip and knee are nontender. Left lower tib-fib tender just above the ankle. Mild ankle tenderness no swelling. Achilles tendon is intact. Dorsi plantarflexion intact. DP pulse intact. Tenderness of the anterior aspect of the foot no significant swelling. Able to wiggle her toes. Normal touch sensation. No deformity. No lacerations. She is awake and alert no focal motor deficits. Const Vital Signs: 05/04/24 10:02 Temperature 97.6 F L Temperature Source Temporal Pulse Rate 75 Respiratory Rate 18 Blood Pressure 154/100 H Blood Pressure Mean 118 Pulse Ox 96 Oxygen Delivery Method Room Air Positive well nourished and well developed; Negative for cachectic, contractures or unkempt General Appearance ED: well developed and NAD; Negative for unkempt, cachectic or contractures Nutritional Appearance: Negative for cachectic HEENT Reports moist mucous membranes normocephalic and atraumatic; Negative for trauma or tenderness Eyes PERRL General Eye ED: Negative for other Neck full ROM and supple Thyroid: Negative for tender Lymph Lymphatic: Negative for other Chest Wall inspection of chest normal and palpation of chest normal Chest: Negative for other Resp normal respiratory effort, no retractions and clear to auscultation bilaterally Effort and Inspection: Negative for pain with movement Auscultation: Negative for rales, rhonchi or wheezes Percussion: Negative for other Cardio regular rate, regular rhythm, S1 normal heart sound, S2 normal heart sound and no murmurs Rate: Negative for bradycardia or tachycardic Rhythm: Negative for abnormal rhythm Bruits: Negative for other GI non-tender, non-distended and no masses Inspection: Negative for abdominal distention Palpation: soft; Negative for tender, guarding or rebound tenderness present Bladder / Kidney Exam: No other Back/Spine no CVA tenderness General Back: Negative for CVA tenderness Cervical Spine: Negative for cervical spine tenderness Thoracic Spine / Upper Back: Negative for thoracic spinal tenderness Lumbar Spine / Lower Back: Negative for lumbar spinal tenderness Extremity normal to inspection and full ROM Extremity Narrative: Tenderness left lower leg, ankle and foot. No deformity. No signs of swelling. Neurovascularly intact. General Extremety ED: Yes weight-bearing difficulty; Negative for cyanosis or edema General Extremity: weight-bearing difficulty; Negative for cyanosis or edema Neuro oriented x3, CN's II-XII intact bilaterally and moves all extremities Sensorium / Orientation: alert, oriented to person, oriented to place and oriented to time; Negative for orientation impaired or confused Motor Exam: strength 5/5 throughout Psych mental status grossly normal Appearance: Negative for unkempt Mood & Affect: Negative for anxious Skin no wounds Lesions: no lesions Rashes: no rashes Trauma: Negative for abrasion, laceration or puncture MDM MDM MDM Narrative Medical decision making narrative: 28-year-old injury to left lower ankle and foot. X-rays being obtained. Repeat exam unchanged at 10:52 AM. She and I went over her x-rays. Ice. Motrin and Tylenol. Follow-up if not improving. Treated as a sprain. Patient did not want an Aircast but she did want a postop shoe. History & Record Review Discussion w/independent historian: Patient Radiography Diagnostic Testing: Clinical Impression(s) from Imaging Studies Ankle X-Ray 05/04/24 10:09 IMPRESSION: Normal x-ray examination of the ankle. Electronically Signed: Saul Ahmadi MD at 10:36 EDT , Foot X-Ray 05/04/24 10:09 IMPRESSION: Normal x-ray examination of the foot. Electronically Signed: Saul Ahmadi MD at 10:30 EDT , Left ankle x-ray, 3 views, interpreted by myself and the radiologist shows no acute abnormality. No fracture or dislocation. Left foot x-ray, 3 views, interpreted by myself and the radiologist shows no acute fracture or dislocation. Normal x-rays. Discharge Plan Triage Chief Complaint: Lower Extremity Injury ED Provider: Avtar Brumfield Dx/Rx/DC Orders Clinical Impression: Ankle sprain, Foot sprain Instructions: ED Foot Sprain, ED Ankle Sprain (Adult) Prescriptions: No Action trazodone 50 MG tablet 50 mg PO QHS omeprazole 20 MG capsule,delayed release(DR/EC) 20 mg PO DAILY memantine 10 MG tablet 10 mg PO DAILY buspirone 10 mg tablet 10 mg PO BID Patient Comments: TAKE 1 TABLET BY MOUTH TWICE DAILY hydrochlorothiazide 12.5 mg capsule 12.5 mg PO DAILY Patient Comments: TAKE 1 CAPSULE BY MOUTH ONCE DAILY metoprolol succinate 25 mg tablet extended release 24 hr 25 mg PO DAILY Patient Comments: TAKE 1 TABLET BY MOUTH ONCE DAILY ibuprofen 600 mg tablet 600 mg PO Q8H PRN PRN (Reason: pain) Qty: 20 0RF oxycodone-acetaminophen [oxycodone-acetaminophen] 5-325 mg tablet 1 tab PO Q6H PRN PRN (Reason: Pain) 3 Days Qty: 12 0RF ondansetron [ondansetron] 4 mg tablet,disintegrating 4 mg PO Q8H PRN PRN (Reason: Nausea) Qty: 10 0RF Primary Care Provider: Carlos Zavala Referrals: Carlos Zavala MD [Primary Care Provider] - 1 Week if not improving Activity Restrictions/Additional Instructions: Ice and elevate your foot and ankle to decrease pain and swelling. Your x-rays were normal. No broken bones or dislocation. Alternate Motrin and Tylenol for pain and inflammation. Follow-up with your doctor if not improving. Print Language: Vietnamese Disposition Disposition: Home, Self Care
[2024-05-04 10:58] VITALS: BP 140/96; PULSE 68; RESP 16; TEMP 36.8; O2SAT 97
== END 2024-05-04 11:07 | disposition home or self-care (01) ==
PROVIDERS: Emergency Provider Emergency Medicine; PCP Family Medicine; Visit Provider Emergency Medicine
DX: S93.402A Sprain of unspecified ligament of left ankle, initial encounter (principal); I10 Essential (primary) hypertension; Z87.891 Personal history of nicotine dependence; W16.622A Jumping or diving into natural body of water striking bottom causing other injury, initial encounter; S93.602A Unspecified sprain of left foot, initial encounter; Y92.828 Other wilderness area as the place of occurrence of the external cause; F41.9 Anxiety disorder, unspecified
CPT/HCPCS: 73610; 73630; 99283

== ENCOUNTER 2025-01-16 15:52 | Emergency (ER) | payer SELFPAY ==
[2025-01-16 15:53] VITALS: BP 200/126; PULSE 99; RESP 18; TEMP 37.1; O2SAT 100; BMI 53.4
--- NOTE | 2025-01-16 16:13 | CT_ITS ---
PROCEDURE: ABDOMEN/PELVIS WITHOUT CONT 01/16/2025 REASON FOR EXAM: FLANK PAIN TECHNIQUE: Abdomen and pelvis CT without intravenous contrast. Noncontrast technique limits evaluation of the abdominal and pelvic viscera. Coronal and Sagittal reconstruction series were provided. One or more dose reduction techniques were used (e.g., Automated exposure control, adjustment of the mA and/or kV according to patient size, use of iterative reconstruction technique). PATIENT PREPARATION: Per protocol CTDIvol 24.2 mGy, DLP 1275 mGy-cm COMPARISON: CT abdomen and pelvis 04/28/2023 FINDINGS: Lung bases: Unremarkable. Liver: Normal size. No obvious mass. Gallbladder: Unremarkable. Spleen: Normal size. Pancreas: Normal size. No surrounding inflammation. Adrenals: Unremarkable. Kidneys: No stone or hydronephrosis. Ureters: Mild left hydroureter. Bladder: There is a calcification measuring 4 mm at the left ureterovesicular junction (series 2, image 155).. Reproductive Organs: Intrauterine device in appropriate positioning. Bowel: No obstruction or inflammation. Normal appendix. Lymph nodes: No significant lymphadenopathy. Vasculature: Unremarkable. Bones: Bone island in the left iliac wing, unchanged. Soft tissues: Tiny fat containing umbilical hernia CT/Abdomen/Pelvis without Cont IMPRESSION: Stone at the left ureterovesicular junction measuring 4 mm resulting in mild le ft hydroureter. No significant hydronephrosis. Reading Location: [id number]
--- NOTE | 2025-01-16 16:17 | EDS_ITS ---
HPI History of Present Illness Chief Complaint: Flank Pain Informant: patient Onset/Context/Timing Onset: Days (3) Context: Sudden Onset Timing: Intermittent Quality: Sharp Location: Lower flank bilaterally, left worse than right Worsened by: Movement Relieved by: Nothing Narrative Narrative: Patient presents with back and flank pain that has been getting worse over the past 3 days. Patient states it began rather suddenly. Patient states it did get better and then began suddenly again today. Patient states it is worse on the left than on the right. Patient states it is worse with movement. Patient admits to some nausea but denies any vomiting. Patient admits to urinary frequency but denies any dysuria or hematuria. Patient denies any fevers or chills. [facility] Medical History Anxiety Hypertension Ovarian cyst Home Medications ?Medication ?Instructions ?Recorded ?Last Taken ?Type memantine 10 mg tablet 10 mg PO DAILY 04/11/20 Unkn own History omeprazole 20 mg capsule,delayed 20 mg PO DAILY Unknown History release trazodone 50 mg tablet 50 mg PO QHS 04/11/20 Unknow n History buspirone 10 mg tablet 10 mg PO BID 05/27/22 Unknow n History hydrochlorothiazide 12.5 mg capsule 12.5 mg PO DAILY 0 05/27/22 Unknown History metoprolol succinate 25 mg 25 mg PO DAILY 05/27/22 Unk nown History tablet,extended release 24 hr ibuprofen 600 mg tablet 600 mg PO Q8H PRN PRN pain # 20 01/21/23 Unknown Rx TABLETS ondansetron 4 mg disintegrating 4 mg PO Q8H PRN PRN Na usea #10 tabs 04/28/23 Unknown Rx tablet oxycodone-acetaminophen 5 mg-325 1 tab PO Q6H PRN PRN Pain 3 days 04/28/23 Unknown Rx mg tablet #12 TABLETS hydrocodone-acetaminophen 5-325mg 1 tab PO Q6H PRN PRN Pain 3 days 01/16/25 Unknown Rx 5mg-325mg #10 TABLETS Allergy/AdvReac Type Severity Reaction Status Date / Time hydromorphone HCl (From Allergy Severe Anaphylaxis Verified 01/16/25 15:53 Dilaudid) meperidine HCl (From Demerol) AdvReac PT STATES Verified 01/16/25 15:53 DOES NOT LIKE THE WAY IT MAKES HER FEEL Surgical History Hx of ovarian cystectomy Hx of tonsillectomy History of salpingectomy Social History Smoking Status: Former smoker ROS ROS ED Constitutional Constitutional ED: Denies chills or fever(s) Eyes Eyes: Denies blurry vision or change in vision ENT ENT ED: Denies rhinorrhea or sore throat Cardiovascular Cardiovascular: Denies chest pain or palpitations Respiratory/Chest Respiratory/Chest: Denies cough or dyspnea Gastrointestinal Gastrointestinal: Reports nausea; Denies vomiting Genitourinary Genitourinary ED: Reports urinary frequency; Denies dysuria or hematuria Musculoskeletal Musculoskeletal: Reports back pain; Denies neck pain Integumentary Denies abscess or rash Neurologic Neurologic: Denies headache(s) or weakness Allergic/Immunologic Allergic/Immunologic ED: Denies mouth swelling or urticaria EXAM Physical Exam Const Vital Signs: 01/16/25 15:53 01/16/25 16:56 01/16/25 18:00 Temperature 98.7 F 98.5 F 98.2 F Temperature Source Oral Oral Oral Pulse Rate 99 72 72 Respiratory Rate 18 18 18 Blood Pressure 200/126 H 150/97 H 144/73 H Blood Pressure Mean 150 114 96 Pulse Ox 100 95 96 Oxygen Delivery Method Room Air Room Air Room Air Positive well nourished and well developed Constitutional Narrative: BMI is 53.4 General Appearance ED: well developed and NAD HEENT Reports moist mucous membranes Neck supple and no JVD Resp normal respiratory effort and clear to auscultation bilaterally Cardio regular rate and regular rhythm GI non-distended Palpation: soft and tender suprapubic (Mild); Negative for guarding or rebound tenderness present Back/Spine no CVA tenderness Back/Spine Narrative: There is mild tenderness of the lower flanks bilaterally Neuro oriented x3, CN's II-XII intact bilaterally and no sensory deficits noted Sensorium / Orientation: alert Motor Exam: strength 5/5 throughout MDM MDM MDM Narrative Medical decision making narrative: Differential diagnosis includes urinary tract infection, ureteral calculus, pyelonephritis, bowel obstruction, perforation, dehydration, ectopic , and electrolyte abnormality. CBC will be obtained to assess for leukocytosis and anemia. Basic metabolic profile will be obtained to assess for electrolyte abnormality renal function. Serum hCG will be obtained to assess for . Urinalysis will be obtained to assess for urinary tract infection and hematuria. CT scan of the abdomen and pelvis will be obtained to assess for ureteral calculus, pyelonephritis, bowel obstruction, and perforation. History & Record Review Additional record(s) reviewed:: Prior labs Lab Data Attestation: I reviewed the patient's lab results. Lab results narrative: CBC was reviewed. There is a mild leukocytosis of 13.1. This is unchanged compared to previous results. The remainder is within normal limits. Basic metabolic profile was reviewed and was within normal limits. Urinalysis was reviewed. Occult blood was 150 with 10-25 red blood cells. There is no evidence of urinary tract infection. Serum hCG was reviewed and was negative. Labs: Laboratory Results - last 24 hr 01/16/25 16:30 WBC 13.1 H RBC 5.05 Hgb 14.9 Hct 43.5 MCV 86.1 MCH 29.5 MCHC 34.3 RDW Std Deviation 39.5 RDW Coeff of Michel 12.5 Plt Count 297 MPV 9.3 Immature Gran % (Auto) 0.500 Neut % (Auto) 67.9 Lymph % (Auto) 24.3 [place] % (Auto) 6.0 Eos % (Auto) 0.8 Baso % (Auto) 0.5 Absolute Neuts (auto) 8.9 H Absolute Lymphs (auto) 3.18 Nucleated RBC % 0 Sodium 139 Potassium 3.9 Chloride 102 Carbon Dioxide 23.9 Anion Gap 12 BUN 11 Creatinine 0.81 Estim Creat Clear Calc 141.75 Est GFR (MDRD) Non-Af 99 BUN/Creatinine Ratio 13.2 Glucose 103 H Calcium 9.2 Serum , Qual NEGATIVE Urine Color Yellow Urine Clarity Sl. Cloudy Urine pH 6.0 Ur Specific [place] 1.025 Urine Protein 30 H Urine Glucose (UA) Normal Urine Ketones Negative Urine Occult Blood 150 H Urine Nitrite Negative Urine Bilirubin Negative Urine Urobilinogen Normal Ur Leukocyte Esterase 25 H Urine RBC 10-25 SEEN Urine WBC 0-5 SEEN Ur Squamous Epith Cells 0-5 SEEN Urine Bacteria 0 SEEN Urine Mucus 0 SEEN Radiography Diagnostic Testing: Clinical Impression(s) from Imaging Studies Abdomen/Pelvis CT 01/16/25 16:13 IMPRESSION: Stone at the left ureterovesicular junction measuring 4 mm resulting in mild left hydroureter. No significant hydronephrosis. Reading Location: [id number] scan of the abdomen and pelvis was obtained. There is a 4 mm calculus at the left ureterovesicular junction and mild left hydroureter. This was interpreted by the radiologist was also independently reviewed by myself. Treatment and Re-Evaluation :: Patient was given IV fluids, Zofran, and fentanyl. Patient was feeling better on reevaluation. Patient was advised of her findings. Patient was given a prescription for a short course of [place]. Patient was instructed to drink plenty of fluids. Patient was given a referral for urology for follow-up care. Patient was instructed to return if worse in any way. Patient understood and was agreeable with the plan. All questions were answered. Discharge Plan Triage Chief Complaint: Flank Pain ED Provider: Favian Caceres Dx/Rx/DC Orders Clinical Impression: Calculus of distal left ureter, Hypertension Instructions: ED Kidney Stone with Pain Prescriptions: New hydrocodone-acetaminophen 5-325 mg tablet 1 tab PO Q6H PRN PRN (Reason: Pain) 3 Days Qty: 10 0RF No Action trazodone 50 MG tablet 50 mg PO QHS omeprazole 20 MG capsule,delayed release(DR/EC) 20 mg PO DAILY memantine 10 MG tablet 10 mg PO DAILY buspirone 10 mg tablet 10 mg PO BID Patient Comments: TAKE 1 TABLET BY MOUTH TWICE DAILY hydrochlorothiazide 12.5 mg capsule 12.5 mg PO DAILY Patient Comments: TAKE 1 CAPSULE BY MOUTH ONCE DAILY metoprolol succinate 25 mg tablet extended release 24 hr 25 mg PO DAILY Patient Comments: TAKE 1 TABLET BY MOUTH ONCE DAILY ibuprofen 600 mg tablet 600 mg PO Q8H PRN PRN (Reason: pain) Qty: 20 0RF oxycodone-acetaminophen [oxycodone-acetaminophen] 5-325 mg tablet 1 tab PO Q6H PRN PRN (Reason: Pain) 3 Days Qty: 12 0RF ondansetron [ondansetron] 4 mg tablet,disintegrating 4 mg PO Q8H PRN PRN (Reason: Nausea) Qty: 10 0RF Primary Care Provider: Carlos Zavala Referrals: Carlos Zavala MD [Primary Care Provider] - 5-7 Days Diego Durant MD [Med Staff - Active Staff] - 3-5 Days Print Language: [place] Citizen Disposition Disposition: Home, Self Care
[2025-01-16 16:40] LABS: Absolute Lymphocyte Count 3.18 X10^3/uL (0.83-4.51); Absolute Neutrophil Count 8.9 X10^3/uL (2.0-7.7); Basophil# 0.06 X10^3/uL; Basophil% 0.5 % (0-1); Eosinophils% 0.8 % (0-5); Hematocrit 43.5 % (37-47); Hemoglobin 14.9 g/dL (12.0-15.0); Lymphocyte # 3.18 X10^3/ul (0.83-4.51); Lymphocyte % 24.3 % (19-41); Mean Corp Hgb Conc 34.3 g/dL (32-36); Mean Corpuscular Hgb 29.5 pg (27.0-32.0); Mean Corpuscular Volume 86.1 fL (81-99); Mean Platelet Vol. 9.3 fl (6.2-12.0); Monocyte# 0.78 X10^3/uL; NRBC Flagged by Analyzer 0 % (0-5); Neutrophil % 67.9 % (47-70); Platelet Count 297 K/mm3 (150-450); RBC Distribution Width CV 12.5 % (11.6-14.6); RBC Distribution Width SD 39.5 fl (35.1-43.9); Red Blood Count 5.05 M/mm3 (4.2-5.4); White Blood Count 13.1 K/mm3 (4.4-11.0)
[2025-01-16 16:44] LABS: Bacteria 0 SEEN /hpf (None Seen); Mucous, Urine 0 SEEN /hpf (<or=2+)
[2025-01-16] MEDS: Ondansetron 4 MG/2 ML Vial IV (16:49)
[2025-01-16] MEDS: fentaNYL 100 MCG/2 ML Ampul 50 MCG IV (16:49)
[2025-01-16 16:56] VITALS: BP 150/97; PULSE 72; RESP 18; TEMP 36.9; O2SAT 95
[2025-01-16 16:57] LABS: Internal QC Validated? YES +Cl - CLEAR BKGD; Pregnancy, Serum, hCG Quali. NEGATIVE Negative
[2025-01-16 16:58] LABS: Record Kit Lot#, Serum Preg. 947241
[2025-01-16 17:27] LABS: Color, Urine Yellow (Yellow); Glucose, Dipstick Normal (Normal); Ketone-Dipstick Negative (Negative); Leukocyte Esterase-Dipstick 25 /ul (Negative); Nitrite-Dipstick Negative (Negative); Occult Blood-Urine 150 /ul (Negative); Protein-Dipstick 30 mg/dl (Negative); Specific Gravity, Urine 1.025 (1.002-1.030); Urine Bilirubin Dipstick Negative (Negative); Urine Clarity Sl. Cloudy (Clear); Urine Urobilinogen Normal (Normal)
[2025-01-16 17:30] LABS: Anion Gap 12 (5-15); BUN 11 mg/dL (4-19); BUN/Creat Ratio 13.2 RATIO (10-20); Calcium,Total 9.2 mg/dL (7.6-11.0); Carbon Dioxide 23.9 mmol/L (21.0-32.0); Chloride 102 mmol/L (98-108); Creatinine, Serum 0.81 mg/dL (0.70-1.20); EST Glomerular Filtration Rate 99 (>60); Estimated Creatinine Clearance 141.75 ml/min (50-250); Glucose 103 mg/dL (70-99); Potassium 3.9 mmol/L (3.3-5.1); Sodium Level 139 mmol/L (133-145)
[2025-01-16 18:00] VITALS: BP 144/73; PULSE 72; RESP 18; TEMP 36.8; O2SAT 96
[2025-01-16 18:20] LABS: Red Blood Cells-Urine 10-25 SEEN /hpf (0-5); White Blood Cells 0-5 SEEN /hpf (0-5)
[2025-01-16 18:21] LABS: Squamous Epithelial Cells - UA 0-5 SEEN /hpf (5-10)
[2025-01-16 18:50] VITALS: BP 154/90; PULSE 91; RESP 16; TEMP 36.6; O2SAT 97
== END 2025-01-16 18:51 | disposition home or self-care (01) ==
PROVIDERS: Emergency Provider Emergency Medicine; PCP Family Medicine; Visit Provider Emergency Medicine
DX: N20.1 Calculus of ureter (principal); Z87.891 Personal history of nicotine dependence; R11.0 Nausea; R10.9 Unspecified abdominal pain; I10 Essential (primary) hypertension; R35.0 Frequency of micturition
CPT/HCPCS: 74176; 80048; 81001; 84703; 85025; 96374; 96375; 99282; A4216; J2405